=== PATIENT | male | born 1955 | race African-American/Black ===

== ENCOUNTER 2017-03-20 06:21 | Emergency (ER) | payer SELFPAY ==
[~2017-03-20] VITALS: Ht 193 cm; Wt 128.0 kg
[~2017-03-20 06:21] MED LIST: HYDR12.57 PO; LISI-366 PO
[2017-03-20 06:22] VITALS: BP 160/85; PULSE 87; RESP 16; TEMP 98.4; O2SAT 95
[2017-03-20 07:39] VITALS: BP 173/92; PULSE 68; RESP 24; O2SAT 99
[2017-03-20] MEDS ORDERED: LISI40TA PO ×2 (07:39→09:39)
[2017-03-20] MEDS ORDERED: SODIUM CHLORIDE 0.9% FLUSH 10 ML FLUSH IV FLUSH PRN (07:45)
[2017-03-20 07:48] VITALS: O2SAT 99
[2017-03-20 08:00] VITALS: BP 169/98; PULSE 66; RESP 22; O2SAT 99
[2017-03-20 08:14] LABS: AUTOMATED NEUTROPHIL # 1.5 TH/MM3 (1.8-7.7); EOSINOPHIL # 0.1 TH/MM3 (0-0.4); EOSINOPHIL % 1.6 % (0.0-4.0); HEMO FLAGS DIFF FINAL; LYMPH % 43.3 % (9.0-44.0); LYMPHOCYTE # 1.6 TH/MM3 (1.0-4.8); MEAN CELL VOLUME 98.7 FL (80.0-100.0); MEAN CORPUSCULAR HEMOGLOBIN 33.2 PG (27.0-34.0); MEAN CORPUSCULAR HGB CONC 33.6 % (32.0-36.0); MONO % 12.7 % (0.0-8.0); NEUT % 41.4 % (16.0-70.0); PLATELET COUNT 151 TH/MM3 (150-450); RED BLOOD COUNT 3.85 MIL/MM3 (4.50-5.90); WHITE BLOOD COUNT 3.7 TH/MM3 (4.0-11.0)
--- NOTE | 2017-03-20 08:30 | PD ---
HPI Chief Complaint: Complaint Time Seen by Provider: 07:30 Travel History International Travel<30 days: No Contact w/Intl Traveler<30days: No Traveled to known affect area: No History of Present Illness HPI The patient 61 years old. He's had testicular swelling for 1 week. He notes it 's worse after working for 12 hours at the [employer]. He reports normal bowel and bladder habits. His appetite has been normal. He reports that he has been noncompliant with hydrochlorothiazide and lisinopril for a few months due to lack of insurance. Previously he was following with the patient assistance program. He denies chest pain or shortness of breath. No abdominal pain. No fever. PFSH Past Medical History Cardiovascular Problems: Yes (HTN) Diabetes: No (never been checked) Hepatitis: Yes (liver disease) Tetanus Vaccination: < 5 Years Influenza Vaccination: No Past Surgical History Surgical History: No Previous Surgery Social History Alcohol Use: Yes (OCC) Tobacco Use: No Substance Use: No Allergies-Medications (Allergen,Severity, Reaction): Coded Allergies: Penicillin (Verified Allergy, Severe, Dizziness, 03/20/17) Reported Meds & Prescriptions Reported Meds & Active Scripts Active Lisinopril 40 Mg Tab 40 Mg PO DAILY 30 Days Hydrochlorothiazide 12.5 Mg Cap 12.5 Mg PO DAILY 30 Days Review of Systems Except as stated in HPI: all other systems reviewed are Neg General / Constitutional: No: Fever Genitourinary: No: Urgency, Decreased Urinary Output, Flank Pain Physical Exam Narrative GENERAL: 61-year-old male well-nourished well-developed no acute distress SKIN: Focused skin assessment warm/dry. There is no crepitus or cellulitic change about the perineum or scrotum. HEAD: Atraumatic. Normocephalic. EYES: Pupils equal and round. No scleral icterus. No injection or drainage. ENT: No nasal bleeding or discharge. Mucous membranes pink and moist. NECK: Trachea midline. No JVD. CARDIOVASCULAR: Regular rate and rhythm. No murmur appreciated. RESPIRATORY: No accessory muscle use. Clear to auscultation. Breath sounds equal bilaterally. GASTROINTESTINAL: Abdomen is somewhat prominent though soft and nontender. MUSCULOSKELETAL: No obvious deformities. No clubbing. No cyanosis. No edema. 2+ pitting edema from the toes to the mid thighs bilaterally. NEUROLOGICAL: Awake and alert. No obvious cranial nerve deficits. Motor grossly within normal limits. Normal speech. PSYCHIATRIC: Appropriate mood and affect; insight and judgment normal. Data Data Last Documented VS Vital Signs Date Time Temp Pulse Resp B/P Pulse Ox O2 Delivery O2 Flow Rate FiO2 03/20/17 09:00 56 24 163/83 99 Room Air 03/20/17 06:22 98.4 Vital signs reviewed Orders Complete Blood Count With Diff (03/20/17 07:44) Comprehensive Metabolic Panel (03/20/17 07:44) Iv Access Insert/Monitor (03/20/17 07:44) Ecg Monitoring (03/20/17 07:44) Oximetry (03/20/17 07:44) Sodium Chloride 0.9% Flush (Ns Flush) (03/20/17 07:45) Us Testicles W Doppler (03/20/17 07:44) Labs Laboratory Tests Test 03/20/17 07:50 White Blood Count 3.7 TH/MM3 Red Blood Count 3.85 MIL/MM3 Hemoglobin 12.8 GM/DL Hematocrit 38.0 % Mean Corpuscular Volume 98.7 FL Mean Corpuscular Hemoglobin 33.2 PG Mean Corpuscular Hemoglobin 33.6 % Concent Red Cell Distribution Width 14.0 % Platelet Count 151 TH/MM3 Mean Platelet Volume 8.2 FL Neutrophils (%) (Auto) 41.4 % Lymphocytes (%) (Auto) 43.3 % Monocytes (%) (Auto) 12.7 % Eosinophils (%) (Auto) 1.6 % Basophils (%) (Auto) 1.0 % Neutrophils # (Auto) 1.5 TH/MM3 Lymphocytes # (Auto) 1.6 TH/MM3 Monocytes # (Auto) 0.5 TH/MM3 Eosinophils # (Auto) 0.1 TH/MM3 Basophils # (Auto) 0.0 TH/MM3 CBC Comment DIFF FINAL Differential Comment Sodium Level 141 MEQ/L Potassium Level 3.5 MEQ/L Chloride Level 105 MEQ/L Carbon Dioxide Level 27.2 MEQ/L Anion Gap 9 MEQ/L Blood Urea Nitrogen 3 MG/DL Creatinine 0.69 MG/DL Estimat Glomerular Filtration 142 ML/MIN Rate Random Glucose 100 MG/DL Calcium Level 8.4 MG/DL Total Bilirubin 1.3 MG/DL Aspartate Amino Transf 81 U/L (AST/SGOT) Alanine Aminotransferase 38 U/L (ALT/SGPT) Alkaline Phosphatase 151 U/L Total Protein 8.3 GM/DL Albumin 2.2 GM/DL MDM Medical Decision Making Medical Screen Exam Complete: Yes Emergency Medical Condition: Yes Medical Record Reviewed: Yes Differential Diagnosis Hydrocele, varicocele, edema, liver disease, Amanda's gangrene, scrotal abscess Narrative Course CBC & BMP Diagram 03/20/17 07:50 T bili 1.3 AST 81 Alk phos 151 T protein 8.3 Albumin 2.2 Testicular doppler: Bilateral hydrocele and varicocele noted. A sizable right inguinal hernia containing fluid and small bowel is noted. Pronounced swelling of the scrotal soft tissues. The patient does not have bowel obstruction or strangulation. with the hernia is reducible to bedside although the patient has a large amount of scrotal edema. We'll provide him with a refill for his Lasix and hydrochlorothiazide. He was counseled to stop drinking alcohol. He was also advised that early cirrhosis is a concern and the risks of continued alcohol consumption were discussed in detail. The patient verbalized understanding. Case management to discuss the patient outpatient follow-up responsibilities. Diagnosis Primary Impression: Edema Qualified Code: R60.9 - Edema, unspecified type Additional Impression: Hernia, inguinal, right Referrals: Felipe Coyle MD call for appointment Amauri Fox MD call for appointment Alda Lorenzo MD call for appointment Patient Assistance Program Additional Instructions: You have a choice when it comes to health care, and we are glad that you chose [facility]. Hopefully, we have met your expectations on today's visit. You are welcome to return to [facility] at any time, as we are committed to meeting the health care needs of our community. Med/Other Pt SpecificInfo: Prescription(s) given Scripts Lisinopril 40 Mg Tab40 Mg PO DAILY 30 Days Ref 0 Prov:Betito Montesinos MD 03/20/17 Hydrochlorothiazide 12.5 Mg Cap12.5 Mg PO DAILY 30 Days Ref 3 Prov:Betito Montesinos MD 03/20/17 Disposition: 01 DISCHARGE HOME Condition: Stable Betito Montesinos MD Mar 20, 2017 08:30
[2017-03-20 08:32] LABS: ALT (GPT) 38 U/L (12-78); ANION GAP 9 MEQ/L (5-15); AST (GOT) 81 U/L (15-37); BICARBONATE 27.2 MEQ/L (21.0-32.0); BLOOD UREA NITROGEN 3 MG/DL (7-18); CHLORIDE 105 MEQ/L (98-107); GLOMERULAR FILTRATION RATE 142 ML/MIN (>89); POTASSIUM 3.5 MEQ/L (3.5-5.1); SODIUM (NA) 141 MEQ/L (136-145)
[2017-03-20 08:35] LABS: ALKALINE PHOSPHATASE 151 U/L (45-117); TOTAL BILIRUBIN ADULT 1.3 MG/DL (0.2-1.0)
[2017-03-20 09:00] VITALS: BP 163/83; PULSE 56; RESP 24; O2SAT 99
--- NOTE | 2017-03-20 09:16 | RADRPT ---
EXAM DATE/TIME: 03/20/2017 07:55 [facility] COMPARISON: CT ABDOMEN & PELVIS W CONTRAST, July 03, 2015, 11:09. INDICATIONS : Pain. MEDICAL HISTORY : Hypertension. Hepatitis. SURGICAL HISTORY : Tonsillectomy. ENCOUNTER: Initial ACUITY: 1 week PAIN SCORE: 8/10 LOCATION: Bilateral testicles. MEASUREMENTS: RIGHT TESTICLE: 3.2 x 2.2 x 2.3cm LEFT TESTICLE: 3.4 x 1.9 x 1.9cm FINDINGS: The testicles are intact with normal Doppler blood flow bilaterally. No intratesticular mass is ident ified. A tiny epididymal cyst is present on the right side. Bilateral hydrocele and varicocele are no aries. A sizable right inguinal hernia containing fluid and bowel loops is noted. There is pronounced s welling of the scrotal soft tissues. CONCLUSION: Testicles are unremarkable. Sizable right bowel containing and fluid containing right inguinal hernia . Bilateral hydroceles. Phil Dao MD on March 20, 2017 at 9:10 Board Certified Radiologist. This report was verified electronically.
[2017-03-20] MEDS ORDERED: HYDR12.57 PO (09:39)
== END 2017-03-20 10:15 | disposition home or self-care (01) ==
LOC: NEPE 06:21
DX: F10.10 Alcohol abuse, uncomplicated (principal); I10 Essential (primary) hypertension; K40.90 Unilateral inguinal hernia, without obstruction or gangrene, not specified as recurrent; Z91.19 Patient's noncompliance with other medical treatment and regimen
CPT/HCPCS: 76870; 80053; 85025; 93975; 99284

== ENCOUNTER 2017-10-20 10:37 | Inpatient (IN) | payer SELFPAY ==
[~2017-10-20] VITALS: Ht 193 cm; Wt 135.8 kg
[2017-10-20] VITALS (7 sets, daily range): BP systolic 123–160; BP diastolic 63–82; PULSE 76–97; RESP 17–20; TEMP 97.7–99.1; O2SAT 96–99
[~2017-10-20 10:37] MED LIST changes: -LISI-366 PO; +LISI40TA PO
[2017-10-20] MEDS ORDERED: FUROSEMIDE 40 MG/4 ML VIAL IV PUSH ONE (11:30)
[2017-10-20] MEDS ORDERED: AZTREONAM INJ 2,000 MG in SODIUM CHLORIDE 0.9% INJ 100 ML IV STA (11:30)
[2017-10-20] MEDS ORDERED: VANCOMYCIN INJ 1,000 MG in SODIUM CHLOR 0.9% 250 ML INJ 250 ML IV STA (11:30)
--- NOTE | 2017-10-20 11:34 | PD ---
HPI Chief Complaint: Edema Time Seen by Provider: 11:25 Travel History International Travel<30 days: No Contact w/Intl Traveler<30days: No Traveled to known affect area: No History of Present Illness HPI 62-year-old -Citizen Of [place] male with history of recurrent lower extremity and scrotal edema in the past. Patient states that last night he noticed that his right leg was very swollen, and weeping of clear fluid. He states he has been off his Lasix for over a month as he has lost his patient's assistance. Patient denies significant pain, fever, chills, or other symptoms. He does state he has had a few beers off and on but does not drink daily. There is mention in the past and his note, that he may have some liver disease. He denies shortness of breath, chest pain, abdominal pain, changes in urine or bowels. He denies being a diabetic. He complains of no pain. He is allergic to penicillin. PFSH Past Medical History Cardiovascular Problems: Yes (HTN) Diabetes: No (never been checked) Hepatitis: Yes (liver disease) Social History Alcohol Use: Yes (OCC) Tobacco Use: No Substance Use: No Allergies-Medications (Allergen,Severity, Reaction): Coded Allergies: penicillin G (Unverified Allergy, Severe, Dizziness, 04/30/17) Reported Meds & Prescriptions Reported Meds & Active Scripts Active Lisinopril 40 Mg Tab 40 Mg PO DAILY 30 Days Hydrochlorothiazide 12.5 Mg Cap 12.5 Mg PO DAILY 30 Days Review of Systems ROS Limitations: Poor Historian Except as stated in HPI: all other systems reviewed are Neg General / Constitutional: No: Fever, Chills Eyes: No: Visual changes HENT: No: Headaches Cardiovascular: No: Chest Pain or Discomfort, Palpitations, Irregular Rhythm, Tachycardia Respiratory: No: Cough, Shortness of Breath Gastrointestinal: No: Abdominal Pain Genitourinary: No: Dysuria Musculoskeletal: Positive: Edema, No: Pain Skin: Positive Lesions, No Rash Neurologic: No: Weakness Psychiatric: No: Depression Endocrine: No: Polydipsia Hematologic/Lymphatic: No: Easy Bruising Physical Exam Exam Limitations: Poor Historian Narrative GENERAL: Patient appears in no obvious distress. SKIN: Warm and dry. Normal color. Normal turgor. Patient has obvious stretching of the skin of the right lower extremity secondary to 3+ nonpitting edema, with skin breakdown in the anterior barrios with clear serous weeping fluid. He has no obvious increased warmth, or erythema suggestive of cellulitis. HEAD: Atraumatic. Normocephalic. EYES: Pupils equal and round. No scleral icterus. No injection or drainage. ENT: No nasal bleeding or discharge. Mucous membranes pink and moist. Pharynx is clear. Airways patent NECK: Trachea midline. Supple and nontender CARDIOVASCULAR: Regular rate and rhythm. RESPIRATORY: No accessory muscle use. Clear to auscultation. Breath sounds equal bilaterally. GASTROINTESTINAL: Abdomen soft, non-tender, nondistended. Hepatic and splenic margins not palpable. MUSCULOSKELETAL: Extremities without clubbing, cyanosis, or edema. No obvious deformities. NEUROLOGICAL: Awake and alert. No obvious cranial nerve deficits. Motor grossly within normal limits. Five out of 5 muscle strength in the arms and legs. Normal speech. PSYCHIATRIC: Appropriate mood and affect; insight and judgment normal. Data Data Last Documented VS Vital Signs Date Time Temp Pulse Resp B/P (MAP) Pulse Ox O2 Delivery O2 Flow Rate FiO2 10/20/17 13:05 Room Air 10/20/17 11:30 98 10/20/17 10:39 98.2 97 17 156/82 (106) Orders Orders Sepsis Workup Initiated (10/20/17 ) Electrocardiogram (10/20/17 11:30) Complete Blood Count With Diff (10/20/17 11:30) Comprehensive Metabolic Panel (10/20/17 11:30) Prothrombin Time / Inr (Pt) (10/20/17 11:30) Act Partial Throm Time (Ptt) (10/20/17 11:30) Lactic Acid Sepsis Protocol (10/20/17 11:30) Magnesium (Mg) (10/20/17 11:30) Ckmb (Isoenzyme) Profile (10/20/17 11:30) Troponin I (10/20/17 11:30) Urinalysis - C+S If Indicated (10/20/17 11:30) Blood Culture (10/20/17 11:30) Chest, Single Ap (10/20/17 11:30) Blood Glucose (10/20/17 11:30) Ecg Monitoring (10/20/17 11:30) Iv Access Insert/Monitor (10/20/17 11:30) Oximetry (10/20/17 11:30) Oxygen Administration (10/20/17 11:30) Aztreonam Inj (Azactam Inj) (10/20/17 11:30) Vancomycin Inj (Vancomycin Inj) (10/20/17 11:30) Furosemide Inj (Lasix Inj) (10/20/17 11:30) B-Type Natriuretic Peptide (10/20/17 11:30) Us Leg Venous Doppler (10/20/17 11:30) CKMB (10/20/17 11:40) CKMB% (10/20/17 11:40) Potassium Chloride (Kcl) (10/20/17 13:00) Potassium Chlor 20 Meq Premix (Kcl 20 Me (10/20/17 14:00) Us Abdomen Liver (10/20/17 ) Bilirubin Components (10/20/17 13:15) Vancomycin Consult Pharmacy (Vancomycin (10/20/17 13:30) Aztreonam Inj (Azactam Inj) (10/20/17 20:00) Admit To Inpatient (10/20/17 ) Vital Signs (Adult) Q4H (10/20/17 13:17) Activity Oob With Assistance (10/20/17 13:17) Intake + Output EUNICE.QSHIFT (10/20/17 13:17) Diet Regular Basic (10/20/17 Lunch) Sodium Chloride 0.9% Flush (Ns Flush) (10/20/17 13:30) Sodium Chloride 0.9% Flush (Ns Flush) (10/20/17 21:00) Ondansetron Inj (Zofran Inj) (10/20/17 13:30) Comprehensive Metabolic Panel (10/21/17 06:00) Complete Blood Count With Diff (10/21/17 06:00) Pt Request For Service (10/20/17 13:17) Case Management Consult (10/20/17 13:17) Heparin Inj (Heparin Inj) (10/20/17 13:30) Naloxone Inj (Narcan Inj) (10/20/17 13:30) Magnesium Hydroxide Liq (Milk Of Magnesi (10/20/17 13:30) Sennosides (Senokot) (10/20/17 13:30) Bisacodyl Supp (Dulcolax Supp) (10/20/17 13:30) Lactulose Liq (Lactulose Liq) (10/20/17 13:30) Inpatient Certification (10/20/17 ) Potassium Chloride (Kcl) (10/20/17 13:30) Admit Order (Ed Use Only) (10/20/17 13:18) Labs Laboratory Tests Test 10/20/17 11:40 White Blood Count 23.1 TH/MM3 Red Blood Count 4.42 MIL/MM3 Hemoglobin 14.1 GM/DL Hematocrit 39.9 % Mean Corpuscular Volume 90.2 FL Mean Corpuscular Hemoglobin 31.8 PG Mean Corpuscular Hemoglobin Concent 35.3 % Red Cell Distribution Width 13.8 % Platelet Count 274 TH/MM3 Mean Platelet Volume 8.4 FL Neutrophils (%) (Auto) 85.3 % Lymphocytes (%) (Auto) 7.0 % Monocytes (%) (Auto) 7.4 % Eosinophils (%) (Auto) 0.2 % Basophils (%) (Auto) 0.1 % Neutrophils # (Auto) 19.7 TH/MM3 Lymphocytes # (Auto) 1.6 TH/MM3 Monocytes # (Auto) 1.7 TH/MM3 Eosinophils # (Auto) 0.0 TH/MM3 Basophils # (Auto) 0.0 TH/MM3 CBC Comment DIFF FINAL Differential Comment Prothrombin Time 12.9 SEC Prothromb Time International Ratio 1.3 RATIO Activated Partial Thromboplast Time 29.3 SEC Urine Color TEE Urine Turbidity CLEAR Urine pH 6.0 Urine Specific [place] 1.016 Urine Protein TRACE mg/dL Urine Glucose (UA) NEG mg/dL Urine Ketones NEG mg/dL Urine Occult Blood NEG Urine Nitrite NEG Urine Bilirubin NEG Urine Urobilinogen GREATER THAN 12.0 MG/DL Urine Leukocyte Esterase NEG Urine RBC 1 /hpf Urine WBC 1 /hpf Urine Squamous Epithelial Cells 1 /hpf Microscopic Urinalysis Comment CULT NOT INDICATED Blood Urea Nitrogen 10 MG/DL Creatinine 0.77 MG/DL Random Glucose 105 MG/DL Total Protein 9.1 GM/DL Albumin 2.3 GM/DL Calcium Level 8.4 MG/DL Magnesium Level 3.0 MG/DL Alkaline Phosphatase 219 U/L Aspartate Amino Transf (AST/SGOT) 82 U/L Alanine Aminotransferase (ALT/SGPT) 56 U/L Total Bilirubin 3.4 MG/DL Sodium Level 134 MEQ/L Potassium Level 3.0 MEQ/L Chloride Level 95 MEQ/L Carbon Dioxide Level 31.2 MEQ/L Anion Gap 8 MEQ/L Estimat Glomerular Filtration Rate 124 ML/MIN Lactic Acid Level 1.4 mmol/L Total Creatine Kinase 172 U/L Creatine Kinase MB 4.8 NG/ML Troponin I LESS THAN 0.02 NG/ML B-Type Natriuretic Peptide 56 PG/ML MDM Medical Decision Making Medical Screen Exam Complete: Yes Emergency Medical Condition: Yes Medical Record Reviewed: Yes Differential Diagnosis Pedal edema. CHF. Liver disease. Ascites. Cellulitis. DVT. Narrative Course Patient is medically stable at time of exam. Labs ordered including CBC, CMP, lactic acid, proBNP, cardiac panel, urinalysis , and blood cultures 2. IV access is obtained the patient is given 40 mg Lasix IV as well as 4.5 g Zosyn IV as well as 1000 mg vancomycin IV. Chest x-ray and EKG is ordered. Ultrasound of the right lower extremity is ordered. Ultrasound is negative for DVT. CBC showed WBC of 23.1. Coagulation studies shows a PT of 12.9, and INR 1.3 Chemistry significant for sodium 134, potassium 3.0, chloride is 95. Calcium is 8.4, magnesium 3.0, total bilirubin is 3.4, AST is 82, Alk phos is 219, CK-MB is 4.8, however troponin is less than 0.02. ProBNP is 56 , total protein is 9.1 and albumin is 2.3 Urinalysis is unremarkable other than urobilinogen greater than 12. Patient is felt to be septic, and is given 20 mEq KCl p.o. in addition to 20 mEq KCl IV, and hospitalist is called for admission. Diagnosis Primary Impression: Sepsis affecting skin Admitting Information Admitting Physician Requests: Admit Condition: Stable Amauri Worley Oct 20, 2017 11:34
[2017-10-20 12:00] LABS: AUTOMATED NEUTROPHIL # 19.7 TH/MM3 (1.8-7.7); BASOPHIL % 0.1 % (0.0-2.0); EOSINOPHIL % 0.2 % (0.0-4.0); HEMATOCRIT 39.9 % (39.0-51.0); HEMOGLOBIN 14.1 GM/DL (13.0-17.0); LYMPHOCYTE # 1.6 TH/MM3 (1.0-4.8); MEAN CELL VOLUME 90.2 FL (80.0-100.0); MEAN CORPUSCULAR HEMOGLOBIN 31.8 PG (27.0-34.0); MEAN CORPUSCULAR HGB CONC 35.3 % (32.0-36.0); MEAN PLATELET VOLUME 8.4 FL (7.0-11.0); MONO % 7.4 % (0.0-8.0); MONOCYTE # 1.7 TH/MM3 (0-0.9); NEUT % 85.3 % (16.0-70.0); PLATELET COUNT 274 TH/MM3 (150-450); RED BLOOD COUNT 4.42 MIL/MM3 (4.50-5.90); RED CELL DISTRIBUTION WIDTH 13.8 % (11.6-17.2); WHITE BLOOD COUNT 23.1 TH/MM3 (4.0-11.0)
[2017-10-20 12:09] LABS: INTERNATIONAL NORMALIZED RATIO 1.3 RATIO; PROTHROMBIN TIME - PATIENT 12.9 SEC (9.8-11.6)
[2017-10-20 12:11] LABS: BLOOD, URINE NEG (NEG); GLUCOSE,URINE NEG (NEG); KETONE, URINE NEG (NEG); NITRITE,URINE NEG (NEG); SQUAMOUS EPITHELIAL CELL URINE 1 /hpf (0-5); URINE LEUKOCYTE ESTERASE NEG (NEG)
[2017-10-20 12:20] LABS: ALBUMIN 2.3 GM/DL (3.4-5.0); ALT (GPT) 56 U/L (12-78); AST (GOT) 82 U/L (15-37); BICARBONATE 31.2 MEQ/L (21.0-32.0); BLOOD UREA NITROGEN 10 MG/DL (7-18); CALCIUM 8.4 MG/DL (8.5-10.1); CHLORIDE 95 MEQ/L (98-107); CREATININE 0.77 MG/DL (0.60-1.30); GLOMERULAR FILTRATION RATE 124 ML/MIN (>89); GLUCOSE,RANDOM 105 MG/DL (74-106); SODIUM (NA) 134 MEQ/L (136-145)
--- NOTE | 2017-10-20 12:22 | RADRPT ---
EXAM DATE/TIME: 10/20/2017 11:47 [facility] COMPARISON: No previous studies available for comparison. INDICATIONS : Right leg edema. MEDICAL HISTORY : Hypertension. Hepatitis. SURGICAL HISTORY : Tonsillectomy. ENCOUNTER: Initial ACUITY: 2 weeks PAIN SCORE: 8/10 LOCATION: Right leg. TECHNIQUE: Venous ultrasound of the leg was performed from the inguinal ligament to the proximal calf. Real-kaylin e, color Doppler and spectral tracing, compression and augmentation techniques were used. FINDINGS: There is normal compressibility of the deep venous system from the inguinal region to the proximal ca lf. No echogenic clot is seen in the lumen of the common femoral, femoral, popliteal, and posterior tibial veins. There is a normal response of the venous system to proximal and distal augmentation an d respiration. Multiple enlarged inguinal lymph nodes are noted. Fatty hilum appears reasonably preserved within th e lymph nodes. CONCLUSION: Negative for deep venous thrombosis. Inguinal lymph nodes. Andriy Ivory MD FACR on October 20, 2017 at 12:19 Board Certified Radiologist. This report was verified electronically.
[2017-10-20 12:24] LABS: ALKALINE PHOSPHATASE 219 U/L (45-117); TOTAL BILIRUBIN ADULT 3.4 MG/DL (0.2-1.0); TOTAL PROTEIN 9.1 GM/DL (6.4-8.2); TROPONIN I LESS THAN 0.02 NG/ML (0.02-0.05)
[2017-10-20 12:26] LABS: URINE COLOR AMBER (YELLW/STRAW)
[2017-10-20 12:27] LABS: BILIRUBIN, URINE NEG (NEG)
[2017-10-20] MEDS ORDERED: POTASSIUM CHLORIDE 20 MEQ CONTROLLED RELEASE TAB PO ONE (13:00)
--- NOTE | 2017-10-20 13:12 | RADRPT ---
EXAM DATE/TIME: 10/20/2017 11:58 [facility] COMPARISON: No previous studies available for comparison. INDICATIONS : Cough. MEDICAL HISTORY : Hypertension. Diabetes. Liver disease. SURGICAL HISTORY : None. ENCOUNTER: Initial ACUITY: 3 days PAIN SCORE: 0/10 LOCATION: Bilateral chest FINDINGS: The heart is enlarged. The pulmonary vascular pattern is normal. The lungs are clear. CONCLUSION: 1. Cardiomegaly. 2. No focal infiltrate or pulmonary vascular congestion. Jose F Albert MD on October 20, 2017 at 13:10 Board Certified Radiologist. This report was verified electronically.
[2017-10-20] MEDS ORDERED: NALOXONE HCL 0.4 MG/ML AMP IV PUSH PRN (13:30)
[2017-10-20] MEDS ORDERED: Vancomycin Consult Pharmacy 1 EA OTHER SCH (13:30)
[2017-10-20] MEDS ORDERED: SODIUM CHLORIDE 0.9% FLUSH 10 ML FLUSH IV FLUSH PRN (13:30)
[2017-10-20] MEDS ORDERED: SENNOSIDES 8.6 MG TAB PO PRN (13:30)
[2017-10-20] MEDS ORDERED: ONDANSETRON HCL 4 MG/2 ML VIAL IVP PRN (13:30)
[2017-10-20] MEDS ORDERED: MAGNESIUM HYDROXIDE SUSP 30 ML CUP PO PRN (13:30)
[2017-10-20] MEDS ORDERED: LACTULOSE SYRUP 20 GM/30 ML CUP PO PRN (13:30)
[2017-10-20] MEDS ORDERED: POTASSIUM CHLORIDE 10 MEQ CONTROLLED RELEASE TAB PO ONE (13:30)
[2017-10-20] MEDS ORDERED: BISACODYL 10 MG SUPP RECTAL PRN (13:30)
[2017-10-20] MEDS ORDERED: POTASSIUM CHLOR 20 MEQ PREMIX 100 ML IV ONE (14:00)
--- NOTE | 2017-10-20 14:13 | PD ---
Data Data Last Documented VS Vital Signs Date Time Temp Pulse Resp B/P (MAP) Pulse Ox O2 Delivery O2 Flow Rate FiO2 10/20/17 13:05 Room Air 10/20/17 11:30 98 10/20/17 10:39 98.2 97 17 156/82 (106) Orders Orders Sepsis Workup Initiated (10/20/17 ) Electrocardiogram (10/20/17 11:30) Complete Blood Count With Diff (10/20/17 11:30) Comprehensive Metabolic Panel (10/20/17 11:30) Prothrombin Time / Inr (Pt) (10/20/17 11:30) Act Partial Throm Time (Ptt) (10/20/17 11:30) Lactic Acid Sepsis Protocol (10/20/17 11:30) Magnesium (Mg) (10/20/17 11:30) Ckmb (Isoenzyme) Profile (10/20/17 11:30) Troponin I (10/20/17 11:30) Urinalysis - C+S If Indicated (10/20/17 11:30) Blood Culture (10/20/17 11:30) Chest, Single Ap (10/20/17 11:30) Blood Glucose (10/20/17 11:30) Ecg Monitoring (10/20/17 11:30) Iv Access Insert/Monitor (10/20/17 11:30) Oximetry (10/20/17 11:30) Oxygen Administration (10/20/17 11:30) Aztreonam Inj (Azactam Inj) (10/20/17 11:30) Vancomycin Inj (Vancomycin Inj) (10/20/17 11:30) Furosemide Inj (Lasix Inj) (10/20/17 11:30) B-Type Natriuretic Peptide (10/20/17 11:30) Us Leg Venous Doppler (10/20/17 11:30) CKMB (10/20/17 11:40) CKMB% (10/20/17 11:40) Potassium Chloride (Kcl) (10/20/17 13:00) Potassium Chlor 20 Meq Premix (Kcl 20 Me (10/20/17 14:00) Us Abdomen Liver (10/20/17 ) Vancomycin Consult Pharmacy (Vancomycin (10/20/17 13:30) Aztreonam Inj (Azactam Inj) (10/20/17 20:00) Admit To Inpatient (10/20/17 ) Vital Signs (Adult) Q4H (10/20/17 13:17) Activity Oob With Assistance (10/20/17 13:17) Intake + Output EUNICE.QSHIFT (10/20/17 13:17) Diet Regular Basic (10/20/17 Lunch) Sodium Chloride 0.9% Flush (Ns Flush) (10/20/17 13:30) Sodium Chloride 0.9% Flush (Ns Flush) (10/20/17 21:00) Ondansetron Inj (Zofran Inj) (10/20/17 13:30) Comprehensive Metabolic Panel (10/21/17 06:00) Complete Blood Count With Diff (10/21/17 06:00) Pt Request For Service (10/20/17 13:17) Case Management Consult (10/20/17 13:17) Heparin Inj (Heparin Inj) (10/20/17 14:00) Naloxone Inj (Narcan Inj) (10/20/17 13:30) Magnesium Hydroxide Liq (Milk Of Magnesi (10/20/17 13:30) Sennosides (Senokot) (10/20/17 13:30) Bisacodyl Supp (Dulcolax Supp) (10/20/17 13:30) Lactulose Liq (Lactulose Liq) (10/20/17 13:30) Inpatient Certification (10/20/17 ) Potassium Chloride (Kcl) (10/20/17 13:30) Admit Order (Ed Use Only) (10/20/17 13:18) Bilirubin Components (10/20/17 11:40) Labs Laboratory Tests Test 10/20/17 11:40 White Blood Count 23.1 TH/MM3 Red Blood Count 4.42 MIL/MM3 Hemoglobin 14.1 GM/DL Hematocrit 39.9 % Mean Corpuscular Volume 90.2 FL Mean Corpuscular Hemoglobin 31.8 PG Mean Corpuscular Hemoglobin Concent 35.3 % Red Cell Distribution Width 13.8 % Platelet Count 274 TH/MM3 Mean Platelet Volume 8.4 FL Neutrophils (%) (Auto) 85.3 % Lymphocytes (%) (Auto) 7.0 % Monocytes (%) (Auto) 7.4 % Eosinophils (%) (Auto) 0.2 % Basophils (%) (Auto) 0.1 % Neutrophils # (Auto) 19.7 TH/MM3 Lymphocytes # (Auto) 1.6 TH/MM3 Monocytes # (Auto) 1.7 TH/MM3 Eosinophils # (Auto) 0.0 TH/MM3 Basophils # (Auto) 0.0 TH/MM3 CBC Comment DIFF FINAL Differential Comment Prothrombin Time 12.9 SEC Prothromb Time International Ratio 1.3 RATIO Activated Partial Thromboplast Time 29.3 SEC Urine Color TEE Urine Turbidity CLEAR Urine pH 6.0 Urine Specific [place] 1.016 Urine Protein TRACE mg/dL Urine Glucose (UA) NEG mg/dL Urine Ketones NEG mg/dL Urine Occult Blood NEG Urine Nitrite NEG Urine Bilirubin NEG Urine Urobilinogen GREATER THAN 12.0 MG/DL Urine Leukocyte Esterase NEG Urine RBC 1 /hpf Urine WBC 1 /hpf Urine Squamous Epithelial Cells 1 /hpf Microscopic Urinalysis Comment CULT NOT INDICATED Blood Urea Nitrogen 10 MG/DL Creatinine 0.77 MG/DL Random Glucose 105 MG/DL Total Protein 9.1 GM/DL Albumin 2.3 GM/DL Calcium Level 8.4 MG/DL Magnesium Level 3.0 MG/DL Alkaline Phosphatase 219 U/L Aspartate Amino Transf (AST/SGOT) 82 U/L Alanine Aminotransferase (ALT/SGPT) 56 U/L Total Bilirubin 3.4 MG/DL Sodium Level 134 MEQ/L Potassium Level 3.0 MEQ/L Chloride Level 95 MEQ/L Carbon Dioxide Level 31.2 MEQ/L Anion Gap 8 MEQ/L Estimat Glomerular Filtration Rate 124 ML/MIN Lactic Acid Level 1.4 mmol/L Total Creatine Kinase 172 U/L Creatine Kinase MB 4.8 NG/ML Troponin I LESS THAN 0.02 NG/ML B-Type Natriuretic Peptide 56 PG/ML MDM Supervised Visit with ERICK: Yes Narrative Course The history, exam, and medical decision-making in the associated midlevel provider note were completed with my assistance. I reviewed and agree with the findings presented. I attest that I had a [id number] encounter with the patient on the same day, and personally performed and documented my assessment and findings in the medical record. *My assessment and Findings: This is a 62-year-old male who presents to the emergency department with swelling of the right lower extremity which is impressive on exam with erythema, some blistering and skin breakdown. He says he used to be on Lasix but he no longer has patient assistance so he is not on any medications. He says the Lasix To swelling down. Labs demonstrate a marked leukocytosis which I suspect is secondary to the patient's cellulitis. Ultrasound was negative for DVT. He will be admitted for IV antibiotics, diuresis and wound care. Diagnosis Primary Impression: Sepsis affecting skin Condition: Stable Rhonda Molina MD Oct 20, 2017 14:13
[2017-10-20 14:32] LABS: DIRECT BILIRUBIN ADULT 2.4 MG/DL (0.0-0.2)
--- NOTE | 2017-10-20 14:32 | RADRPT ---
EXAM DATE/TIME: 10/20/2017 13:47 [facility] COMPARISON: No previous studies available for comparison. INDICATIONS : Increased lab values. MEDICAL HISTORY : Hypertension. Hepatitis. SURGICAL HISTORY : Tonsillectomy. ENCOUNTER: Initial ACUITY: 1 day PAIN SCORE: 0/10 LOCATION: Bilateral upper quadrant MEASUREMENTS: LIVER: 19.3 cm length COMMON DUCT: 5 mm RIGHT KIDNEY: 14.8 x 6.1 x 5.4 cm SPLEEN: 14.5 cm length FINDINGS: Ultrasound of the upper abdomen demonstrates increased echogenicity of the liver compatible with fatt y infiltration or hepatocellular disease. The spleen is mildly enlarged without focal lesion. There a re multiple stones within the gallbladder without wall thickening or pericholecystic fluid the larges t measuring 2 mm. The right kidney is unremarkable. There is a trace of free fluid in the hepatorenal fossa. CONCLUSION: 1. Cholelithiasis 2. Echogenic liver compatible with fatty infiltration or hepatocellular disease. 3. Splenomegaly Al Jhaveri MD on October 20, 2017 at 14:29 Board Certified Radiologist. This report was verified electronically.
[2017-10-20] MEDS: HEPARIN SODIUM - SQ 10,000 UNITS/ML VIAL SQ SCH (14:53)
[2017-10-20] MEDS ORDERED: LORazepam 1 MG TAB PO PRN (15:15)
[2017-10-20] MEDS ORDERED: LORazepam 2 MG/ML VIAL IV PUSH PRN ×4 (15:15)
[2017-10-20] MEDS ORDERED: FLUMAZENIL 0.5 MG/5 ML VIAL IV PUSH PRN (15:15)
[2017-10-20] MEDS ORDERED: LORazepam 2 MG TAB PO PRN (15:15)
--- NOTE | 2017-10-20 15:23 | HHI.HP ---
[facility] Service [facility] Primary Care Physician No Primary Care Physician Admission Diagnosis Cellulitis/Sepsis Diagnoses: Travel History International Travel<30 Days: No Contact w/Intl Traveler <30 Da: No Traveled to Known Affected Are: No History of Present Illness 62-year-old with hypertension, who presents with a several week history of worsening right lower extremity edema, erythema. He denies any fevers, chills, denies any pain. Says he otherwise feels fine. He says he came into the hospital because all his friends keep telling him that he needs to get this checked out. Patient reports right lower extremity edema which has been going on for many years, which she controls with water pills. Patient reports running out of his water pill one month ago. Review of Systems Except as stated in HPI: all other systems reviewed are Neg Past Family Social History Past Medical History Hypertension Past Surgical History Right knee tendon surgery many years ago. Reported Medications Reported Meds & Active Scripts Active Lisinopril 40 Mg Tab 40 Mg PO DAILY 30 Days Hydrochlorothiazide 12.5 Mg Cap 12.5 Mg PO DAILY 30 Days Allergies: Coded Allergies: penicillin G (Unverified Allergy, Severe, Dizziness, 04/30/17) Family History Mother and father from heart attacks in their 80s. Brother experienced [place] at age 56. Social History Patient reports being a nonsmoker. He reports occasional ALCOHOL use, however and asked to be specific he reports seven beers every other day. Denies withdrawals. He denies any illicit drugs. Physical Exam Vital Signs Vital Signs Date Time Temp Pulse Resp B/P (MAP) Pulse Ox O2 Delivery O2 Flow Rate FiO2 10/20/17 14:35 85 24 160/71 (100) 99 10/20/17 13:05 Room Air 10/20/17 11:30 98 Room Air 10/20/17 10:39 98.2 97 17 156/82 (106) 97 Physical Exam GENERAL: This is a well-nourished, well-developed patient, in no apparent distress. Alert and oriented 3. SKIN: No rashes, ecchymoses or lesions. Cool and dry. HEAD: Atraumatic. Normocephalic. No temporal or scalp tenderness. EYES: Pupils equal round and reactive. Extraocular motions intact. No scleral icterus. No injection or drainage. ENT: Nose without bleeding, purulent drainage or septal hematoma. Throat without erythema, tonsillar hypertrophy or exudate. Uvula midline. Airway patent. NECK: Trachea midline. No JVD or lymphadenopathy. Supple, nontender, no meningeal signs. CARDIOVASCULAR: Regular rate and rhythm without murmurs, gallops, or rubs. RESPIRATORY: Clear to auscultation. Breath sounds equal bilaterally. No wheezes , rales, or rhonchi. GASTROINTESTINAL: Abdomen soft, non-tender, nondistended. No hepato-splenomegaly , or palpable masses. No guarding. MUSCULOSKELETAL: Extremities without clubbing, cyanosis.No joint tenderness, effusion. No calf tenderness. Negative Homans sign bilaterally. 3+ right lower extremity edema with illicit edema. Patient does have what appears to be necrotic lesion on distal right toe. NEUROLOGICAL: Awake and alert. Cranial nerves II through XII intact. Motor and sensory grossly within normal limits. Five out of 5 muscle strength in all muscle groups. Normal speech. Laboratory Laboratory Tests Test 10/20/17 11:40 White Blood Count 23.1 Red Blood Count 4.42 Hemoglobin 14.1 Hematocrit 39.9 Mean Corpuscular Volume 90.2 Mean Corpuscular Hemoglobin 31.8 Mean Corpuscular Hemoglobin Concent 35.3 Red Cell Distribution Width 13.8 Platelet Count 274 Mean Platelet Volume 8.4 Neutrophils (%) (Auto) 85.3 Lymphocytes (%) (Auto) 7.0 Monocytes (%) (Auto) 7.4 Eosinophils (%) (Auto) 0.2 Basophils (%) (Auto) 0.1 Neutrophils # (Auto) 19.7 Lymphocytes # (Auto) 1.6 Monocytes # (Auto) 1.7 Eosinophils # (Auto) 0.0 Basophils # (Auto) 0.0 CBC Comment DIFF FINAL Differential Comment Prothrombin Time 12.9 Prothromb Time International Ratio 1.3 Activated Partial Thromboplast Time 29.3 Urine Color TEE Urine Turbidity CLEAR Urine pH 6.0 Urine Specific [place] 1.016 Urine Protein TRACE Urine Glucose (UA) NEG Urine Ketones NEG Urine Occult Blood NEG Urine Nitrite NEG Urine Bilirubin NEG Urine Urobilinogen GREATER THAN 12.0 Urine Leukocyte Esterase NEG Urine RBC 1 Urine WBC 1 Urine Squamous Epithelial Cells 1 Microscopic Urinalysis Comment CULT NOT INDICATED Blood Urea Nitrogen 10 Creatinine 0.77 Random Glucose 105 Total Protein 9.1 Albumin 2.3 Calcium Level 8.4 Magnesium Level 3.0 Alkaline Phosphatase 219 Aspartate Amino Transf (AST/SGOT) 82 Alanine Aminotransferase (ALT/SGPT) 56 Total Bilirubin 3.4 Direct Bilirubin 2.4 Sodium Level 134 Potassium Level 3.0 Chloride Level 95 Carbon Dioxide Level 31.2 Anion Gap 8 Estimat Glomerular Filtration Rate 124 Lactic Acid Level 1.4 Indirect Bilirubin 1.0 Total Creatine Kinase 172 Creatine Kinase MB 4.8 Troponin I LESS THAN 0.02 B-Type Natriuretic Peptide 56 Date/Time Source Procedure Growth Status 10/20/17 11:45 Blood Peripheral Aerobic Blood Culture Pending Received 10/20/17 11:45 Blood Peripheral Anaerobic Blood Culture Pending Received Result Diagram: 10/20/17 1140 10/20/17 1140 Imaging Last Impressions Lower Extremity Ultrasound 10/20/17 1130 Signed Impressions: Service Date/Time: Friday, October 20, 2017 11:47 - CONCLUSION: Negative for deep venous thrombosis. Inguinal lymph nodes. Andriy Ivory MD FACR Chest X-Ray 10/20/17 1130 Signed Impressions: Service Date/Time: Friday, October 20, 2017 11:58 - CONCLUSION: 1. Cardiomegaly. 2. No focal infiltrate or pulmonary vascular congestion. Jose F Albert MD Liver Ultrasound 10/20/17 0000 Signed Impressions: Service Date/Time: Friday, October 20, 2017 13:47 - CONCLUSION: 1. Cholelithiasis 2. Echogenic liver compatible with fatty infiltration or hepatocellular disease. 3. Splenomegaly Al Jhaveri MD Caprini VTE Risk Assessment Caprini VTE Risk Assessment: Mod/High Risk (score >= 2) Caprini Risk Assessment Model Point Value = 1 Point Value = 2 Point Value = 3 Point Value = 5 Age 41-60 Minor surgery BMI > 25 kg/m2 Swollen legs Varicose veins or History of unexplained or recurrent spontaneous Oral contraceptives or hormone replacement Sepsis (< 1 month) Serious lung disease, including pneumonia (< 1 month) Abnormal pulmonary function Acute myocardial infarction Congestive heart failure (< 1 month) History of inflammatory bowel disease Medical patient at bed rest Age 61-74 Arthroscopic surgery Major open surgery (> 45 min) Laparoscopic surgery (> 45 min) Malignancy Confined to bed (> 72 hours) Immobilizing plaster cast Central venous access Age >= 75 History of VTE Family history of VTE Factor V Leiden Prothrombin [id number] Lupus anticoagulant Anticardiolipin antibodies Elevated serum homocysteine Heparin-induced thrombocytopenia Other congenital or acquired thrombophilia Stroke (< 1 month) Elective arthroplasty Hip, pelvis, or leg fracture Acute spinal cord injury (< 1 month) Prophylaxis Regimen Total Risk Factor Score Risk Level Prophylaxis Regimen 0-1 Low Early ambulation 2 Moderate Order ONE of the following: *Sequential Compression Device (SCD) *Heparin 5000 units SQ BID 3-4 Higher Order ONE of the following medications: *Heparin 5000 units SQ TID *Enoxaparin/Lovenox 40 mg SQ daily (WT < 150 kg, CrCl > 30 mL/min) *Enoxaparin/Lovenox 30 mg SQ daily (WT < 150 kg, CrCl > 10-29 mL/min) *Enoxaparin/Lovenox 30 mg SQ BID (WT < 150 kg, CrCl > 30 mL/min) AND/OR *Sequential Compression Device (SCD) 5 or more Highest Order ONE of the following medications: *Heparin 5000 units SQ TID (Preferred with Epidurals) *Enoxaparin/Lovenox 40 mg SQ daily (WT < 150 kg, CrCl > 30 mL/min) *Enoxaparin/Lovenox 30 mg SQ daily (WT < 150 kg, CrCl > 10-29 mL/min) *Enoxaparin/Lovenox 30 mg SQ BID (WT < 150 kg, CrCl > 30 mL/min) AND *Sequential Compression Device (SCD) Assessment and Plan Assessment and Plan //Sepsis. //Right lower extremity cellulitis -Tachycardia, tachypnea, marked leukocytosis of 23.1. Right lower extremity cellulitis. -Lactate 1.4. -Start broad-spectrum antibiotics. Penicillin allergy noted. Follow-up blood cultures. //Transaminitis, hyperbilirubinemia -inr 1.3 -Patient without abdominal pain. -Likely secondary to chronic alcoholism. -Liver ultrasound with fatty infiltration. Likely alcoholic fatty liver disease. -CIWA. cont to monitor for signs of withdrawal //Chronic alcoholism. = Patient reports drinking several beers every other day. Denies withdrawal. //Hyponatremia. Sodium 134. Likely secondary to chronic alcoholism, liver disease. Continue to monitor. //Hypokalemia. Potassium 3.0. Replace. Continue to monitor. Discussed Condition With Patient, nurse, ED physician. Physician Certification 2 Midnight Certification Type: Admission for Inpatient Services Order for Inpatient Services The services are ordered in accordance with Medicare regulations or non- Medicare payer requirements, as applicable. In the case of services not specified as inpatient-only, they are appropriately provided as inpatient services in accordance with the 2-midnight benchmark. Estimated LOS (days): 3 days is the estimated time the patient will need to remain in the hospital, assuming treatment plan goals are met and no additional complications. Post-Hospital Plan: Not yet determined Martin Smyth MD Oct 20, 2017 15:23
--- NOTE | 2017-10-20 16:00 | RADRPT ---
EXAM DATE/TIME: 10/20/2017 15:43 [facility] COMPARISON: FOOT RIGHT COMPLETE ([id number]), November 22, 2015, 9:59. INDICATIONS : Right foot swelling. MEDICAL HISTORY : Hypertension. Hepatitis, end stage liver disease. SURGICAL HISTORY : None. ENCOUNTER: Initial ACUITY: 1 day PAIN SCORE: 0/10 LOCATION: Right foot FINDINGS: There are degenerative changes at the first metatarsal phalangeal joint. Bones are osteopenic. I do not see bone destruction to suggest soft myelitis. CONCLUSION: Osteopenia with degenerative changes. No osteomyelitis. Andriy Ivory MD FACR on October 20, 2017 at 15:56 Board Certified Radiologist. This report was verified electronically.
[2017-10-20] MEDS: VANCOMYCIN INJ 2,000 MG in SODIUM CHLORID 0.9% 500 ML INJ 500 ML IV SCH (17:44)
[2017-10-20] MEDS: AZTREONAM INJ 2,000 MG in SODIUM CHLORIDE 0.9% INJ 100 ML IV SCH (20:33)
[2017-10-20] MEDS: SODIUM CHLORIDE 0.9% FLUSH 10 ML FLUSH IV FLUSH SCH (20:34)
--- NOTE | 2017-10-20 21:18 | PD.CONS ---
History of Present Illness Service Foot and ankle surgery/podiatry Consult Requested By Reason for Consult Right lower extremity swelling and erythema Primary Care Physician No Primary Care Physician Diagnoses: History of Present Illness 62-year-old male with a past medical history presented to ED with worsening edema and erythema noted to the right lower extremity. 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 He has not been dressing the right lower extremity with anything. Patient states he has been soaking the foot and leg in [place] salt as well as the ocean. Patient denies any nausea vomiting fevers or chills. States he does not feel malaise. 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 Review of Systems Constitutional: DENIES: Fatigue, Fever Eyes: DENIES: Blurred vision Respiratory: DENIES: Cough, Wheezing Cardiovascular: DENIES: Chest pain Musculoskeletal: DENIES: Muscle aches Integumentary: COMPLAINS OF: Abnormal pigmentation Psychiatric: DENIES: Anxiety, Confusion Past Family Social History Allergies: Coded Allergies: penicillin G (Unverified Allergy, Severe, Dizziness, 04/30/17) Past Medical History Hypertension Active Ordered Medications Current Medications Medications (Trade) Dose Ordered Sig/Rachel Route Start Time Stop Time Status Last Admin Pharmacy Profile Note 0 ml @ 0 mls/hr UNSCH OTHER 10/20/17 13:30 Aztreonam 2000 mg/ Sodium Chloride 100 ml @ 200 mls/hr Q8H IV 10/20/17 20:00 10/20/17 20:33 (NS Flush) 2 ml UNSCH PRN IV FLUSH 10/20/17 13:30 (NS Flush) 2 ml BID IV FLUSH 10/20/17 21:00 (Zofran Inj) 4 mg Q6H PRN IVP 10/20/17 13:30 (Heparin Inj) 5,000 units Q12H SQ 10/20/17 14:00 10/20/17 14:53 (Narcan Inj) 0.4 mg UNSCH PRN IV PUSH 10/20/17 13:30 (Milk Of Magnesia Liq) 30 ml Q12H PRN PO 10/20/17 13:30 (Senokot) 17.2 mg Q12H PRN PO 10/20/17 13:30 (Dulcolax Supp) 10 mg DAILY PRN RECTAL 10/20/17 13:30 (Lactulose Liq) 30 ml DAILY PRN PO 10/20/17 13:30 Vancomycin HCl 2000 mg/Sodium Chloride 520 ml @ 250 mls/hr Q12H IV 10/20/17 18:00 10/20/17 17:44 Miscellaneous Information SPECIFIC LAB TO BE DRAWN:VANCOMYCIN TROUGH DATE TO... ONCE ONCE .XX 10/22/17 05:45 10/22/17 05:46 (Romazicon Inj) 0.2 mg Q1M PRN IV PUSH 10/20/17 15:15 (Ativan) 1 mg Q4H PRN PO 10/20/17 15:15 (Ativan Inj) 1 mg Q4H PRN IV PUSH 10/20/17 15:15 (Ativan) 2 mg Q2H PRN PO 10/20/17 15:15 (Ativan Inj) 2 mg Q2H PRN IV PUSH 10/20/17 15:15 (Ativan Inj) 2 mg Q1H PRN IV PUSH 10/20/17 15:15 (Ativan Inj) 2 mg Q15M PRN IV PUSH 10/20/17 15:15 Social History Patient works in the kitchen [employer] Physical Exam Vital Signs Vital Signs Date Time Temp Pulse Resp B/P (MAP) Pulse Ox O2 Delivery O2 Flow Rate FiO2 10/20/17 16:00 98.1 76 20 131/74 (93) 98 10/20/17 16:00 76 10/20/17 14:35 85 24 160/71 (100) 99 10/20/17 14:28 97.7 79 20 151/66 (94) 99 10/20/17 13:05 Room Air 10/20/17 11:30 98 Room Air 10/20/17 10:39 98.2 97 17 156/82 (106) 97 Physical Exam GENERAL: This is a well-nourished, well-developed patient, in no apparent distress. SKIN: Right lower extremity swelling and erythema HEAD: Atraumatic. Normocephalic. EYES: Pupils equal round and reactive. Extraocular motions intact. No scleral icterus. No injection or drainage. ENT: Airway patent. RESPIRATORY: Nonlabored breathing. . MUSCULOSKELETAL: Extremities without clubbing, cyanosis, or edema. No joint tenderness, effusion, or edema noted. No calf tenderness. Negative Homans sign bilaterally. NEUROLOGICAL: Awake and alert. Cranial nerves II through XII intact. Motor and sensory grossly within normal limits. Five out of 5 muscle strength in all muscle groups. Normal speech. Lower extremity physical exam: Vascular: Dorsalis pedis nonpalpable secondary to edema, posterior tibial nonpalpable secondary to edema. Capillary refill time within normal limits to digits 5 bilateral foot. Edema present right foot lower extremity with pitting noted. Neuro: Gross sensation intact to bilateral lower extremity. Pinpoint sensation decreased. No hyperalgesia noted to bilateral lower extremity Dermatology: Right lower extremity increased erythema noted to foot ankle and leg extending up to thigh. Second digit distal tip ulcer with serosanguineous drainage, probe to bone, undermining and tunneling circumferentially, no crepitus or fluctuance noted. Right anterior and posterior leg weeping ulcers noted with brawny induration and venous stasis dermatitis changes noted. Cellulitis noted extending up to proximal thigh. Induration noted to the lateral aspect of thigh. Blister noted to medial and posterior heel. Musculoskeletal: Tender to palpation to right lower extremity. Hammertoes noted to right foot 2 through 5. Decrease in medial longitudinal arch. Laboratory Laboratory Tests Test 10/20/17 11:40 White Blood Count 23.1 Red Blood Count 4.42 Hemoglobin 14.1 Hematocrit 39.9 Mean Corpuscular Volume 90.2 Mean Corpuscular Hemoglobin 31.8 Mean Corpuscular Hemoglobin Concent 35.3 Red Cell Distribution Width 13.8 Platelet Count 274 Mean Platelet Volume 8.4 Neutrophils (%) (Auto) 85.3 Lymphocytes (%) (Auto) 7.0 Monocytes (%) (Auto) 7.4 Eosinophils (%) (Auto) 0.2 Basophils (%) (Auto) 0.1 Neutrophils # (Auto) 19.7 Lymphocytes # (Auto) 1.6 Monocytes # (Auto) 1.7 Eosinophils # (Auto) 0.0 Basophils # (Auto) 0.0 CBC Comment DIFF FINAL Differential Comment Erythrocyte Sedimentation Rate 30 Prothrombin Time 12.9 Prothromb Time International Ratio 1.3 Activated Partial Thromboplast Time 29.3 Urine Color TEE Urine Turbidity CLEAR Urine pH 6.0 Urine Specific [place] 1.016 Urine Protein TRACE Urine Glucose (UA) NEG Urine Ketones NEG Urine Occult Blood NEG Urine Nitrite NEG Urine Bilirubin NEG Urine Urobilinogen GREATER THAN 12.0 Urine Leukocyte Esterase NEG Urine RBC 1 Urine WBC 1 Urine Squamous Epithelial Cells 1 Microscopic Urinalysis Comment CULT NOT INDICATED Blood Urea Nitrogen 10 Creatinine 0.77 Random Glucose 105 Total Protein 9.1 Albumin 2.3 Calcium Level 8.4 Magnesium Level 3.0 Alkaline Phosphatase 219 Aspartate Amino Transf (AST/SGOT) 82 Alanine Aminotransferase (ALT/SGPT) 56 Total Bilirubin 3.4 Direct Bilirubin 2.4 Sodium Level 134 Potassium Level 3.0 Chloride Level 95 Carbon Dioxide Level 31.2 Anion Gap 8 Estimat Glomerular Filtration Rate 124 Lactic Acid Level 1.4 Indirect Bilirubin 1.0 Total Creatine Kinase 172 Creatine Kinase MB 4.8 Troponin I LESS THAN 0.02 B-Type Natriuretic Peptide 56 Urine Opiates Screen NEG Urine Barbiturates Screen NEG Urine Amphetamines Screen NEG Urine Benzodiazepines Screen NEG Urine Cocaine Screen NEG Urine Cannabinoids Screen NEG Date/Time Source Procedure Growth Status 10/20/17 11:45 Blood Peripheral Aerobic Blood Culture Pending Received 10/20/17 11:45 Blood Peripheral Anaerobic Blood Culture Pending Received Result Diagram: 10/20/17 1140 10/20/17 1140 Imaging Last Impressions Lower Extremity Ultrasound 10/20/17 1130 Signed Impressions: Service Date/Time: Friday, October 20, 2017 11:47 - CONCLUSION: Negative for deep venous thrombosis. Inguinal lymph nodes. Andriy Ivory MD FACR Chest X-Ray 10/20/17 1130 Signed Impressions: Service Date/Time: Friday, October 20, 2017 11:58 - CONCLUSION: 1. Cardiomegaly. 2. No focal infiltrate or pulmonary vascular congestion. Jose F Albert MD Liver Ultrasound 10/20/17 0000 Signed Impressions: Service Date/Time: Friday, October 20, 2017 13:47 - CONCLUSION: 1. Cholelithiasis 2. Echogenic liver compatible with fatty infiltration or hepatocellular disease. 3. Splenomegaly Al Jhaveri MD Foot X-Ray 10/20/17 0000 Signed Impressions: Service Date/Time: Friday, October 20, 2017 15:43 - CONCLUSION: Osteopenia with degenerative changes. No osteomyelitis. Andriy Ivory MD FACR Assessment and Plan Assessment and Plan 62-year-old male with right lower extremity cellulitis, right second digit ulcer with probing bone Patient examined and evaluated X-rays reviewed MRI to right foot rule out osteomyelitis to right second digit Arterial Dopplers with [place] to right lower extremity Wound care consult to be placed by nursing to evaluate for possible wound to buttocks/sacrum as cellulitis extends up to proximal thigh; induration noted to lateral thigh recommend evaluation in a.m. by hospitalist Dressing to right lower extremity placed consisting of Aquacel, Optilock, Salvador , Roby bandaging for compression Continue daily dressing changes as above as cellulitis will need to be evaluated daily Will review MRI tomorrow and evaluate progression of cellulitis Monica Dwyer DPM Oct 20, 2017 21:18
--- NOTE | 2017-10-20 21:55 | HHI.PR ---
Subjective Remarks NOT SEEN Objective Vitals Vital Signs Date Time Temp Pulse Resp B/P (MAP) Pulse Ox O2 Delivery O2 Flow Rate FiO2 10/20/17 16:00 98.1 76 20 131/74 (93) 98 10/20/17 16:00 76 10/20/17 14:35 85 24 160/71 (100) 99 10/20/17 14:28 97.7 79 20 151/66 (94) 99 10/20/17 13:05 Room Air 10/20/17 11:30 98 Room Air 10/20/17 10:39 98.2 97 17 156/82 (106) 97 I/O 10/19/17 10/19/17 10/19/17 10/20/17 10/20/17 10/20/17 07:00 15:00 23:00 07:00 15:00 23:00 Intake Total 340 ml Balance 340 ml Intake Oral 240 ml IV Total 100 ml Result Diagram: 10/20/17 1140 10/20/17 1140 Imaging Last Impressions Lower Extremity Ultrasound 10/20/17 1130 Signed Impressions: Service Date/Time: Friday, October 20, 2017 11:47 - CONCLUSION: Negative for deep venous thrombosis. Inguinal lymph nodes. Andriy Ivory MD FACR Chest X-Ray 10/20/17 1130 Signed Impressions: Service Date/Time: Friday, October 20, 2017 11:58 - CONCLUSION: 1. Cardiomegaly. 2. No focal infiltrate or pulmonary vascular congestion. Jose F Albert MD Liver Ultrasound 10/20/17 0000 Signed Impressions: Service Date/Time: Friday, October 20, 2017 13:47 - CONCLUSION: 1. Cholelithiasis 2. Echogenic liver compatible with fatty infiltration or hepatocellular disease. 3. Splenomegaly Al Jhaveri MD Foot X-Ray 10/20/17 0000 Signed Impressions: Service Date/Time: Friday, October 20, 2017 15:43 - CONCLUSION: Osteopenia with degenerative changes. No osteomyelitis. Andriy Ivory MD FACR Objective Remarks GENERAL: This is a well-nourished, well-developed patient, in no apparent distress. Alert and oriented 3. SKIN: No rashes, ecchymoses or lesions. Cool and dry. HEAD: Atraumatic. Normocephalic. No temporal or scalp tenderness. EYES: Pupils equal round and reactive. Extraocular motions intact. No scleral icterus. No injection or drainage. ENT: Nose without bleeding, purulent drainage or septal hematoma. Throat without erythema, tonsillar hypertrophy or exudate. Uvula midline. Airway patent. NECK: Trachea midline. No JVD or lymphadenopathy. Supple, nontender, no meningeal signs. CARDIOVASCULAR: Regular rate and rhythm without murmurs, gallops, or rubs. RESPIRATORY: Clear to auscultation. Breath sounds equal bilaterally. No wheezes , rales, or rhonchi. GASTROINTESTINAL: Abdomen soft, non-tender, nondistended. No guarding. MUSCULOSKELETAL: Extremities without clubbing, cyanosis.No joint tenderness, effusion. No calf tenderness. Negative Homans sign bilaterally. 3+ right lower extremity edema with illicit edema. Patient does have what appears to be necrotic lesion on distal right toe. NEUROLOGICAL: Awake and alert. Cranial nerves II through XII intact. Motor and sensory grossly within normal limits. Five out of 5 muscle strength in all muscle groups. Normal speech. Procedures none A/P Problem List: (1) Sepsis affecting skin ICD Code: A41.9 - Sepsis, unspecified organism Status: Acute Assessment and Plan Sepsis.with right lower extremity cellulitis and ulcer right 2nd toe -Start broad-spectrum antibiotics. Penicillin allergy noted. Follow-up blood cultures. MRI r/o OM and [place] per Podiatry Transaminitis, hyperbilirubinemia -inr 1.3 -Patient without abdominal pain. -Likely secondary to chronic alcoholism. -Liver ultrasound with fatty infiltration. Likely alcoholic fatty liver disease. -CIWA. cont to monitor for signs of withdrawal Chronic alcoholism. - Patient reports drinking several beers every other day. Denies withdrawal.. Counselled Hyponatremia. Sodium 134. Likely secondary to chronic alcoholism, liver disease. Continue to monitor. Hypokalemia. Potassium 3.0. Replace. Continue to monitor. DVT proph with Lovejaix Roshan Serrano MD Oct 20, 2017 21:55
[2017-10-20] MEDS ORDERED: traMADol HCL 50 MG TAB PO ONE (22:30)
[2017-10-21] VITALS (9 sets, daily range): BP systolic 128–144; BP diastolic 67–77; PULSE 78–106; RESP 18–20; TEMP 97.3–98.4; O2SAT 91–96
[2017-10-21] MEDS: HEPARIN SODIUM - SQ 10,000 UNITS/ML VIAL SQ SCH ×2 (02:00→14:54)
[2017-10-21] MEDS: AZTREONAM INJ 2,000 MG in SODIUM CHLORIDE 0.9% INJ 100 ML IV SCH ×3 (04:25→21:18)
[2017-10-21] MEDS: VANCOMYCIN INJ 2,000 MG in SODIUM CHLORID 0.9% 500 ML INJ 500 ML IV SCH ×2 (05:32→18:23)
[2017-10-21] MEDS: SODIUM CHLORIDE 0.9% FLUSH 10 ML FLUSH IV FLUSH SCH ×2 (07:43→21:00)
[2017-10-21 08:57] LABS: AUTOMATED NEUTROPHIL # 13.4 TH/MM3 (1.8-7.7); BASOPHIL # 0.1 TH/MM3 (0-0.2); BASOPHIL % 0.3 % (0.0-2.0); EOSINOPHIL % 0.2 % (0.0-4.0); HEMATOCRIT 37.5 % (39.0-51.0); HEMOGLOBIN 12.9 GM/DL (13.0-17.0); LYMPH % 6.5 % (9.0-44.0); MEAN CELL VOLUME 91.9 FL (80.0-100.0); MEAN CORPUSCULAR HEMOGLOBIN 31.6 PG (27.0-34.0); MEAN CORPUSCULAR HGB CONC 34.3 % (32.0-36.0); MEAN PLATELET VOLUME 8.2 FL (7.0-11.0); MONO % 6.8 % (0.0-8.0); MONOCYTE # 1.1 TH/MM3 (0-0.9); NEUT % 86.2 % (16.0-70.0); PLATELET COUNT 260 TH/MM3 (150-450); RED BLOOD COUNT 4.08 MIL/MM3 (4.50-5.90); RED CELL DISTRIBUTION WIDTH 14.3 % (11.6-17.2); WHITE BLOOD COUNT 15.6 TH/MM3 (4.0-11.0)
[2017-10-21] MEDS: MULTIVITAMINS/MINERALS THERAPEUTIC TAB PO SCH (08:58)
[2017-10-21] MEDS: FOLIC ACID 1 MG TAB PO SCH (08:58)
[2017-10-21] MEDS: THIAMINE HCL 100 MG TAB PO SCH (08:58)
[2017-10-21 09:17] LABS: ALBUMIN 1.8 GM/DL (3.4-5.0); AST (GOT) 57 U/L (15-37); BLOOD UREA NITROGEN 7 MG/DL (7-18); CALCIUM 8.1 MG/DL (8.5-10.1); CHLORIDE 97 MEQ/L (98-107); CREATININE 0.69 MG/DL (0.60-1.30); GLOMERULAR FILTRATION RATE 141 ML/MIN (>89); GLUCOSE,RANDOM 104 MG/DL (74-106); SODIUM (NA) 134 MEQ/L (136-145)
[2017-10-21 09:21] LABS: ALKALINE PHOSPHATASE 180 U/L (45-117); ALT (GPT) 42 U/L (12-78); TOTAL BILIRUBIN ADULT 2.6 MG/DL (0.2-1.0); TOTAL PROTEIN 7.8 GM/DL (6.4-8.2)
[2017-10-21] MEDS ORDERED: traMADol HCL 50 MG TAB PO PRN (09:30)
[2017-10-21] MEDS ORDERED: MORPHINE SULFATE 2 MG/ML INJ IV PUSH PRN (09:30)
[2017-10-21] MEDS ORDERED: GADODIAMIDE PF 287 MG/ML 5 ML VIAL (for RAD MRI) IVCONTRAST ONE (10:54)
--- NOTE | 2017-10-21 11:07 | RADRPT ---
EXAM DATE/TIME: 10/21/2017 09:21 CORRECTION Corrected on: October 21, 2017; [facility] COMPARISON: FOOT RIGHT COMPLETE ([id number]), October 20, 2017, 15:43. INDICATIONS : Osteomyelitis. Ulcer on 2nd digit. CONTRAST: 25 cc Omniscan (gadodiamide) IV MEDICAL HISTORY : Hypertension. SURGICAL HISTORY : Tonsillectomy. ENCOUNTER: Subsequent ACUITY: 2 weeks PAIN SCORE: 0/10 LOCATION: Right foot. TECHNIQUE: Multiplanar, multisequence MRI examination was performed without contrast and after the intravenous a dministration of gadolinium. FINDINGS: There is soft tissue swelling involving the dorsum of the right forefoot suggestive of diffuse cellul itis. There is also swelling of the tip of the second digit. Some edema is noted involving the second distal phalanx although examination of this area of the foot is somewhat limited due to the position of the phalanges. If there is strong clinical concern for osteomyelitis involving the second distal phalanx three-phase bone scan or white blood cell scan may be useful for further evaluation. No fract ure or dislocation is noted. No enhancing soft tissue collection is noted to suggest abscess. Note is also made of focal edema involving the peroneal tubercle of the calcaneus as well as increase d signal within the peroneus longus tendon suggestive of tendinopathy/tenosynovitis. CONCLUSION: 1. Soft tissue swelling involving the dorsum of the right forefoot suggestive of diffuse cellulitis. There is also swelling of the tip of the second digit. Some edema is noted involving the second dista l phalanx although examination of this area of the foot is somewhat limited due to the position of th e phalanges. If there is strong clinical concern for osteomyelitis involving the second distal phalan x three-phase bone scan or white blood cell scan may be useful for further evaluation. 2. Focal edema involving the peroneal tubercle of the calcaneus as well as increased signal within th e peroneus longus tendon suggestive of tendinopathy/tenosynovitis. 1. Jose F Albert MD on October 21, 2017 at 10:53 Board Certified Radiologist. This report was verified electronically. Jose F Albert MD on October 21, 2017 at 13:14 Board Certified Radiologist. This report was verified electronically.
[2017-10-21] MEDS: traMADol HCL 50 MG TAB PO PRN ×2 (11:44→20:59)
--- NOTE | 2017-10-21 15:24 | HHI.PR ---
Subjective Remarks Follow-up right lower extremity cellulitis. Complaining of pain relieved with tramadol. Admits to alcohol use patient has been counseled. Discussed with RN Objective Vitals Vital Signs Date Time Temp Pulse Resp B/P (MAP) Pulse Ox O2 Delivery O2 Flow Rate FiO2 10/21/17 08:00 97.8 91 20 144/76 (98) 92 10/21/17 04:50 98.4 82 18 141/77 (98) 96 10/21/17 04:00 80 10/21/17 04:00 Room Air 10/21/17 00:00 Room Air 10/21/17 00:00 81 10/20/17 23:49 98.2 81 18 157/78 (104) 96 10/20/17 21:05 99.1 83 18 123/63 (83) 97 10/20/17 20:00 79 10/20/17 20:00 Room Air 10/20/17 16:00 98.1 76 20 131/74 (93) 98 10/20/17 16:00 76 I/O 10/20/17 10/20/17 10/20/17 10/21/17 10/21/17 10/21/17 07:00 15:00 23:00 07:00 15:00 23:00 Intake Total 440 ml 340 ml Output Total 2025 ml Balance 440 ml -1685 ml Intake Oral 240 ml 240 ml IV Total 200 ml 100 ml Output Urine Total 2025 ml # Bowel Movements 0 Result Diagram: 10/21/17 0818 10/21/17 0818 Imaging Last Impressions Foot MRI 10/21/17 0000 Signed Impressions: Service Date/Time: Saturday, October 21, 2017 09:21 - CONCLUSION: 1. Soft tissue swelling involving the dorsum of the right forefoot suggestive of diffuse cellulitis. There is also swelling of the tip of the second digit. Some edema is noted involving the second distal phalanx although examination of this area of the foot is somewhat limited due to the position of the phalanges. If there is strong clinical concern for osteomyelitis involving the second distal phalanx three-phase bone scan or white blood cell scan may be useful for further evaluation. 2. Focal edema involving the peroneal tubercle of the calcaneus as well as increased signal within the peroneus longus tendon suggestive of tendinopathy/tenosynovitis. 1. Jose F Albert MD Lower Extremity Ultrasound 10/20/17 1130 Signed Impressions: Service Date/Time: Friday, October 20, 2017 11:47 - CONCLUSION: Negative for deep venous thrombosis. Inguinal lymph nodes. Andriy Ivory MD FACR Chest X-Ray 10/20/17 1130 Signed Impressions: Service Date/Time: Friday, October 20, 2017 11:58 - CONCLUSION: 1. Cardiomegaly. 2. No focal infiltrate or pulmonary vascular congestion. Jose F Albert MD Liver Ultrasound 10/20/17 0000 Signed Impressions: Service Date/Time: Friday, October 20, 2017 13:47 - CONCLUSION: 1. Cholelithiasis 2. Echogenic liver compatible with fatty infiltration or hepatocellular disease. 3. Splenomegaly Al Jhaveri MD Foot X-Ray 10/20/17 0000 Signed Impressions: Service Date/Time: Friday, October 20, 2017 15:43 - CONCLUSION: Osteopenia with degenerative changes. No osteomyelitis. Andriy Ivory MD FACR Objective Remarks GENERAL: This is a well-nourished, well-developed patient, in no apparent distress. Alert and oriented 3. SKIN: No rashes, ecchymoses or lesions. Cool and dry. CARDIOVASCULAR: Regular rate and rhythm without murmurs, gallops, or rubs. RESPIRATORY: Clear to auscultation. Breath sounds equal bilaterally. No wheezes , rales, or rhonchi. GASTROINTESTINAL: Abdomen soft, non-tender, nondistended. No guarding. MUSCULOSKELETAL: Extremities without clubbing, cyanosis.No joint tenderness, effusion. No calf tenderness. Negative Homans sign bilaterally. RLE with dry dressing NEUROLOGICAL: Awake and alert. Cranial nerves II through XII intact. Motor and sensory grossly within normal limits. Five out of 5 muscle strength in all muscle groups. Normal speech. Procedures none A/P Problem List: (1) Sepsis affecting skin ICD Code: A41.9 - Sepsis, unspecified organism Status: Acute Assessment and Plan Sepsis.with right lower extremity cellulitis and ulcer right 2nd toe -Continue IV vancomycin and aztreonam. Penicillin allergy noted. Follow-up blood cultures. MRI noted will order a 3 phase bone scan to evaluate for osteomyelitis and follow-up AFRICA . Wound care per Podiatry Transaminitis, hyperbilirubinemia -inr 1.3 -Patient without abdominal pain. -Likely secondary to chronic alcoholism. -Liver ultrasound with fatty infiltration. Likely alcoholic fatty liver disease. -CIWA. cont to monitor for signs of withdrawal. Chronic alcoholism. - Patient reports drinking several beers every other day. Denies withdrawal. Counselled Hyponatremia. Sodium 134. Likely secondary to chronic alcoholism, liver disease. Continue to monitor. Hypokalemia. Improving replace as needed. Continue to monitor. DVT proph with Lovenox Roshan Serrano MD Oct 21, 2017 15:24
--- NOTE | 2017-10-21 15:28 | PD.WCN.NOT ---
Wound Consult Description: Wound care consult ordered by Dr.Popelka VERDUZCO for Right Hip Communicated with: Miroslava H[facility] , Recommendation: 1) Encourage patient to reposition every 2 hours and keep lower extremities elevated 2) Cleanse Right hip/thigh with warm antibacterial soap and water rinse and keep dry 3) Follow up with out patient wound center or reconsult if area worsens Additional Information: Patient was seen today on [facility] by ticket writer for Right hip.Patient alert and oriented x3 in bed with several family members present.Permission given to speak in front of guest.Dressing to R lower extremity dry intact.Erythema noted to proximal knee Sewer Pipe Layer Helper marked patient to confirm effected area.Right thigh/hip has soft boggy induration with some warmth felt.No active drainage noted though areas of moisture/denuded skin noted.Patient states thigh is feeling a lot better and not causing him any pain/discomfort at this time.Encourage patient to cleanse area with warm soap and water and pat dry.Encouraged patient to elevate lower extremities.Patient is currently under the care of Dr.Popelka VERDUZCO for wound care order for below knee. Livier Billy [facility] Oct 21, 2017 15:28
[2017-10-21] MEDS ORDERED: POTASSIUM CHLORIDE 10 MEQ CONTROLLED RELEASE TAB PO ONE (15:30)
--- NOTE | 2017-10-21 15:45 | RADRPT ---
EXAM DATE/TIME: 10/21/2017 00:00 [facility] COMPARISON: No previous studies available for comparison. INDICATIONS : Cellulitis, Sepsis TECHNIQUE: Five-station segmental examination of the lower extremities was performed. Pulsed-cuff waveform tracings and pressures were recorded. Ankle-brachial indices and toe-brachial indices were calculated. PRESSURES (mmHg): Brachial (arm): Right IV SITE Left 95 Lower Thigh: Right 192 Left CNO Calf: Right 118 Left 172 Ankle: Right 105 Left 155 Toe: Right 0 Left 72 AFRIAC: Right 1.11 Left 1.63 TBI: Right 0.00 Left 0.76 PULSED CUFF WAVEFORMS: Demonstrate normal amplitude bilaterally. There is significantly decreased amplitude in the right toe . CONCLUSION: 1. Significant gradient across the distal right thigh which may reflect distal SFA/popliteal artery d isease. 2. There are also dampened waveforms in the right toe with unobtainable right toe pressures. This is consistent with small vessel disease on the right. Iglesia Moctezuma MD on October 21, 2017 at 15:39 Board Certified Radiologist. This report was verified electronically.
--- NOTE | 2017-10-21 16:08 | EKG ---
Date Performed: 10/20/2017 Time Performed: 13:29:45 PTAGE: 62 years EKG: Sinus rhythm MARKED LEFT AXIS DEVIATION MODERATE VOLTAGE CRITERIA FOR LVH, CONSIDER NORMAL VARIANT POSSIBLE LATER AL MYOCARDIAL INFARCTION ABNORMAL ECG Since the prior tracing, there has been no significant change PREVIOUS TRACING : 07/13/2001 10.21 DOCTOR: Jamal Bailey Interpretating Date/Time 10/21/2017 16:06:42
--- NOTE | 2017-10-21 20:35 | HHI.PR ---
Subjective Remarks Patient seen bedside this evening. States after dressing was applied to right lower extremity he experienced intense burning. States he was unable to sleep last night. Reports decreasing pain. Denies any nausea vomiting fevers or chills. Objective Vital Signs Date Time Temp Pulse Resp B/P (MAP) Pulse Ox O2 Delivery O2 Flow Rate FiO2 10/21/17 16:00 98.2 92 20 128/72 (90) 10/21/17 16:00 98.2 92 20 128/72 (90) 93 10/21/17 16:00 93 10/21/17 16:00 84 10/21/17 12:00 79 10/21/17 12:00 98.4 82 20 138/67 (90) 91 10/21/17 08:00 97.8 91 20 144/76 (98) 92 10/21/17 07:55 78 10/21/17 04:50 98.4 82 18 141/77 (98) 96 10/21/17 04:00 80 10/21/17 04:00 Room Air 10/21/17 00:00 Room Air 10/21/17 00:00 81 10/20/17 23:49 98.2 81 18 157/78 (104) 96 10/20/17 21:05 99.1 83 18 123/63 (83) 97 I/O 10/20/17 10/20/17 10/20/17 10/21/17 10/21/17 10/21/17 07:00 15:00 23:00 07:00 15:00 23:00 Intake Total 440 ml 340 ml 480 ml Output Total 2025 ml 525 ml Balance 440 ml -1685 ml -45 ml Intake Oral 240 ml 240 ml 480 ml IV Total 200 ml 100 ml Output Urine Total 2025 ml 525 ml # Bowel Movements 0 0 Result Diagram: 10/21/17 0818 10/21/17 0818 Imaging Last Impressions Foot MRI 10/21/17 0000 Signed Impressions: Service Date/Time: Saturday, October 21, 2017 09:21 - CONCLUSION: 1. Soft tissue swelling involving the dorsum of the right forefoot suggestive of diffuse cellulitis. There is also swelling of the tip of the second digit. Some edema is noted involving the second distal phalanx although examination of this area of the foot is somewhat limited due to the position of the phalanges. If there is strong clinical concern for osteomyelitis involving the second distal phalanx three-phase bone scan or white blood cell scan may be useful for further evaluation. 2. Focal edema involving the peroneal tubercle of the calcaneus as well as increased signal within the peroneus longus tendon suggestive of tendinopathy/tenosynovitis. 1. Jose F Albert MD Lower Extremity Ultrasound 10/20/17 1130 Signed Impressions: Service Date/Time: Friday, October 20, 2017 11:47 - CONCLUSION: Negative for deep venous thrombosis. Inguinal lymph nodes. Andriy Ivory MD FACR Chest X-Ray 10/20/17 1130 Signed Impressions: Service Date/Time: Friday, October 20, 2017 11:58 - CONCLUSION: 1. Cardiomegaly. 2. No focal infiltrate or pulmonary vascular congestion. Jose F Albert MD Liver Ultrasound 10/20/17 0000 Signed Impressions: Service Date/Time: Friday, October 20, 2017 13:47 - CONCLUSION: 1. Cholelithiasis 2. Echogenic liver compatible with fatty infiltration or hepatocellular disease. 3. Splenomegaly Al Jhaveri MD Foot X-Ray 10/20/17 0000 Signed Impressions: Service Date/Time: Friday, October 20, 2017 15:43 - CONCLUSION: Osteopenia with degenerative changes. No osteomyelitis. Andriy Ivory MD FACR Objective Remarks Lower extremity physical exam: Vascular: Dorsalis pedis nonpalpable secondary to edema, posterior tibial nonpalpable secondary to edema. Capillary refill time within normal limits to digits 5 bilateral foot. Edema present right foot lower extremity with pitting noted improvement noted in edema. Neuro: Gross sensation intact to bilateral lower extremity. Pinpoint sensation decreased. No hyperalgesia noted to bilateral lower extremity Dermatology: Right lower extremity increased erythema noted to foot ankle and leg extending up to thigh. Second digit distal tip ulcer with serosanguineous drainage, probe to bone, undermining and tunneling circumferentially, no crepitus or fluctuance noted. Right anterior and posterior leg weeping ulcers noted with brawny induration and venous stasis dermatitis changes noted. Cellulitis noted extending up to proximal thigh. Induration noted to the lateral aspect of thigh. Blister noted to medial and posterior heel. Musculoskeletal: Tender to palpation to right lower extremity. Hammertoes noted to right foot 2 through 5. Decrease in medial longitudinal arch. Medications and IVs Current Medications Medications (Trade) Dose Ordered Sig/Rachel Route Start Time Stop Time Status Last Admin Pharmacy Profile Note 0 ml @ 0 mls/hr UNSCH OTHER 10/20/17 13:30 Aztreonam 2000 mg/ Sodium Chloride 100 ml @ 200 mls/hr Q8H IV 10/20/17 20:00 10/21/17 11:46 (NS Flush) 2 ml UNSCH PRN IV FLUSH 10/20/17 13:30 (NS Flush) 2 ml BID IV FLUSH 10/20/17 21:00 10/21/17 07:43 (Zofran Inj) 4 mg Q6H PRN IVP 10/20/17 13:30 (Heparin Inj) 5,000 units Q12H SQ 10/20/17 14:00 10/21/17 14:54 (Narcan Inj) 0.4 mg UNSCH PRN IV PUSH 10/20/17 13:30 (Milk Of Magnesia Liq) 30 ml Q12H PRN PO 10/20/17 13:30 (Senokot) 17.2 mg Q12H PRN PO 10/20/17 13:30 (Dulcolax Supp) 10 mg DAILY PRN RECTAL 10/20/17 13:30 (Lactulose Liq) 30 ml DAILY PRN PO 10/20/17 13:30 Vancomycin HCl 2000 mg/Sodium Chloride 520 ml @ 250 mls/hr Q12H IV 10/20/17 18:00 10/21/17 18:23 Miscellaneous Information SPECIFIC LAB TO BE DRAWN:VANCOMYCIN TROUGH DATE TO... ONCE ONCE .XX 10/22/17 05:45 10/22/17 05:46 (Romazicon Inj) 0.2 mg Q1M PRN IV PUSH 10/20/17 15:15 (Ativan) 1 mg Q4H PRN PO 10/20/17 15:15 (Ativan Inj) 1 mg Q4H PRN IV PUSH 10/20/17 15:15 (Ativan) 2 mg Q2H PRN PO 10/20/17 15:15 (Ativan Inj) 2 mg Q2H PRN IV PUSH 10/20/17 15:15 (Ativan Inj) 2 mg Q1H PRN IV PUSH 10/20/17 15:15 (Ativan Inj) 2 mg Q15M PRN IV PUSH 10/20/17 15:15 (Folate) 1 mg DAILY PO 10/21/17 09:00 10/26/17 08:59 10/21/17 08:58 (Vitamin B1) 100 mg DAILY PO 10/21/17 09:00 10/21/17 08:58 (Theragran M Tab) 1 tab DAILY PO 10/21/17 09:00 10/26/17 08:59 10/21/17 08:58 (Morphine Inj) 1 mg Q3H PRN IV PUSH 10/21/17 09:30 (Ultram) 50 mg Q4H PRN PO 10/21/17 09:30 (Ultram) 100 mg Q4H PRN PO 10/21/17 09:30 10/21/17 11:44 Assessment and Plan Assessment and Plan 62-year-old male with right lower extremity cellulitis, right second digit ulcer with probing bone Patient examined and evaluated MRI reviewed will await further imaging to rule out osteomyelitis Arterial Dopplers with AFRICA to right lower extremity reviewed right LE AFRICA 0.76 Recommend vascular consult Dressing to right lower extremity placed consisting of Optilock, Salvador, Roby bandaging for compression Will place wound care orders for patient Improvement noted to right lower extremity edema and erythema Will continue to follow patient Monica Dwyer DPM Oct 21, 2017 20:35
[2017-10-22] VITALS: BP 140/86; PULSE 66; PULSE 68; RESP 18; TEMP 98.2; O2SAT 96
[2017-10-22] MEDS: HEPARIN SODIUM - SQ 10,000 UNITS/ML VIAL SQ SCH ×2 (03:06→13:58)
[2017-10-22 04:00] VITALS: BP 140/90; PULSE 70; PULSE 72; RESP 18; TEMP 98.1; O2SAT 97
[2017-10-22] MEDS: AZTREONAM INJ 2,000 MG in SODIUM CHLORIDE 0.9% INJ 100 ML IV SCH ×3 (05:06→20:41)
[2017-10-22] MEDS ORDERED: PHARMACY ORDERED LAB ONE (05:45)
[2017-10-22] MEDS: VANCOMYCIN INJ 2,000 MG in SODIUM CHLORID 0.9% 500 ML INJ 500 ML IV SCH (06:00)
[2017-10-22] MEDS: SODIUM CHLORIDE 0.9% FLUSH 10 ML FLUSH IV FLUSH SCH ×2 (06:54→20:41)
[2017-10-22 07:22] LABS: BICARBONATE 30.9 MEQ/L (21.0-32.0); CALCIUM 7.7 MG/DL (8.5-10.1); CREATININE 0.66 MG/DL (0.60-1.30); MAGNESIUM 2.7 MG/DL (1.5-2.5)
[2017-10-22 08:00] VITALS: BP 137/74; PULSE 74; RESP 18; TEMP 97.6; O2SAT 97
[2017-10-22] MEDS: MULTIVITAMINS/MINERALS THERAPEUTIC TAB PO SCH (08:25)
[2017-10-22] MEDS: THIAMINE HCL 100 MG TAB PO SCH (08:25)
[2017-10-22] MEDS: FOLIC ACID 1 MG TAB PO SCH (08:25)
[2017-10-22] MEDS ORDERED: POTASSIUM CHLORIDE 10 MEQ CONTROLLED RELEASE TAB PO ONE (09:30)
[2017-10-22 12:00] VITALS: BP 139/71; PULSE 82; RESP 18; TEMP 98.2; O2SAT 99
[2017-10-22] MEDS: traMADol HCL 50 MG TAB PO PRN (12:12)
--- NOTE | 2017-10-22 15:45 | HHI.PR ---
Subjective Remarks Follow-up right lower extremity cellulitis. Patient reports that induration is worse on the right lateral thigh. Discussed with nursing Objective Vitals Vital Signs Date Time Temp Pulse Resp B/P (MAP) Pulse Ox O2 Delivery O2 Flow Rate FiO2 10/22/17 12:00 98.2 82 18 139/71 (93) 99 10/22/17 10:08 Room Air 10/22/17 08:00 97.6 74 18 137/74 (95) 97 10/22/17 04:00 98.1 72 18 140/90 (107) 97 10/22/17 04:00 70 10/22/17 04:00 Room Air 10/22/17 00:00 98.2 68 18 140/86 (104) 96 10/22/17 00:00 66 10/22/17 00:00 Room Air 10/21/17 20:22 97.3 78 19 131/73 (92) 96 10/21/17 20:00 106 10/21/17 20:00 Room Air 10/21/17 16:00 98.2 92 20 128/72 (90) 10/21/17 16:00 98.2 92 20 128/72 (90) 93 10/21/17 16:00 93 10/21/17 16:00 84 I/O 10/21/17 10/21/17 10/21/17 10/22/17 10/22/17 10/22/17 06:59 14:59 22:59 06:59 14:59 22:59 Intake Total 340 ml 580 ml 100 ml 100 ml Output Total 2025 ml 525 ml Balance -1685 ml 55 ml 100 ml 100 ml Intake Oral 240 ml 480 ml IV Total 100 ml 100 ml 100 ml 100 ml Output Urine Total 2025 ml 525 ml # Bowel Movements 0 1 Result Diagram: 10/21/17 0818 10/22/17 0557 Imaging Last Impressions Bone Scan Nuclear Medicine 10/22/17 0000 Signed Impressions: Service Date/Time: Sunday, October 22, 2017 09:07 - CONCLUSION: Abnormal scan appearance as above, however low suspicion of osteomyelitis based upon findings as discussed. Phil Dao MD Foot MRI 10/21/17 0000 Signed Impressions: Service Date/Time: Saturday, October 21, 2017 09:21 - CONCLUSION: 1. Soft tissue swelling involving the dorsum of the right forefoot suggestive of diffuse cellulitis. There is also swelling of the tip of the second digit. Some edema is noted involving the second distal phalanx although examination of this area of the foot is somewhat limited due to the position of the phalanges. If there is strong clinical concern for osteomyelitis involving the second distal phalanx three-phase bone scan or white blood cell scan may be useful for further evaluation. 2. Focal edema involving the peroneal tubercle of the calcaneus as well as increased signal within the peroneus longus tendon suggestive of tendinopathy/tenosynovitis. 1. Jose F Albert MD Lower Extremity Ultrasound 10/20/17 1130 Signed Impressions: Service Date/Time: Friday, October 20, 2017 11:47 - CONCLUSION: Negative for deep venous thrombosis. Inguinal lymph nodes. Andriy Ivory MD FACR Chest X-Ray 10/20/17 1130 Signed Impressions: Service Date/Time: Friday, October 20, 2017 11:58 - CONCLUSION: 1. Cardiomegaly. 2. No focal infiltrate or pulmonary vascular congestion. Jose F Albert MD Liver Ultrasound 10/20/17 0000 Signed Impressions: Service Date/Time: Friday, October 20, 2017 13:47 - CONCLUSION: 1. Cholelithiasis 2. Echogenic liver compatible with fatty infiltration or hepatocellular disease. 3. Splenomegaly Al Jhaveri MD Foot X-Ray 10/20/17 0000 Signed Impressions: Service Date/Time: Friday, October 20, 2017 15:43 - CONCLUSION: Osteopenia with degenerative changes. No osteomyelitis. Andriy Ivory MD FACR Objective Remarks GENERAL: This is a well-nourished, well-developed patient, in no apparent distress. Alert and oriented 3. SKIN: No rashes, ecchymoses or lesions. Cool and dry. CARDIOVASCULAR: Regular rate and rhythm without murmurs, gallops, or rubs. RESPIRATORY: Clear to auscultation. Breath sounds equal bilaterally. No wheezes , rales, or rhonchi. GASTROINTESTINAL: Abdomen soft, non-tender, nondistended. No guarding. MUSCULOSKELETAL: Extremities without clubbing, cyanosis.No joint tenderness, effusion. No calf tenderness. Negative Homans sign bilaterally. Cellulitis extending to right lateral thigh today with increased erythema, warmth and induration. Right leg with dry dressing NEUROLOGICAL: Awake and alert. Cranial nerves II through XII intact. Motor and sensory grossly within normal limits. Five out of 5 muscle strength in all muscle groups. Normal speech. Procedures none A/P Problem List: (1) Sepsis affecting skin ICD Code: A41.9 - Sepsis, unspecified organism Status: Acute Assessment and Plan Sepsis.with right lower extremity cellulitis and ulcer right 2nd toe -Continue IV vancomycin and aztreonam. Penicillin allergy noted. Follow-up blood cultures negative to date. MRI noted. Bone scan with low suspicion for osteomyelitis. Wound care per Podiatry. Consult infectious disease Abnormal AFRICA. Vascular surgery consulted ordered CTA and carotid ultrasound Transaminitis, hyperbilirubinemia -inr 1.3 -Patient without abdominal pain. -Likely secondary to chronic alcoholism. -Liver ultrasound with fatty infiltration. Likely alcoholic fatty liver disease. -CIWA. cont to monitor for signs of withdrawal. Chronic alcoholism. - Patient reports drinking several beers every other day. Denies withdrawal. Counselled Hyponatremia. Sodium 134. Likely secondary to chronic alcoholism, liver disease. Continue to monitor. Hypokalemia. Improving replace as needed. Continue to monitor. DVT proph with heparin Roshan Serrano MD Oct 22, 2017 15:45
[2017-10-22 16:11] VITALS: BP 129/59; PULSE 77; RESP 18; TEMP 98.4; O2SAT 99
--- NOTE | 2017-10-22 17:11 | PD.WCN.NOT ---
Wound Consult Description: Wound care consult ordered by Dr.Popelka VERDUZCO for Unna boot triple layer compression Communicated with: RN Shannon Talbot essex and Doctor Yuliya for orders Recommendation: Please leave Rico boot (Unna boot dressing with triple layer compression) in place to RLE and campus administrator will change as directed by Doctor Dwyer Podiatry. Additional Information: Patient seen on for Unna boot dressing with triple layer compression per consult from Doctor Yuliya Podiatry to R lower extremity.Removed dressing in place to RLE placed by Doctor Dwyer to reveal open wounds to R anterior barrios, R dorsal foot, and R posterior calf. Wounds appear partial thickness and slightly moist with 100% red non granulation tissue and jagged wound margins. Wound to R anterior barrios measures ~30cm x ~21 cm x ~<0.1cm. Wound to R posterior calf measures ~8cm x ~5cm x~<0.1cm . Wound to R dorsal foot measures ~ 8cm x ~5cm x ~<0.1. Wounds have scant sero-sanguinous drainage without odor.Cleansed wounds wound cleanser and patted dry. Applied Optifoam AG gentle over open wounds. Applied Unna boot from behind toes to 2 finger widths below the bend of the knee , followed by rolled gauze. Secured with 4 inch Coban. Orin Lyon CRN Oct 22, 2017 17:11
--- NOTE | 2017-10-22 17:27 | RADRPT ---
EXAM DATE/TIME: 10/22/2017 09:07 [facility] COMPARISON: FOOT RIGHT COMPLETE ([id number]), October 20, 2017, 15:43. MRI FOOT RIGHT W & W/O CONTRAST, October, 9:21. PRIOR BONE SCANS: No correlative bone scan available for comparison. INDICATIONS : Cellulitis right second distal phalanx on right foot. DOSE: 31.2 mCi Tc99m MDP IV IMAGING: SPECT/CT imaging with fusion was performed. RADIATION DOSE: 2.66 CTDIvol (mGy) MEDICAL HISTORY : Hypertension. SURGICAL HISTORY : None. ENCOUNTER: Initial ACUITY: 1 day PAIN SCALE: 0/10 LOCATION: Right Foot. TECHNIQUE: Bone scan was performed in sagittal, axial and coronal planes. Attenuation correction was performed with computed tomography and both the attenuation correction and non-attenuation corrected data sets were reviewed. FINDINGS: There is prominently increased relative radiotracer delivery to the right ankle and foot by compariso n to the left and prominently asymmetric increased blood pool activity also noted. On delayed scannin g, there are several foci of significantly increased bony uptake of MDP tracer including in the poste rior base of the calcaneus, in the lateral calcaneus adjacent to the location of an os peroneum and i n the region of the fourth metatarsal base at the tarsometatarsal joint level. There is very minimall y increased delayed tracer uptake correlating with the distal aspect of the first and second toes of the right foot. Correlating these findings with the recent MRI, none of this is particularly suspicious for osteomyel itis, however a tagged white blood cell scan would be suggested for correlation if there is persisten t clinical concern. CONCLUSION: Abnormal scan appearance as above, however low suspicion of osteomyelitis based upon findings as disc ussed. Phil Dao MD on October 22, 2017 at 17:02 Board Certified Radiologist. This report was verified electronically.
[2017-10-22] MEDS: VANCOMYCIN INJ 2,500 MG in SODIUM CHLORID 0.9% 500 ML INJ 500 ML IV SCH (17:47)
--- NOTE | 2017-10-22 19:52 | PD.CAR.PN ---
CVT Progress Note Subjective/Hospital Course: Referral received Full consult TF Bucky J Objective: Vital Signs Date Time Temp Pulse Resp B/P (MAP) Pulse Ox O2 Delivery O2 Flow Rate FiO2 10/22/17 16:11 98.4 77 18 129/59 (82) 99 10/22/17 12:00 98.2 82 18 139/71 (93) 99 10/22/17 10:08 Room Air 10/22/17 08:00 97.6 74 18 137/74 (95) 97 10/22/17 04:00 98.1 72 18 140/90 (107) 97 10/22/17 04:00 70 10/22/17 04:00 Room Air 10/22/17 00:00 98.2 68 18 140/86 (104) 96 10/22/17 00:00 66 10/22/17 00:00 Room Air 10/21/17 20:22 97.3 78 19 131/73 (92) 96 10/21/17 20:00 106 10/21/17 20:00 Room Air Result Diagram: 10/21/17 0818 10/22/17 [id number] Alda Lorenzo MD Oct 22, 2017 19:52
--- NOTE | 2017-10-22 19:55 | RADRPT ---
EXAM DATE/TIME: 10/22/2017 19:07 [facility] COMPARISON: No previous studies available for comparison. INDICATIONS : Bruit. MEDICAL HISTORY : Hypercholesterolemia. Hypertension. Diabetes. Liver disease. SURGICAL HISTORY : Tonsillectomy. ENCOUNTER: Initial ACUITY: 1 day PAIN SCORE: 0/10 LOCATION: Bilateral neck PEAK SYSTOLIC VELOCITIES (cm/sec): ICA/CCA RATIO: Right: 0.9 Left: 1.0 ICA: Right: 73 Left: 84 CCA: Right: 85 Left: 87 ECA: Right: 108 Left: 92 VERTEBRAL: Right: 45 antegrade Left: 54 antegrade Elevated flow velocities and ICA/CCA ratios have been found to correlate with increased degrees of vessel stenosis, calculated as percentage of diameter relative to a normal segment of distal ICA/CCA FINDINGS: RIGHT CAROTID: No significant stenosis is visualized. The waveforms are within normal limits. LEFT CAROTID: There is a minimal plaquing at the left carotid bifurcation. No significant stenosis is visualized. The waveforms are within normal limits. VERTEBRAL ARTERIES: Antegrade flow is seen in both vertebral arteries. MISCELLANEOUS: None. CONCLUSION: 1. Minimal atherosclerotic plaquing at the left carotid bifurcation. 2. Otherwise, no focal high-grade or hemodynamically significant stenosis is demonstrated. Andre Harmon MD on October 22, 2017 at 19:52 Board Certified Radiologist. This report was verified electronically.
[2017-10-22 20:00] VITALS: BP 138/76; PULSE 77; RESP 20; TEMP 98.6; O2SAT 99
[2017-10-22] MEDS ORDERED: IOHEXOL 350 MG/ML 10 ML VIAL (for RAD DIAG) IVCONTRAST ONE (20:12)
[2017-10-23] VITALS (7 sets, daily range): BP systolic 113–140; BP diastolic 57–83; PULSE 73–93; RESP 16–20; TEMP 97.7–98.4; O2SAT 96–99
[2017-10-23] MEDS: HEPARIN SODIUM - SQ 10,000 UNITS/ML VIAL SQ SCH ×2 (02:01→13:46)
[2017-10-23] MEDS: AZTREONAM INJ 2,000 MG in SODIUM CHLORIDE 0.9% INJ 100 ML IV SCH ×2 (04:00→13:45)
[2017-10-23] MEDS: VANCOMYCIN INJ 2,500 MG in SODIUM CHLORID 0.9% 500 ML INJ 500 ML IV SCH ×2 (05:30→19:32)
--- NOTE | 2017-10-23 05:56 | MB ---
cc: SIDNEY JORDAN MD DATE OF CONSULTATION 10/22/[address] Serrano REASON Cellulitis of the right lower extremity. HISTORY OF PRESENT ILLNESS This is a 62-year-old black male who presented to the emergency department on 10/20/2017 with edema of his right lower extremity. The patient reportedly developed swelling of the right lower extremity with weeping of clear fluid. He was on Lasix up until about a month ago when he said he ran out of his insurance through the patient assistance and could not afford the medications and therefore stopped using medicines for about that period of time. The patient was evaluated in the emergency department and his white blood cell count was elevated at 23.1. He underwent x-ray of the right foot which showed osteopenia with degenerative changes but no osteomyelitis. He also was noted to have a necrotic area at the tuft of the second toe on the right foot and has ulcerated areas at the anterior barrios, posterior tibia and dorsum of the right foot. This is currently wrapped in a dressing applied by the wound care service. The patient states that after he was admitted he noticed some redness at his right thigh. He now has a large area of erythema and induration involving most of the right hip region laterally and down to the mid-right thigh. This area is erythematous and warm. There is a blister with clear fluid at the lower aspect of that area of erythema. The patient denies chills. He denies nausea or vomiting. He denies any trauma to the right thigh or right hip. He denies insect bites to the skin of the right hip or right thigh. An MRI of the right foot revealed soft tissue swelling involving the dorsum of the right forefoot suggestive of diffuse cellulitis. An ultrasound of the lower extremity was negative for deep venous thrombosis. PAST MEDICAL HISTORY 1. Hypertension. 2. Right knee tendon surgery. ALLERGIES PENICILLIN. MEDICATIONS 1. Vancomycin. 2. Aztreonam. 3. Folate. 4. Thiamine. 5. Theragran. 6. Subcutaneous heparin. SOCIAL HISTORY No tobacco. Occasional alcohol. Denies illicit drugs. FAMILY HISTORY Noncontributory. REVIEW OF SYSTEMS CONSTITUTIONAL: Denies fever or chills. HEAD, EARS, NOSE AND THROAT: He denies visual blurring. No diplopia. No difficulty swallowing or soreness of the throat. No swelling of the neck. CARDIOVASCULAR: Denies palpitation or chest pain. RESPIRATORY: Denies cough, shortness of breath. GASTROINTESTINAL: No nausea, vomiting, abdominal pain or diarrhea. GENITOURINARY: No urgency, frequency or dysuria. HEMATOPOIETIC: No easy bruising or bleeding. MUSCULOSKELETAL: Significant for swelling of the right lower extremity. INTEGUMENTARY: Denies skin rash or itching. ENDOCRINE: Denies polyuria, polydipsia. NEUROLOGIC: Denies problems with coordination or gait. Denies mood changes. PHYSICAL EXAMINATION GENERAL: This is a well-developed male who is in no acute distress. He is awake and alert and oriented. VITAL SIGNS: Temperature 98.4, BP 129/59, respirations 18, heart rate 77. HEAD, EARS, NOSE AND THROAT: The head is atraumatic. Extraocular movements grossly intact. Pupils reactive to light without icterus. Oropharynx - The patient has partial dentures. NECK: Supple. No adenopathy. LUNGS: Clear breath sounds. HEART: Regular S1 and S2, without murmurs, rubs or gallops. ABDOMEN: Bowel sounds present. Soft, no tenderness appreciated. RECTAL: Not performed. EXTREMITIES: The right hip has induration and erythema and cracked areas of the skin at the right lateral hip. The right leg is wrapped in a dressing. The right second toe has necrotic, dried skin at the tuft. No visible drainage. SKIN: No diffuse rash. NEUROLOGIC: Nonfocal site. PSYCH: The patient is calm, pleasant and cooperative. LABORATORY DATA WBC 15.6, platelets 260, hemoglobin 12.9, 86% neutrophils. Sodium 133, BUN 6, creatinine 0.66, estimated GFR 149. Bone scan results pending. IMPRESSION 1. Cellulitis of the right hip. 2. Open ulcerated wounds of the right tibia and right foot. 3. Possible osteomyelitis of the right second toe. RECOMMENDATIONS 1. Continue vancomycin. 2. Continue aztreonam. 3. Monitor blood cultures. 4. Monitor response of the cellulitis-involved areas. 5. Follow the bone scan of the left second toe. Podiatry following and can determine whether surgical intervention is necessary. Thank you for this consultation. The patient's progress will be monitored and further recommendations will be given upon followup if necessary. Sidney Jordan MD FD/JACQUES /5:15 PM /5:23 AM
[2017-10-23 07:22] LABS: ALBUMIN 1.6 GM/DL (3.4-5.0); ALT (GPT) 38 U/L (12-78); AST (GOT) 51 U/L (15-37); BICARBONATE 27.4 MEQ/L (21.0-32.0); BLOOD UREA NITROGEN 6 MG/DL (7-18); CALCIUM 7.7 MG/DL (8.5-10.1); CHLORIDE 102 MEQ/L (98-107); CREATININE 0.59 MG/DL (0.60-1.30); GLOMERULAR FILTRATION RATE 169 ML/MIN (>89); GLUCOSE,RANDOM 100 MG/DL (74-106); MAGNESIUM 2.5 MG/DL (1.5-2.5); SODIUM (NA) 136 MEQ/L (136-145)
[2017-10-23 07:24] LABS: ALKALINE PHOSPHATASE 135 U/L (45-117); TOTAL BILIRUBIN ADULT 1.4 MG/DL (0.2-1.0); TOTAL PROTEIN 7.4 GM/DL (6.4-8.2)
[2017-10-23 08:00] LABS: AUTOMATED NEUTROPHIL # 5.5 TH/MM3 (1.8-7.7); BASOPHIL % 0.5 % (0.0-2.0); EOSINOPHIL # 0.1 TH/MM3 (0-0.4); HEMATOCRIT 33.8 % (39.0-51.0); HEMOGLOBIN 11.7 GM/DL (13.0-17.0); LYMPHOCYTE # 1.3 TH/MM3 (1.0-4.8); MEAN CELL VOLUME 91.5 FL (80.0-100.0); MEAN CORPUSCULAR HEMOGLOBIN 31.6 PG (27.0-34.0); MEAN CORPUSCULAR HGB CONC 34.6 % (32.0-36.0); MEAN PLATELET VOLUME 8.1 FL (7.0-11.0); MONO % 10.7 % (0.0-8.0); MONOCYTE # 0.8 TH/MM3 (0-0.9); NEUT % 70.8 % (16.0-70.0); PLATELET COUNT 248 TH/MM3 (150-450); RED CELL DISTRIBUTION WIDTH 14.5 % (11.6-17.2); WHITE BLOOD COUNT 7.8 TH/MM3 (4.0-11.0)
[2017-10-23] MEDS: THIAMINE HCL 100 MG TAB PO SCH (10:21)
[2017-10-23] MEDS: FOLIC ACID 1 MG TAB PO SCH (10:21)
[2017-10-23] MEDS: MULTIVITAMINS/MINERALS THERAPEUTIC TAB PO SCH (10:21)
[2017-10-23] MEDS: SODIUM CHLORIDE 0.9% FLUSH 10 ML FLUSH IV FLUSH SCH ×2 (10:22→19:32)
--- NOTE | 2017-10-23 14:00 | HHI.PR ---
Subjective Remarks Follow-up right lower extremity cellulitis. Patient has no new complaints denies right lower extremity pain. Discussed with nursing. Objective Vitals Vital Signs Date Time Temp Pulse Resp B/P (MAP) Pulse Ox O2 Delivery O2 Flow Rate FiO2 10/23/17 12:00 98.2 84 20 133/71 (91) 96 10/23/17 08:00 97.7 73 20 113/57 (75) 97 10/23/17 04:00 98.1 74 16 140/83 (102) 96 10/22/17 21:00 Room Air 10/22/17 20:00 98.6 77 20 138/76 (96) 99 10/22/17 16:11 98.4 77 18 129/59 (82) 99 I/O 10/22/17 10/22/17 10/22/17 10/23/17 10/23/17 10/23/17 07:00 15:00 23:00 07:00 15:00 23:00 Intake Total 100 ml 580 ml 600 ml 1800 ml 500 ml Output Total 1525 ml 1000 ml 1000 ml Balance 100 ml -945 ml 600 ml 800 ml -500 ml Intake Oral 480 ml 1800 ml IV Total 100 ml 100 ml 600 ml 500 ml Output Urine Total 1525 ml 1000 ml 1000 ml # Bowel Movements 1 0 Result Diagram: 10/23/1762810/23/17628 Imaging Last Impressions Carotid Artery Ultrasound 10/22/17 0000 Signed Impressions: Service Date/Time: Sunday, October 22, 2017 19:07 - CONCLUSION: 1. Minimal atherosclerotic plaquing at the left carotid bifurcation. 2. Otherwise, no focal high-grade or hemodynamically significant stenosis is demonstrated. Andre Harmon MD Bone Scan Nuclear Medicine 10/22/17 0000 Signed Impressions: Service Date/Time: Sunday, October 22, 2017 09:07 - CONCLUSION: Abnormal scan appearance as above, however low suspicion of osteomyelitis based upon findings as discussed. Phil Dao MD Foot MRI 10/21/17 0000 Signed Impressions: Service Date/Time: Saturday, October 21, 2017 09:21 - CONCLUSION: 1. Soft tissue swelling involving the dorsum of the right forefoot suggestive of diffuse cellulitis. There is also swelling of the tip of the second digit. Some edema is noted involving the second distal phalanx although examination of this area of the foot is somewhat limited due to the position of the phalanges. If there is strong clinical concern for osteomyelitis involving the second distal phalanx three-phase bone scan or white blood cell scan may be useful for further evaluation. 2. Focal edema involving the peroneal tubercle of the calcaneus as well as increased signal within the peroneus longus tendon suggestive of tendinopathy/tenosynovitis. 1. Jose F Albert MD Lower Extremity Ultrasound 10/20/17 1130 Signed Impressions: Service Date/Time: Friday, October 20, 2017 11:47 - CONCLUSION: Negative for deep venous thrombosis. Inguinal lymph nodes. Andriy Ivory MD FACR Chest X-Ray 10/20/17 1130 Signed Impressions: Service Date/Time: Friday, October 20, 2017 11:58 - CONCLUSION: 1. Cardiomegaly. 2. No focal infiltrate or pulmonary vascular congestion. Jose F Albert MD Liver Ultrasound 10/20/17 0000 Signed Impressions: Service Date/Time: Friday, October 20, 2017 13:47 - CONCLUSION: 1. Cholelithiasis 2. Echogenic liver compatible with fatty infiltration or hepatocellular disease. 3. Splenomegaly Al Jhaveri MD Foot X-Ray 10/20/17 0000 Signed Impressions: Service Date/Time: Friday, October 20, 2017 15:43 - CONCLUSION: Osteopenia with degenerative changes. No osteomyelitis. Andriy Ivory MD FACR Objective Remarks GENERAL: This is a well-nourished, well-developed patient, in no apparent distress. Alert and oriented 3. SKIN: No rashes, ecchymoses or lesions. Cool and dry. CARDIOVASCULAR: Regular rate and rhythm without murmurs, gallops, or rubs. RESPIRATORY: Clear to auscultation. Breath sounds equal bilaterally. No wheezes , rales, or rhonchi. GASTROINTESTINAL: Abdomen soft, non-tender, nondistended. No guarding. MUSCULOSKELETAL: Extremities without clubbing, cyanosis.No joint tenderness, effusion. No calf tenderness. Negative Homans sign bilaterally. Cellulitis extending to right lateral thigh, looks stable. Right leg with unna boot NEUROLOGICAL: Awake and alert. Cranial nerves II through XII intact. Motor and sensory grossly within normal limits. Five out of 5 muscle strength in all muscle groups. Normal speech. Procedures none A/P Problem List: (1) Sepsis affecting skin ICD Code: A41.9 - Sepsis, unspecified organism Status: Acute Assessment and Plan Sepsis.with right lower extremity cellulitis and ulcer right 2nd toe -Continue IV vancomycin and aztreonam. Penicillin allergy noted. Follow-up blood cultures negative to date. MRI noted. Bone scan with low suspicion for osteomyelitis. Wound care per Podiatry. Consulted infectious disease Abnormal [place]. Vascular surgery consulted ordered CTA follow-up results Transaminitis, hyperbilirubinemia -inr 1.3 -Patient without abdominal pain. -Likely secondary to chronic alcoholism. -Liver ultrasound with fatty infiltration. Likely alcoholic fatty liver disease. -CIWA. cont to monitor for signs of withdrawal. Chronic alcoholism. - Patient reports drinking several beers every other day. Denies withdrawal. Counselled Hyponatremia. Sodium 134. Likely secondary to chronic alcoholism, liver disease. Continue to monitor. Hypokalemia. Improving replace as needed. Continue to monitor. DVT proph with heparin Roshan Serrano MD Oct 23, 2017 14:00
--- NOTE | 2017-10-23 16:50 | HHI.IDPN ---
Note Infectious Disease Note Patient says he feels okay. Afebrile. Bone scan shows no osteomyelitis. R. hip/thigh still with erythema. 62-year-old black male who presented to the emergency department on 10/20/2017 with edema of his right lower extremity. The patient reportedly developed swelling of the right lower extremity with weeping of clear fluid. He was on Lasix up until about a month ago when he said he ran out of his insurance through the patient assistance and could not afford the medications and therefore stopped using medicines for about that period of time. PAST MEDICAL HISTORY 1. Hypertension. 2. Right knee tendon surgery. ALLERGIES PENICILLIN. MEDICATIONS 1. Vancomycin. 2. Aztreonam. PHYSICAL EXAMINATION GENERAL: No acute distress. He is awake and alert and oriented. HEAD, EARS, NOSE AND THROAT: The head is atraumatic. Extraocular movements grossly intact. Pupils reactive to light without icterus. Oropharynx - The patient has partial dentures. NECK: Supple. No adenopathy. LUNGS: Clear breath sounds. HEART: Regular S1 and S2, without murmurs, rubs or gallops. ABDOMEN: Bowel sounds present. Soft. EXTREMITIES: The right hip has induration. Erythema has decreased slightly. The right leg is wrapped in a dressing. Ulcerations noted. The right second toe has necrotic, dried skin at the tuft. No visible drainage. SKIN: No diffuse rash. NEUROLOGIC: Nonfocal site. PSYCH: The patient is calm, pleasant and cooperative. IMPRESSION 1. Cellulitis of the right hip. 2. Open ulcerated wounds of the right tibia and right foot. 3. Right second toe wound without osteomyelitis. RECOMMENDATIONS 1. Continue vancomycin. 2. Change Aztreonam to PO levaquin. 3. Monitor blood cultures. 4. Monitor r. hip cellulitis. Sylvester Jordan MD Oct 23, 2017 16:50
[2017-10-23] MEDS: LEVOFLOXACIN 750 MG TAB PO SCH (19:17)
--- NOTE | 2017-10-23 22:54 | HHI.PR ---
Subjective Remarks Patient seen bedside this evening. Denies any nausea vomiting fevers or chills. States he is feeling better and there is reduced pain to the RLE. Objective Vital Signs Date Time Temp Pulse Resp B/P (MAP) Pulse Ox O2 Delivery O2 Flow Rate FiO2 10/23/17 20:00 Room Air 10/23/17 19:53 97.7 93 18 133/65 (87) 98 10/23/17 17:58 77 10/23/17 16:00 98.4 83 20 130/62 (84) 99 10/23/17 12:00 98.2 84 20 133/71 (91) 96 10/23/17 12:00 84 10/23/17 08:00 97.7 73 20 113/57 (75) 97 10/23/17 08:00 73 10/23/17 07:15 96 Room Air 10/23/17 04:00 98.1 74 16 140/83 (102) 96 I/O 10/22/17 10/22/17 10/22/17 10/23/17 10/23/17 10/23/17 06:59 14:59 22:59 06:59 14:59 22:59 Intake Total 100 ml 580 ml 600 ml 1800 ml 1220 ml 730 ml Output Total 1525 ml 2600 ml 1000 ml Balance 100 ml -945 ml 600 ml -800 ml 220 ml 730 ml Intake Oral 480 ml 1800 ml 720 ml IV Total 100 ml 100 ml 600 ml 500 ml 730 ml Output Urine Total 1525 ml 2600 ml 1000 ml # Bowel Movements 1 0 Result Diagram: 10/23/17 0629 10/23/17 0629 Imaging Last Impressions Carotid Artery Ultrasound 10/22/17 0000 Signed Impressions: Service Date/Time: Sunday, October 22, 2017 19:07 - CONCLUSION: 1. Minimal atherosclerotic plaquing at the left carotid bifurcation. 2. Otherwise, no focal high-grade or hemodynamically significant stenosis is demonstrated. Andre Harmon MD Bone Scan Nuclear Medicine 10/22/17 0000 Signed Impressions: Service Date/Time: Sunday, October 22, 2017 09:07 - CONCLUSION: Abnormal scan appearance as above, however low suspicion of osteomyelitis based upon findings as discussed. Phil Dao MD Foot MRI 10/21/17 0000 Signed Impressions: Service Date/Time: Saturday, October 21, 2017 09:21 - CONCLUSION: 1. Soft tissue swelling involving the dorsum of the right forefoot suggestive of diffuse cellulitis. There is also swelling of the tip of the second digit. Some edema is noted involving the second distal phalanx although examination of this area of the foot is somewhat limited due to the position of the phalanges. If there is strong clinical concern for osteomyelitis involving the second distal phalanx three-phase bone scan or white blood cell scan may be useful for further evaluation. 2. Focal edema involving the peroneal tubercle of the calcaneus as well as increased signal within the peroneus longus tendon suggestive of tendinopathy/tenosynovitis. 1. Jose F Albert MD Lower Extremity Ultrasound 10/20/17 1130 Signed Impressions: Service Date/Time: Friday, October 20, 2017 11:47 - CONCLUSION: Negative for deep venous thrombosis. Inguinal lymph nodes. Andriy Ivory MD FACR Chest X-Ray 10/20/17 1130 Signed Impressions: Service Date/Time: Friday, October 20, 2017 11:58 - CONCLUSION: 1. Cardiomegaly. 2. No focal infiltrate or pulmonary vascular congestion. Jose F Albert MD Liver Ultrasound 10/20/17 0000 Signed Impressions: Service Date/Time: Friday, October 20, 2017 13:47 - CONCLUSION: 1. Cholelithiasis 2. Echogenic liver compatible with fatty infiltration or hepatocellular disease. 3. Splenomegaly Al Jhaveri MD Foot X-Ray 10/20/17 0000 Signed Impressions: Service Date/Time: Friday, October 20, 2017 15:43 - CONCLUSION: Osteopenia with degenerative changes. No osteomyelitis. Andriy Ivory MD FACR Other Results Laboratory Tests Test 10/22/17 05:57 10/22/17 06:00 10/23/17 06:29 Blood Urea Nitrogen 6 MG/DL 6 MG/DL Creatinine 0.66 MG/DL 0.59 MG/DL Random Glucose 137 MG/DL 100 MG/DL Calcium Level 7.7 MG/DL 7.7 MG/DL Magnesium Level 2.7 MG/DL 2.5 MG/DL Sodium Level 133 MEQ/L 136 MEQ/L Potassium Level 3.1 MEQ/L 3.7 MEQ/L Chloride Level 97 MEQ/L 102 MEQ/L Carbon Dioxide Level 30.9 MEQ/L 27.4 MEQ/L Anion Gap 5 MEQ/L 7 MEQ/L Estimat Glomerular Filtration Rate 149 ML/MIN 169 ML/MIN Vancomycin Level Trough 11.3 MCG/ML White Blood Count 7.8 TH/MM3 Red Blood Count 3.70 MIL/MM3 Hemoglobin 11.7 GM/DL Hematocrit 33.8 % Mean Corpuscular Volume 91.5 FL Mean Corpuscular Hemoglobin 31.6 PG Mean Corpuscular Hemoglobin Concent 34.6 % Red Cell Distribution Width 14.5 % Platelet Count 248 TH/MM3 Mean Platelet Volume 8.1 FL Neutrophils (%) (Auto) 70.8 % Lymphocytes (%) (Auto) 17.0 % Monocytes (%) (Auto) 10.7 % Eosinophils (%) (Auto) 1.0 % Basophils (%) (Auto) 0.5 % Neutrophils # (Auto) 5.5 TH/MM3 Lymphocytes # (Auto) 1.3 TH/MM3 Monocytes # (Auto) 0.8 TH/MM3 Eosinophils # (Auto) 0.1 TH/MM3 Basophils # (Auto) 0.0 TH/MM3 CBC Comment DIFF FINAL Differential Comment Total Protein 7.4 GM/DL Albumin 1.6 GM/DL Alkaline Phosphatase 135 U/L Aspartate Amino Transf (AST/SGOT) 51 U/L Alanine Aminotransferase (ALT/SGPT) 38 U/L Total Bilirubin 1.4 MG/DL Objective Remarks Lower extremity physical exam: Vascular: Dorsalis pedis nonpalpable secondary to edema, posterior tibial nonpalpable secondary to edema. Capillary refill time within normal limits to digits 5 bilateral foot. Edema present right foot lower extremity with pitting noted continued improvement noted in edema. Neuro: Gross sensation intact to bilateral lower extremity. Pinpoint sensation decreased. No hyperalgesia noted to bilateral lower extremity Dermatology: Unna boot dressing to RLE clean, dry and intact. Second digit distal tip ulcer with serosanguineous drainage, (-) probe to bone, Epithelization present. No crepitus or fluctuance noted. Musculoskeletal: Tender to palpation to right lower extremity. Hammertoes noted to right foot 2 through 5. Decrease in medial longitudinal arch. Medications and IVs Current Medications Medications (Trade) Dose Ordered Sig/Rachel Route Start Time Stop Time Status Last Admin Pharmacy Profile Note 0 ml @ 0 mls/hr UNSCH OTHER 10/20/17 13:30 (NS Flush) 2 ml UNSCH PRN IV FLUSH 10/20/17 13:30 (NS Flush) 2 ml BID IV FLUSH 10/20/17 21:00 10/23/17 19:32 (Zofran Inj) 4 mg Q6H PRN IVP 10/20/17 13:30 (Heparin Inj) 5,000 units Q12H SQ 10/20/17 14:00 10/23/17 13:46 (Narcan Inj) 0.4 mg UNSCH PRN IV PUSH 10/20/17 13:30 (Milk Of Magnesia Liq) 30 ml Q12H PRN PO 10/20/17 13:30 (Senokot) 17.2 mg Q12H PRN PO 10/20/17 13:30 (Dulcolax Supp) 10 mg DAILY PRN RECTAL 10/20/17 13:30 (Lactulose Liq) 30 ml DAILY PRN PO 10/20/17 13:30 (Romazicon Inj) 0.2 mg Q1M PRN IV PUSH 10/20/17 15:15 (Ativan) 1 mg Q4H PRN PO 10/20/17 15:15 (Ativan Inj) 1 mg Q4H PRN IV PUSH 10/20/17 15:15 (Ativan) 2 mg Q2H PRN PO 10/20/17 15:15 (Ativan Inj) 2 mg Q2H PRN IV PUSH 10/20/17 15:15 (Ativan Inj) 2 mg Q1H PRN IV PUSH 10/20/17 15:15 (Ativan Inj) 2 mg Q15M PRN IV PUSH 10/20/17 15:15 (Folate) 1 mg DAILY PO 10/21/17 09:00 10/26/17 08:59 10/23/17 10:21 (Vitamin B1) 100 mg DAILY PO 10/21/17 09:00 10/23/17 10:21 (Theragran M Tab) 1 tab DAILY PO 10/21/17 09:00 10/26/17 08:59 10/23/17 10:21 (Morphine Inj) 1 mg Q3H PRN IV PUSH 10/21/17 09:30 (Ultram) 50 mg Q4H PRN PO 10/21/17 09:30 (Ultram) 100 mg Q4H PRN PO 10/21/17 09:30 10/22/17 12:12 Vancomycin HCl 2500 mg/Sodium Chloride 525 ml @ 250 mls/hr Q12H IV 10/22/17 18:00 10/23/17 19:32 Miscellaneous Information SPECIFIC LAB TO BE DRAWN:VANCO TROUGH DATE... ONCE ONCE .XX 10/24/17 05:45 10/24/17 05:46 (Levaquin) 750 mg DAILY PO 10/23/17 18:00 10/23/17 19:17 Assessment and Plan Assessment and Plan 62-year-old male with right lower extremity cellulitis, right second digit ulcer with probing bone Patient examined and evaluated Low suspicion for OM to right second digit Epithelization present to distal tip of right second digit - healing noted - improvement noted No surgical intervention planned for right second digit Continue with [employer] dressings to Monica Ghotra DPM Oct 23, 2017 22:54
[2017-10-24] VITALS (9 sets, daily range): BP systolic 116–156; BP diastolic 60–81; PULSE 72–85; RESP 18–20; TEMP 97.3–99; O2SAT 96–99
[2017-10-24] MEDS: HEPARIN SODIUM - SQ 10,000 UNITS/ML VIAL SQ SCH ×2 (00:51→12:56)
[2017-10-24] MEDS ORDERED: PHARMACY ORDERED LAB ONE (05:45)
[2017-10-24] MEDS: VANCOMYCIN INJ 2,500 MG in SODIUM CHLORID 0.9% 500 ML INJ 500 ML IV SCH ×2 (05:46→16:46)
[2017-10-24] MEDS: THIAMINE HCL 100 MG TAB PO SCH (07:55)
[2017-10-24] MEDS: FOLIC ACID 1 MG TAB PO SCH (07:55)
[2017-10-24] MEDS: MULTIVITAMINS/MINERALS THERAPEUTIC TAB PO SCH (07:55)
[2017-10-24] MEDS: SODIUM CHLORIDE 0.9% FLUSH 10 ML FLUSH IV FLUSH SCH ×2 (07:55→21:56)
[2017-10-24] MEDS: LEVOFLOXACIN 750 MG TAB PO SCH (07:55)
--- NOTE | 2017-10-24 08:36 | MB ---
cc: ALDA LORENZO MD DATE OF CONSULTATION 10/22/[address] Lorenzo REASON FOR CONSULTATION Peripheral vascular disease. Ulcer of the right second toe and gangrene. HISTORY OF PRESENT DISEASE This 62-year-old male, appearing older than his actual age, presents to the emergency department with edema of both legs, right more than left. The patient says that this happened over periods of months and he was on Lasix that he borrowed from somebody I guess and then stopped. The patient is now admitted. He is noted to have right second toe ulcerated area with gangrene as was well and ulcerated areas of the barrios and posterior tibia and dorsum of the right foot. Dressing is now in place. The patient has chronic venous stasis changes and question arises about any surgical implications. PAST MEDICAL HISTORY 1. Hypertension. 2. Right knee surgery of some sorts for reconstruction without replacement. SOCIAL HISTORY The patient does not smoke, drinks occasionally. He is noncompliant obviously with medical care. PHYSICAL EXAMINATION GENERAL: A 62-year-old pleasant gentleman. HEENT: Normocephalic. No trauma to the head. Pupils equally reactive. Extraocular muscles intact. NECK: Bilateral carotid pulses. No bruits. CHEST: Bilateral breath sounds decreased over both lung cancino. HEART: Regular rhythm. ABDOMEN: Soft, obese. Active bowel sounds. EXTREMITIES: The patient has fairly obese upper extremities which are swollen and soft and the majority of the other swelling is below the level of the knee. Pulses are hard to palpate due to the patient's obesity, but left femoral pulses is weak palpable. Dopplerable popliteal pulse bilateral and then on the left-side is dorsalis pedis and posterior tibial which are weak. On the right side I cannot detect any pulses because of the dressing. He has clearly chronic venous stasis stigmata of both legs with thick, fibrotic skin, some degree of elephantiasis, redness and then ulcers as above-noted. ASSESSMENT AND PLAN At this point arteriogram will be obtained. We will see which way this goes. Based on clinical exam patient does not have significant degree of inflow disease and if anything will have disease below the level of the knee which is very much inaccessible to any endovascular or open intervention in face of ulcerations chronic venous stasis elephantiasis and lipo-fibrosis noted on physical exam. Alda LOPEZ/SSB /5:13 PM 8:10 AM [facility]
--- NOTE | 2017-10-24 10:44 | HHI.PR ---
Subjective Remarks Follow-up right lower extremity infection. Patient has no new complaints continues to have pain. Discuss with vascular surgery, CTA will be repeated as study was inconclusive Objective Vitals Vital Signs Date Time Temp Pulse Resp B/P (MAP) Pulse Ox O2 Delivery O2 Flow Rate FiO2 10/24/17 08:00 98.1 72 18 150/77 (101) 96 10/24/17 04:00 97.3 75 20 132/76 (94) 96 10/24/17 04:00 78 10/24/17 00:00 80 10/24/17 00:00 98.8 77 18 116/60 (78) 99 10/23/17 20:00 80 10/23/17 20:00 Room Air 10/23/17 19:53 97.7 93 18 133/65 (87) 98 10/23/17 17:58 77 10/23/17 16:00 98.4 83 20 130/62 (84) 99 10/23/17 12:00 98.2 84 20 133/71 (91) 96 10/23/17 12:00 84 I/O 10/23/17 10/23/17 10/23/17 10/24/17 10/24/17 10/24/17 07:00 15:00 23:00 07:00 15:00 23:00 Intake Total 1800 ml 1220 ml 730 ml Output Total 2600 ml 1000 ml 2200 ml Balance -800 ml 220 ml 730 ml -2200 ml Intake Oral 1800 ml 720 ml IV Total 500 ml 730 ml Output Urine Total 2600 ml 1000 ml 2200 ml # Bowel Movements 0 Result Diagram: 10/23/17 0629 10/23/17 06 Objective Remarks GENERAL: This is a well-nourished, well-developed patient, in no apparent distress. Alert and oriented 3. SKIN: No rashes, ecchymoses or lesions. Cool and dry. CARDIOVASCULAR: Regular rate and rhythm without murmurs, gallops, or rubs. RESPIRATORY: Clear to auscultation. Breath sounds equal bilaterally. No wheezes , rales, or rhonchi. GASTROINTESTINAL: Abdomen soft, non-tender, nondistended. No guarding. MUSCULOSKELETAL: Extremities without clubbing, cyanosis.No joint tenderness, effusion. No calf tenderness. Negative Homans sign bilaterally. Cellulitis extending to right lateral thigh, looks stable. Right leg with unna boot NEUROLOGICAL: Awake and alert. Cranial nerves II through XII intact. Motor and sensory grossly within normal limits. Five out of 5 muscle strength in all muscle groups. Normal speech. Procedures none A/P Problem List: (1) Sepsis affecting skin ICD Code: A41.9 - Sepsis, unspecified organism Status: Acute Assessment and Plan Sepsis with right lower extremity cellulitis and ulcer right 2nd toe. Stable -Continue IV vancomycin and p.o. Levaquin status post aztreonam. Penicillin allergy noted. Follow-up blood cultures negative to date. MRI noted. Bone scan with low suspicion for osteomyelitis. Wound care per Podiatry. Consulted infectious disease Abnormal [place]. Vascular surgery consulted ordered repeat CTA Transaminitis, hyperbilirubinemia -inr 1.3 -Patient without abdominal pain. -Likely secondary to chronic alcoholism. -Liver ultrasound with fatty infiltration. Likely alcoholic fatty liver disease. -CIWA. cont to monitor for signs of withdrawal. Chronic alcoholism. - Patient reports drinking several beers every other day. Denies withdrawal. Counselled Hyponatremia. Sodium 134. Likely secondary to chronic alcoholism, liver disease. Continue to monitor. Hypokalemia. Improving replace as needed. Continue to monitor. DVT proph with heparin Roshan Serrano MD Oct 24, 2017 10:44
--- NOTE | 2017-10-24 12:58 | PD.CAR.PN ---
CVT Progress Note Subjective/Hospital Course: Referral received Full consult EVAN Billings 10/24/2017 Patient with gangrene of the second toe chronic venous stasis and venous insufficiency as well as anasarca CTA was performed but the quality of this is poor due to non-penetration of the contrast distally so no conclusion can be made as to the degree of peripheral vascular disease in this gentleman Have discussed this with radiology and study will be repeated considering that patient probably has significant degree of vascular changes especially distally below the level of the knee Objective: Vital Signs Date Time Temp Pulse Resp B/P (MAP) Pulse Ox O2 Delivery O2 Flow Rate FiO2 10/24/17 12:06 Room Air 10/24/17 12:05 72 10/24/17 12:00 98.2 79 18 140/71 (94) 98 10/24/17 08:00 98.1 72 18 150/77 (101) 96 10/24/17 04:00 97.3 75 20 132/76 (94) 96 10/24/17 04:00 78 10/24/17 00:00 80 10/24/17 00:00 98.8 77 18 116/60 (78) 99 10/23/17 20:00 80 10/23/17 20:00 Room Air 10/23/17 19:53 97.7 93 18 133/65 (87) 98 10/23/17 17:58 77 10/23/17 16:00 98.4 83 20 130/62 (84) 99 Labs: Laboratory Tests Test 10/24/17 05:50 Vancomycin Level Trough 15.5 MCG/ML (5.0-10.0) Result Diagram: 10/23/1729 10/23/1729 Alda Lorenzo MD Oct 24, 2017 12:58
[2017-10-24] MEDS ORDERED: IOHEXOL 350 MG/ML 10 ML VIAL (for RAD DIAG) IVCONTRAST ONE (14:40)
--- NOTE | 2017-10-24 16:12 | HHI.IDPN ---
Note Infectious Disease Note Patient without complaints. Afebrile. R. hip/thigh still with erythema. 62-year-old black male who presented to the emergency department on 10/20/2017 with edema of his right lower extremity. The patient reportedly developed swelling of the right lower extremity with weeping of clear fluid. He was on Lasix up until about a month ago when he said he ran out of his insurance through the patient assistance and could not afford the medications and therefore stopped using medicines for about that period of time. PAST MEDICAL HISTORY 1. Hypertension. 2. Right knee tendon surgery. ALLERGIES PENICILLIN. MEDICATIONS 1. Vancomycin. 2. Levaquin. PHYSICAL EXAMINATION GENERAL: No acute distress. He is awake and alert and oriented. HEAD, EARS, NOSE AND THROAT: The head is atraumatic. Extraocular movements grossly intact. Pupils reactive to light without icterus. Oropharynx - The patient has partial dentures. NECK: Supple. No adenopathy. LUNGS: Clear breath sounds. HEART: Regular S1 and S2, without murmurs, rubs or gallops. ABDOMEN: Bowel sounds present. Soft. EXTREMITIES: The right hip has induration. Erythema has decreased. The right leg is wrapped in a dressing. Ulcerations noted. The right second toe has necrotic, dried skin at the tuft. No visible drainage. SKIN: No diffuse rash. NEUROLOGIC: Nonfocal site. PSYCH: Calm, pleasant and cooperative. IMPRESSION 1. Cellulitis of the right hip. Slowly improving. 2. Open ulcerated wounds of the right tibia and right foot. 3. Right second toe wound without osteomyelitis. RECOMMENDATIONS 1. Continue vancomycin. 2. Continue PO levaquin. 3. Monitor blood cultures. 4. Monitor r. hip cellulitis. Keep on IV Vancomycin through weekend. Sylvester Jordan MD Oct 24, 2017 16:12
--- NOTE | 2017-10-24 16:31 | RADRPT ---
EXAM DATE/TIME: 10/22/2017 20:01 [place] COMPARISON: No previous studies available for comparison. INDICATIONS : Right foot gangrene foot. IV CONTRAST: 90 cc Omnipaque 350 (iohexol) IV RADIATION DOSE: 7.91 CTDIvol (mGy) MEDICAL HISTORY : Hypertension. Liver Disease. SURGICAL HISTORY : None. ENCOUNTER: Initial ACUITY: 1 week PAIN SCALE: 4/10 LOCATION: Right great toe region. TECHNIQUE: Volumetric scanning was performed using a multi-row detector CT scanner. The data was post processed with a variety of visualization algorithms including full volume maximum intensity projection, multi -planar sliding thin slab reformation, curved planar reformation, and surface rendering techniques. Using automated exposure control and adjustment of the mA and/or kV according to patient size, radiat ion dose was kept as low as reasonably achievable to obtain optimal diagnostic quality images. DICO M format image data is available electronically for review and comparison. FINDINGS: Contrast opacification is relatively poor which may relate to poor cardiac output or IV site quality issues. The aorta is widely patent. Aortic visceral vessels are patent. The iliacs are notable for mild eccen tric intimal calcification without significant stenotic narrowing. Common femorals appear relatively healthy. The profunda is appear to be patent. In the legs, the superficial femoral arteries are patent without significant stenotic narrowing. The popliteal arteries. Relatively healthy. Luminal evaluation of the tibials is limited secondary to den se intimal calcification and poor contrast opacification. Distal vessel or small vessel disease is no t excluded in this patient. Elsewhere on the exam, note is made of hiatal hernia fat and bowel containing right inguinal hernia e xtends into the scrotum and edematous change present throughout the soft tissues of the right leg, pa rticularly the anterior barrios region. CONCLUSION: Technically limited examination with no definite evidence of significant inflow disease or femoropopl iteal disease. Calf vessel and/or small vessel disease is not excludable in this patient. Phil Dao MD on October 24, 2017 at 16:24 Board Certified Radiologist. This report was verified electronically.
[2017-10-25] VITALS: BP 151/71; PULSE 74; PULSE 77; RESP 18; TEMP 98.1; O2SAT 96
[2017-10-25] MEDS: HEPARIN SODIUM - SQ 10,000 UNITS/ML VIAL SQ SCH ×2 (04:28→14:50)
[2017-10-25] MEDS: VANCOMYCIN INJ 2,500 MG in SODIUM CHLORID 0.9% 500 ML INJ 500 ML IV SCH ×2 (06:06→17:30)
[2017-10-25 08:00] VITALS: BP 140/70; PULSE 66; PULSE 70; RESP 20; TEMP 97.2; O2SAT 92
[2017-10-25] MEDS: LEVOFLOXACIN 750 MG TAB PO SCH (08:25)
[2017-10-25] MEDS: MULTIVITAMINS/MINERALS THERAPEUTIC TAB PO SCH (08:25)
[2017-10-25] MEDS: THIAMINE HCL 100 MG TAB PO SCH (08:25)
[2017-10-25] MEDS: FOLIC ACID 1 MG TAB PO SCH (08:25)
[2017-10-25] MEDS: ASPIRIN EC 81 MG TABEC PO SCH (08:25)
[2017-10-25] MEDS: SODIUM CHLORIDE 0.9% FLUSH 10 ML FLUSH IV FLUSH SCH ×2 (08:26→21:00)
--- NOTE | 2017-10-25 09:18 | PD.CAR.PN ---
CVT Progress Note Subjective/Hospital Course: Referral received Full consult EVAN Billings 10/24/2017 Patient with gangrene of the second toe chronic venous stasis and venous insufficiency as well as anasarca CTA was performed but the quality of this is poor due to non-penetration of the contrast distally so no conclusion can be made as to the degree of peripheral vascular disease in this gentleman Have discussed this with radiology and study will be repeated considering that patient probably has significant degree of vascular changes especially distally below the level of the knee 10/25/2017 Patient with chronic venous stasis insufficiency and degenerative changes of the soft tissues below the knee including gangrene of the second toe Based on clinical exam patient does not have inflow disease and all the changes are below the level of the knee CTA is performed but this poor quality study due to delay in flow of the contrast distally and therefore of limited utility Nonetheless, at this point I do not believe it is worth repeating the study because what I can see is that patient does not have an inflow disease problem and all the changes are below the level of the knee and are limited to the small vessels which are not addressable by any surgical or endovascular intervention at this time Therefore at this point patient will not be a surgical candidate and should be managed conservatively. Objective: Vital Signs Date Time Temp Pulse Resp B/P (MAP) Pulse Ox O2 Delivery O2 Flow Rate FiO2 10/25/17 07:26 Room Air 10/25/17 04:00 Room Air 10/25/17 00:00 98.1 77 18 151/71 (97) 96 10/25/17 00:00 74 10/25/17 00:00 Room Air 10/24/17 20:00 Room Air 10/24/17 20:00 99.0 75 18 146/81 (102) 99 10/24/17 20:00 72 10/24/17 17:35 85 10/24/17 16:00 98.5 75 18 156/72 (100) 99 10/24/17 15:08 81 10/24/17 12:06 Room Air 10/24/17 12:05 72 10/24/17 12:00 98.2 79 18 140/71 (94) 98 Result Diagram: 10/23/17 0629 10/23/1729 Alda Lorenzo MD Oct 25, 2017 09:18
[2017-10-25 11:22] LABS: CREATININE 0.65 MG/DL (0.60-1.30)
[2017-10-25 12:00] VITALS: BP 157/91; PULSE 70; PULSE 71; RESP 20; TEMP 97.9; O2SAT 97
--- NOTE | 2017-10-25 15:22 | HHI.PR ---
Subjective Remarks Follow-up right lower extremity infection. Patient complaining of right knee swelling but no pain. Discuss with vascular surgery, no intervention needed. Objective Vitals Vital Signs Date Time Temp Pulse Resp B/P (MAP) Pulse Ox O2 Delivery O2 Flow Rate FiO2 10/25/17 12:00 70 10/25/17 08:00 66 10/25/17 08:00 97.2 70 20 140/70 (93) 92 10/25/17 07:26 Room Air 10/25/17 04:00 Room Air 10/25/17 00:00 98.1 77 18 151/71 (97) 96 10/25/17 00:00 74 10/25/17 00:00 Room Air 10/24/17 20:00 Room Air 10/24/17 20:00 99.0 75 18 146/81 (102) 99 10/24/17 20:00 72 10/24/17 17:35 85 10/24/17 16:00 98.5 75 18 156/72 (100) 99 I/O 10/24/17 10/24/17 10/24/17 10/25/17 10/25/17 10/25/17 07:00 15:00 23:00 07:00 15:00 23:00 Intake Total 1340 ml 650 ml Output Total 2200 ml 2000 ml 2000 ml Balance -2200 ml -660 ml -1350 ml Intake Oral 840 ml 650 ml IV Total 500 ml Output Urine Total 2200 ml 2000 ml 2000 ml # Bowel Movements 2 0 Result Diagram: 10/23/17 0629 10/25/17 1030 Imaging Last Impressions Carotid Artery Ultrasound 10/22/17 0000 Signed Impressions: Service Date/Time: Sunday, October 22, 2017 19:07 - CONCLUSION: 1. Minimal atherosclerotic plaquing at the left carotid bifurcation. 2. Otherwise, no focal high-grade or hemodynamically significant stenosis is demonstrated. Andre Harmon MD Bone Scan Nuclear Medicine 10/22/17 0000 Signed Impressions: Service Date/Time: Sunday, October 22, 2017 09:07 - CONCLUSION: Abnormal scan appearance as above, however low suspicion of osteomyelitis based upon findings as discussed. Phil Dao MD Aorta w/Runoff CTA 10/22/17 0000 Signed Impressions: Service Date/Time: Sunday, October 22, 2017 20:01 - CONCLUSION: Technically limited examination with no definite evidence of significant inflow disease or femoropopliteal disease. Calf vessel and/or small vessel disease is not excludable in this patient. Phil Dao MD Foot MRI 10/21/17 0000 Signed Impressions: Service Date/Time: Saturday, October 21, 2017 09:21 - CONCLUSION: 1. Soft tissue swelling involving the dorsum of the right forefoot suggestive of diffuse cellulitis. There is also swelling of the tip of the second digit. Some edema is noted involving the second distal phalanx although examination of this area of the foot is somewhat limited due to the position of the phalanges. If there is strong clinical concern for osteomyelitis involving the second distal phalanx three-phase bone scan or white blood cell scan may be useful for further evaluation. 2. Focal edema involving the peroneal tubercle of the calcaneus as well as increased signal within the peroneus longus tendon suggestive of tendinopathy/tenosynovitis. 1. Jose F Albert MD Lower Extremity Ultrasound 10/20/170 Signed Impressions: Service Date/Time: Friday, October 20, 2017 11:47 - CONCLUSION: Negative for deep venous thrombosis. Inguinal lymph nodes. Andriy Ivory MD FACR Chest X-Ray 10/20/17 1130 Signed Impressions: Service Date/Time: Friday, October 20, 2017 11:58 - CONCLUSION: 1. Cardiomegaly. 2. No focal infiltrate or pulmonary vascular congestion. Jose F Albert MD Liver Ultrasound 10/20/17 0000 Signed Impressions: Service Date/Time: Friday, October 20, 2017 13:47 - CONCLUSION: 1. Cholelithiasis 2. Echogenic liver compatible with fatty infiltration or hepatocellular disease. 3. Splenomegaly Al Jhaveri MD Foot X-Ray 10/20/17 0000 Signed Impressions: Service Date/Time: Friday, October 20, 2017 15:43 - CONCLUSION: Osteopenia with degenerative changes. No osteomyelitis. Andriy Ivory MD FACR Objective Remarks GENERAL: This is a well-nourished, well-developed patient, in no apparent distress. Alert and oriented 3. SKIN: No rashes, ecchymoses or lesions. Cool and dry. CARDIOVASCULAR: Regular rate and rhythm without murmurs, gallops, or rubs. RESPIRATORY: Clear to auscultation. Breath sounds equal bilaterally. No wheezes , rales, or rhonchi. GASTROINTESTINAL: Abdomen soft, non-tender, nondistended. No guarding. MUSCULOSKELETAL: Extremities without clubbing, cyanosis.No joint tenderness, effusion. No calf tenderness. Negative Homans sign bilaterally. Improving cellulitis extending to right lateral thigh, looks stable. Right leg with unna boot NEUROLOGICAL: Awake and alert. Cranial nerves II through XII intact. Motor and sensory grossly within normal limits. Five out of 5 muscle strength in all muscle groups. Normal speech. Procedures none A/P Problem List: (1) Sepsis affecting skin ICD Code: A41.9 - Sepsis, unspecified organism Status: Acute Assessment and Plan Sepsis with right lower extremity cellulitis and ulcer right 2nd toe. Improving -Continue IV vancomycin and p.o. Levaquin status post aztreonam. Penicillin allergy noted. Follow-up blood cultures negative to date. MRI noted. Bone scan with low suspicion for osteomyelitis. Wound care per Podiatry. Consulted infectious disease Abnormal [place]. Vascular surgery consulted, no intervention needed. Start antiplatelet Transaminitis, hyperbilirubinemia secondary to chronic alcoholism. Patient has been counseled. Chronic alcoholism.-Patient reports drinking several beers every other day. Denies withdrawal. Counselled Hyponatremia. Sodium 134. Likely secondary to chronic alcoholism, liver disease. Continue to monitor. Hypokalemia. Improving replace as needed. Continue to monitor. DVT proph with heparin Discharge Planning Possible discharge in the morning Roshan Serrano MD Oct 25, 2017 15:22
[2017-10-25] MEDS ORDERED: LEVA750T9 PO (15:28)
[2017-10-25] MEDS ORDERED: TRAM50 PO (15:28)
[2017-10-25] MEDS ORDERED: THIA100 PO (15:28)
[2017-10-25] MEDS ORDERED: ECASA81 PO (15:28)
--- NOTE | 2017-10-25 15:28 | HHI.DCPOC ---
Discharge Care Plan Diagnosis: (1) Alcoholism (2) Sepsis affecting skin Your Health Problems Are: Difficulty with ADL Exercise Tolerance Goals to Promote Your Health * To prevent worsening of your condition and complications * To maintain your health at the optimal level Directions to Meet Your Goals Take your medications as prescribed Follow your dietary instruction Follow activity as directed Keep your appointments as scheduled Take your immunizations and boosters as scheduled If your symptoms worsen call your PCP, if no PCP go to Urgent Care Center or Emergency Room Smoking is Dangerous to Your Health. Avoid second hand smoke Call the 24-hour hour crisis hotline for domestic abuse at Roshan Serrano MD Oct 25, 2017 15:28
[2017-10-25 16:00] VITALS: PULSE 70
[2017-10-25 20:00] VITALS: BP 157/78; PULSE 69; PULSE 87; RESP 18; TEMP 98; O2SAT 97
[2017-10-26] VITALS (7 sets, daily range): BP systolic 135–167; BP diastolic 72–88; PULSE 60–82; RESP 18–20; TEMP 97.7–99.2; O2SAT 96–99
[2017-10-26] MEDS: HEPARIN SODIUM - SQ 10,000 UNITS/ML VIAL SQ SCH ×2 (02:00→13:53)
[2017-10-26] MEDS ORDERED: PHARMACY ORDERED LAB ONE (05:45)
[2017-10-26] MEDS: VANCOMYCIN INJ 2,500 MG in SODIUM CHLORID 0.9% 500 ML INJ 500 ML IV SCH ×2 (06:16→17:43)
--- NOTE | 2017-10-26 06:31 | HHI.PR ---
Subjective Remarks Patient seen bedside this evening. Denies any nausea vomiting fevers or chills. States he is feeling better and there is reduced pain to the RLE. He would like to go home. Objective Vital Signs Date Time Temp Pulse Resp B/P (MAP) Pulse Ox O2 Delivery O2 Flow Rate FiO2 10/26/17 04:00 Room Air 10/26/17 00:00 Room Air 10/25/17 19:45 Room Air 10/25/17 16:00 70 10/25/17 12:00 70 10/25/17 12:00 97.9 71 20 157/91 (113) 97 10/25/17 08:00 66 10/25/17 08:00 97.2 70 20 140/70 (93) 92 10/25/17 07:26 Room Air I/O 10/25/17 10/25/17 10/25/17 10/26/17 10/26/17 10/26/17 07:00 15:00 23:00 07:00 15:00 23:00 Intake Total 650 ml 1125 ml Output Total 2000 ml 825 ml Balance -1350 ml 300 ml Intake Oral 650 ml 600 ml IV Total 525 ml Output Urine Total 2000 ml 825 ml # Bowel Movements 0 1 Result Diagram: 10/23/17 0629 10/25/17 1030 Imaging Last Impressions Carotid Artery Ultrasound 10/22/17 0000 Signed Impressions: Service Date/Time: Sunday, October 22, 2017 19:07 - CONCLUSION: 1. Minimal atherosclerotic plaquing at the left carotid bifurcation. 2. Otherwise, no focal high-grade or hemodynamically significant stenosis is demonstrated. Andre Harmon MD Bone Scan Nuclear Medicine 10/22/17 0000 Signed Impressions: Service Date/Time: Sunday, October 22, 2017 09:07 - CONCLUSION: Abnormal scan appearance as above, however low suspicion of osteomyelitis based upon findings as discussed. Phil Dao MD Aorta w/Runoff CTA 10/22/17 0000 Signed Impressions: Service Date/Time: Sunday, October 22, 2017 20:01 - CONCLUSION: Technically limited examination with no definite evidence of significant inflow disease or femoropopliteal disease. Calf vessel and/or small vessel disease is not excludable in this patient. Phil Dao MD Foot MRI 10/21/17 0000 Signed Impressions: Service Date/Time: Saturday, October 21, 2017 09:21 - CONCLUSION: 1. Soft tissue swelling involving the dorsum of the right forefoot suggestive of diffuse cellulitis. There is also swelling of the tip of the second digit. Some edema is noted involving the second distal phalanx although examination of this area of the foot is somewhat limited due to the position of the phalanges. If there is strong clinical concern for osteomyelitis involving the second distal phalanx three-phase bone scan or white blood cell scan may be useful for further evaluation. 2. Focal edema involving the peroneal tubercle of the calcaneus as well as increased signal within the peroneus longus tendon suggestive of tendinopathy/tenosynovitis. 1. Jose F Albert MD Lower Extremity Ultrasound 10/20/170 Signed Impressions: Service Date/Time: Friday, October 20, 2017 11:47 - CONCLUSION: Negative for deep venous thrombosis. Inguinal lymph nodes. Andriy Ivory MD FACR Chest X-Ray 10/20/170 Signed Impressions: Service Date/Time: Friday, October 20, 2017 11:58 - CONCLUSION: 1. Cardiomegaly. 2. No focal infiltrate or pulmonary vascular congestion. Jose F Albert MD Liver Ultrasound 10/20/17 0000 Signed Impressions: Service Date/Time: Friday, October 20, 2017 13:47 - CONCLUSION: 1. Cholelithiasis 2. Echogenic liver compatible with fatty infiltration or hepatocellular disease. 3. Splenomegaly Al Jhaveri MD Foot X-Ray 10/20/17 0000 Signed Impressions: Service Date/Time: Friday, October 20, 2017 15:43 - CONCLUSION: Osteopenia with degenerative changes. No osteomyelitis. Andriy Ivory MD FACR Other Results Laboratory Tests Test 10/25/17 10:30 Creatinine 0.65 MG/DL Estimat Glomerular Filtration Rate 151 ML/MIN Objective Remarks Lower extremity physical exam: Vascular: Dorsalis pedis nonpalpable secondary to edema, posterior tibial nonpalpable secondary to edema RLE. Capillary refill time within normal limits to digits 5 bilateral foot. Edema present right foot lower extremity with pitting noted continued improvement noted in edema. Neuro: Gross sensation intact to bilateral lower extremity. Pinpoint sensation decreased. No hyperalgesia noted to bilateral lower extremity Dermatology: Venous leg ulcers improved and resolving. New anterior ankle eschar noted of concern. Second digit distal tip ulcer resolving, (-) probe to bone, Epithelization present. No crepitus or fluctuance noted. Musculoskeletal: Tender to palpation to right lower extremity. Hammertoes noted to right foot 2 through 5 RLE. Medications and IVs Current Medications Medications (Trade) Dose Ordered Sig/Rachel Route Start Time Stop Time Status Last Admin Pharmacy Profile Note 0 ml @ 0 mls/hr UNSCH OTHER 10/20/17 13:30 (NS Flush) 2 ml UNSCH PRN IV FLUSH 10/20/17 13:30 (NS Flush) 2 ml BID IV FLUSH 10/20/17 21:00 10/25/17 21:00 (Zofran Inj) 4 mg Q6H PRN IVP 10/20/17 13:30 (Heparin Inj) 5,000 units Q12H SQ 10/20/17 14:00 10/26/17 02:00 (Narcan Inj) 0.4 mg UNSCH PRN IV PUSH 10/20/17 13:30 (Milk Of Magnesia Liq) 30 ml Q12H PRN PO 10/20/17 13:30 (Senokot) 17.2 mg Q12H PRN PO 10/20/17 13:30 (Dulcolax Supp) 10 mg DAILY PRN RECTAL 10/20/17 13:30 (Lactulose Liq) 30 ml DAILY PRN PO 10/20/17 13:30 (Romazicon Inj) 0.2 mg Q1M PRN IV PUSH 10/20/17 15:15 (Ativan) 1 mg Q4H PRN PO 10/20/17 15:15 (Ativan Inj) 1 mg Q4H PRN IV PUSH 10/20/17 15:15 (Ativan) 2 mg Q2H PRN PO 10/20/17 15:15 (Ativan Inj) 2 mg Q2H PRN IV PUSH 10/20/17 15:15 (Ativan Inj) 2 mg Q1H PRN IV PUSH 10/20/17 15:15 (Ativan Inj) 2 mg Q15M PRN IV PUSH 10/20/17 15:15 (Folate) 1 mg DAILY PO 10/21/17 09:00 10/26/17 08:59 10/25/17 08:25 (Vitamin B1) 100 mg DAILY PO 10/21/17 09:00 10/25/17 08:25 (Theragran M Tab) 1 tab DAILY PO 10/21/17 09:00 10/26/17 08:59 10/25/17 08:25 (Morphine Inj) 1 mg Q3H PRN IV PUSH 10/21/17 09:30 (Ultram) 50 mg Q4H PRN PO 10/21/17 09:30 (Ultram) 100 mg Q4H PRN PO 10/21/17 09:30 10/22/17 12:12 Vancomycin HCl 2500 mg/Sodium Chloride 525 ml @ 250 mls/hr Q12H IV 10/22/17 18:00 10/25/17 17:30 (Levaquin) 750 mg DAILY PO 10/23/17 18:00 10/25/17 08:25 (Ecotrin Ec) 81 mg DAILY PO 10/25/17 09:00 10/25/17 08:25 Assessment and Plan Assessment and Plan 62-year-old male with right lower extremity cellulitis with venous leg wounds resolving, right second digit ulcer now resolving; New anterior ankle ulcer with surrounding erythema Patient examined and evaluated Concern for new anterior ankle ulcer with eschar now present Will revaluate today and recommend wound care dressings Will draw CBC Patient will need home health care follow up will place orders RLE dressed with optilock foam and LEIA as Unnaboot placement/pressure to anterior ankle may cause wound to worsen No planned vascular intervention Monica Dwyer DPM Oct 26, 2017 06:31
[2017-10-26] MEDS: LEVOFLOXACIN 750 MG TAB PO SCH (08:33)
[2017-10-26] MEDS: THIAMINE HCL 100 MG TAB PO SCH (08:33)
[2017-10-26] MEDS: ASPIRIN EC 81 MG TABEC PO SCH (08:33)
[2017-10-26] MEDS: SODIUM CHLORIDE 0.9% FLUSH 10 ML FLUSH IV FLUSH SCH ×2 (08:34→21:00)
--- NOTE | 2017-10-26 10:14 | HHI.FF ---
Face to Face Verification Diagnosis: (1) Sepsis affecting skin Home Health Nursing Order: Medical education Wound care and dressing changes (per podiatry) I have seen patient Denny Lanier on 10/26/17. My clinical findings support the need for the requested home health care services because: Deconditioned w/ increased weakness I certify that my clinical findings support that this patient is homebound because: Unsafe to leave home unassisted Roshan Serrano MD Oct 26, 2017 10:14
[2017-10-26] MEDS ORDERED: WALKER WHEELS/F1 MIS (11:20)
--- NOTE | 2017-10-26 14:28 | HHI.PR ---
Subjective Remarks Follow-up right lower extremity infection. Patient has no new complaints. Discussed with nursing, podiatry wants to give patient another day to follow-up new wound over right ankle Objective Vitals Vital Signs Date Time Temp Pulse Resp B/P (MAP) Pulse Ox O2 Delivery O2 Flow Rate FiO2 10/26/17 12:00 75 10/26/17 08:00 98.1 75 20 153/72 (99) 99 10/26/17 08:00 60 10/26/17 07:19 Room Air 10/26/17 04:00 Room Air 10/26/17 04:00 98.6 70 18 139/79 (99) 97 10/26/17 04:00 63 10/26/17 00:00 Room Air 10/26/17 00:00 98.4 75 18 135/74 (94) 96 10/26/17 00:00 70 10/25/17 20:00 69 10/25/17 20:00 98.0 87 18 157/78 (104) 97 10/25/17 19:45 Room Air 10/25/17 16:00 70 I/O 10/25/17 10/25/17 10/25/17 10/26/17 10/26/17 10/26/17 07:00 15:00 23:00 07:00 15:00 23:00 Intake Total 650 ml 1125 ml 950 ml Output Total 2000 ml 825 ml 1840 ml Balance -1350 ml 300 ml -890 ml Intake Oral 650 ml 600 ml 950 ml IV Total 525 ml Output Urine Total 2000 ml 825 ml 1840 ml # Bowel Movements 0 1 0 Result Diagram: 10/23/17 0629 10/25/17 1030 Objective Remarks GENERAL: This is a well-nourished, well-developed patient, in no apparent distress. Alert and oriented 3. SKIN: No rashes, ecchymoses or lesions. Cool and dry. CARDIOVASCULAR: Regular rate and rhythm without murmurs, gallops, or rubs. RESPIRATORY: Clear to auscultation. Breath sounds equal bilaterally. No wheezes , rales, or rhonchi. GASTROINTESTINAL: Abdomen soft, non-tender, nondistended. No guarding. MUSCULOSKELETAL: Extremities without clubbing, cyanosis.No joint tenderness, effusion. No calf tenderness. Negative Homans sign bilaterally. Improving cellulitis extending to right lateral thigh, looks stable. Right leg with unna boot NEUROLOGICAL: Awake and alert. Cranial nerves II through XII intact. Motor and sensory grossly within normal limits. Five out of 5 muscle strength in all muscle groups. Normal speech. Procedures none A/P Problem List: (1) Sepsis affecting skin ICD Code: A41.9 - Sepsis, unspecified organism Status: Acute Assessment and Plan Sepsis with right lower extremity cellulitis and ulcer right 2nd toe. Improving -Continue IV vancomycin and p.o. Levaquin status post aztreonam. Penicillin allergy noted. Follow-up blood cultures negative to date. MRI noted. Bone scan with low suspicion for osteomyelitis. Wound care per Podiatry who requested close follow-up of new wound over right ankle. Consulted infectious disease Abnormal [place]. Vascular surgery consulted, no intervention needed. Continue antiplatelet Transaminitis, hyperbilirubinemia secondary to chronic alcoholism. Patient has been counseled. Chronic alcoholism.-Patient reports drinking several beers every other day. Denies withdrawal. Counselled Hyponatremia. Sodium 134. Likely secondary to chronic alcoholism, liver disease. Continue to monitor. Hypokalemia. Improving replace as needed. Continue to monitor. DVT proph with heparin Discharge Planning Possible discharge in the morning Roshan Serrano MD Oct 26, 2017 14:28
[2017-10-26 16:00] LABS: AUTOMATED NEUTROPHIL # 4.7 TH/MM3 (1.8-7.7); BASOPHIL % 0.7 % (0.0-2.0); EOSINOPHIL # 0.1 TH/MM3 (0-0.4); EOSINOPHIL % 1.1 % (0.0-4.0); HEMATOCRIT 36.4 % (39.0-51.0); HEMOGLOBIN 12.3 GM/DL (13.0-17.0); LYMPHOCYTE # 1.3 TH/MM3 (1.0-4.8); MEAN CELL VOLUME 93.5 FL (80.0-100.0); MEAN CORPUSCULAR HEMOGLOBIN 31.5 PG (27.0-34.0); MEAN CORPUSCULAR HGB CONC 33.7 % (32.0-36.0); MONO % 9.4 % (0.0-8.0); MONOCYTE # 0.6 TH/MM3 (0-0.9); NEUT % 69.8 % (16.0-70.0); PLATELET COUNT 251 TH/MM3 (150-450); RED BLOOD COUNT 3.89 MIL/MM3 (4.50-5.90); RED CELL DISTRIBUTION WIDTH 14.4 % (11.6-17.2); WHITE BLOOD COUNT 6.8 TH/MM3 (4.0-11.0)
[2017-10-27] VITALS (7 sets, daily range): BP systolic 148–156; BP diastolic 70–83; PULSE 61–90; RESP 20; TEMP 98.4–98.8; O2SAT 97–99
[2017-10-27] MEDS: HEPARIN SODIUM - SQ 10,000 UNITS/ML VIAL SQ SCH ×2 (02:39→17:11)
[2017-10-27] MEDS: VANCOMYCIN INJ 2,500 MG in SODIUM CHLORID 0.9% 500 ML INJ 500 ML IV SCH (06:00)
--- NOTE | 2017-10-27 07:01 | HHI.PR ---
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 Denies any nausea vomiting fevers or chills. Reports no pain to right lower extremity Objective Vital Signs Date Time Temp Pulse Resp B/P (MAP) Pulse Ox O2 Delivery O2 Flow Rate FiO2 10/27/17 04:00 98.4 69 20 148/83 (104) 97 10/27/17 04:00 65 10/27/17 00:00 98.7 76 20 148/83 (104) 97 10/27/17 00:00 72 10/27/17 00:00 Room Air 10/26/17 20:00 82 10/26/17 20:00 98.7 80 20 148/88 (108) 98 10/26/17 20:00 Room Air 10/26/17 16:19 75 10/26/17 16:00 99.2 76 20 140/72 (94) 96 10/26/17 12:00 97.7 75 20 167/88 (114) 96 10/26/17 12:00 75 10/26/17 08:00 98.1 75 20 153/72 (99) 99 10/26/17 08:00 60 10/26/17 07:19 Room Air I/O 10/26/17 10/26/17 10/26/17 10/27/17 10/27/17 10/27/17 07:00 15:00 23:00 07:00 15:00 23:00 Intake Total 950 ml 520 ml 1005 ml Output Total 1840 ml 1175 ml Balance -890 ml 520 ml -170 ml Intake Oral 950 ml 480 ml IV Total 520 ml 525 ml Output Urine Total 1840 ml 1175 ml # Bowel Movements 0 1 Result Diagram: 10/26/17 1426 10/25/17 1030 Imaging Last Impressions Carotid Artery Ultrasound 10/22/17 0000 Signed Impressions: Service Date/Time: Sunday, October 22, 2017 19:07 - CONCLUSION: 1. Minimal atherosclerotic plaquing at the left carotid bifurcation. 2. Otherwise, no focal high-grade or hemodynamically significant stenosis is demonstrated. Andre Harmon MD Bone Scan Nuclear Medicine 10/22/17 0000 Signed Impressions: Service Date/Time: Sunday, October 22, 2017 09:07 - CONCLUSION: Abnormal scan appearance as above, however low suspicion of osteomyelitis based upon findings as discussed. Phil Dao MD Aorta w/Runoff CTA 10/22/17 0000 Signed Impressions: Service Date/Time: Sunday, October 22, 2017 20:01 - CONCLUSION: Technically limited examination with no definite evidence of significant inflow disease or femoropopliteal disease. Calf vessel and/or small vessel disease is not excludable in this patient. Phil Dao MD Foot MRI 10/21/17 0000 Signed Impressions: Service Date/Time: Saturday, October 21, 2017 09:21 - CONCLUSION: 1. Soft tissue swelling involving the dorsum of the right forefoot suggestive of diffuse cellulitis. There is also swelling of the tip of the second digit. Some edema is noted involving the second distal phalanx although examination of this area of the foot is somewhat limited due to the position of the phalanges. If there is strong clinical concern for osteomyelitis involving the second distal phalanx three-phase bone scan or white blood cell scan may be useful for further evaluation. 2. Focal edema involving the peroneal tubercle of the calcaneus as well as increased signal within the peroneus longus tendon suggestive of tendinopathy/tenosynovitis. 1. Jose F Albert MD Lower Extremity Ultrasound 10/20/17 1130 Signed Impressions: Service Date/Time: Friday, October 20, 2017 11:47 - CONCLUSION: Negative for deep venous thrombosis. Inguinal lymph nodes. Andriy Ivory MD FACR Chest X-Ray 10/20/17 1130 Signed Impressions: Service Date/Time: Friday, October 20, 2017 11:58 - CONCLUSION: 1. Cardiomegaly. 2. No focal infiltrate or pulmonary vascular congestion. Jose F Albert MD Liver Ultrasound 10/20/17 0000 Signed Impressions: Service Date/Time: Friday, October 20, 2017 13:47 - CONCLUSION: 1. Cholelithiasis 2. Echogenic liver compatible with fatty infiltration or hepatocellular disease. 3. Splenomegaly Al Jhaveri MD Foot X-Ray 10/20/17 0000 Signed Impressions: Service Date/Time: Friday, October 20, 2017 15:43 - CONCLUSION: Osteopenia with degenerative changes. No osteomyelitis. Andriy Ivory MD FACR Other Results Microbiology Date/Time Source Procedure Growth Status 10/20/17 11:45 Blood Peripheral Aerobic Blood Culture - Final NO GROWTH IN 5 DAYS Complete 10/20/17 11:45 Blood Peripheral Anaerobic Blood Culture - Final NO GROWTH IN 5 DAYS Complete Objective Remarks Lower extremity physical exam: Vascular: Dorsalis pedis nonpalpable secondary to edema, posterior tibial nonpalpable secondary to edema RLE. Capillary refill time within normal limits to digits 5 bilateral foot. Edema present right foot lower extremity; continued improvement noted in edema. Neuro: Gross sensation intact to bilateral lower extremity. Pinpoint sensation decreased. No hyperalgesia noted to bilateral lower extremity Dermatology: Venous leg ulcers improved and resolved. New anterior ankle eschar noted of concern, eschar located to into ankle with some rounding red beefy border. Second digit distal tip ulcer healed/resolved. Epithelization present. No crepitus or fluctuance noted. Musculoskeletal: Tender to palpation to right lower extremity. Hammertoes noted to right foot 2 through 5 RLE. Medications and IVs Current Medications Medications (Trade) Dose Ordered Sig/Rachel Route Start Time Stop Time Status Last Admin Pharmacy Profile Note 0 ml @ 0 mls/hr UNSCH OTHER 10/20/17 13:30 (NS Flush) 2 ml UNSCH PRN IV FLUSH 10/20/17 13:30 (NS Flush) 2 ml BID IV FLUSH 10/20/17 21:00 10/26/17 21:00 (Zofran Inj) 4 mg Q6H PRN IVP 10/20/17 13:30 (Heparin Inj) 5,000 units Q12H SQ 10/20/17 14:00 10/27/17 02:39 (Narcan Inj) 0.4 mg UNSCH PRN IV PUSH 10/20/17 13:30 (Milk Of Magnesia Liq) 30 ml Q12H PRN PO 10/20/17 13:30 (Senokot) 17.2 mg Q12H PRN PO 10/20/17 13:30 (Dulcolax Supp) 10 mg DAILY PRN RECTAL 10/20/17 13:30 (Lactulose Liq) 30 ml DAILY PRN PO 10/20/17 13:30 (Romazicon Inj) 0.2 mg Q1M PRN IV PUSH 10/20/17 15:15 (Ativan) 1 mg Q4H PRN PO 10/20/17 15:15 (Ativan Inj) 1 mg Q4H PRN IV PUSH 10/20/17 15:15 (Ativan) 2 mg Q2H PRN PO 10/20/17 15:15 (Ativan Inj) 2 mg Q2H PRN IV PUSH 10/20/17 15:15 (Ativan Inj) 2 mg Q1H PRN IV PUSH 10/20/17 15:15 (Ativan Inj) 2 mg Q15M PRN IV PUSH 10/20/17 15:15 (Vitamin B1) 100 mg DAILY PO 10/21/17 09:00 10/26/17 08:33 (Morphine Inj) 1 mg Q3H PRN IV PUSH 10/21/17 09:30 (Ultram) 50 mg Q4H PRN PO 10/21/17 09:30 (Ultram) 100 mg Q4H PRN PO 10/21/17 09:30 10/22/17 12:12 Vancomycin HCl 2500 mg/Sodium Chloride 525 ml @ 250 mls/hr Q12H IV 10/22/17 18:00 10/27/17 06:00 (Levaquin) 750 mg DAILY PO 10/23/17 18:00 10/26/17 08:33 (Ecotrin Ec) 81 mg DAILY PO 10/25/17 09:00 10/26/17 08:33 Miscellaneous Information SPECIFIC LAB TO BE ... ONCE ONCE .XX 10/28/17 05:45 10/28/17 05:46 Assessment and Plan Assessment and Plan 62-year-old male with right lower extremity cellulitis with venous leg wounds resolving, right second digit ulcer now resolving; New anterior ankle ulcer with surrounding erythema Patient examined and evaluated Concern for new anterior ankle ulcer with eschar now present - white count continued to trend down Wound care orders will be placed as well as wound care orders for DC Patient will need close follow-up and he is to follow up in 1 week in my office Recommend home health - will place orders for home health Right lower extremity dressed by nurse - nurse present at bedside for exam No planned vascular intervention Monica Dwyer DPM Oct 27, 2017 07:01
[2017-10-27] MEDS: LEVOFLOXACIN 750 MG TAB PO SCH (08:53)
[2017-10-27] MEDS: ASPIRIN EC 81 MG TABEC PO SCH (08:53)
[2017-10-27] MEDS: SODIUM CHLORIDE 0.9% FLUSH 10 ML FLUSH IV FLUSH SCH (08:53)
[2017-10-27] MEDS: THIAMINE HCL 100 MG TAB PO SCH (08:53)
[2017-10-27] MEDS ORDERED: COLLAGENASE OINT 30 GM TUBE TOPICAL SCH (09:00)
[2017-10-27 09:17] LABS: CREATININE 0.59 MG/DL (0.60-1.30)
--- NOTE | 2017-10-27 10:34 | PD.CAR.PN ---
CVT Progress Note Subjective/Hospital Course: Referral received Full consult EVAN Billings 10/24/2017 Patient with gangrene of the second toe chronic venous stasis and venous insufficiency as well as anasarca CTA was performed but the quality of this is poor due to non-penetration of the contrast distally so no conclusion can be made as to the degree of peripheral vascular disease in this gentleman Have discussed this with radiology and study will be repeated considering that patient probably has significant degree of vascular changes especially distally below the level of the knee 10/25/2017 Patient with chronic venous stasis insufficiency and degenerative changes of the soft tissues below the knee including gangrene of the second toe Based on clinical exam patient does not have inflow disease and all the changes are below the level of the knee CTA is performed but this poor quality study due to delay in flow of the contrast distally and therefore of limited utility Nonetheless, at this point I do not believe it is worth repeating the study because what I can see is that patient does not have an inflow disease problem and all the changes are below the level of the knee and are limited to the small vessels which are not addressable by any surgical or endovascular intervention at this time Therefore at this point patient will not be a surgical candidate and should be managed conservatively. Objective: Vital Signs Date Time Temp Pulse Resp B/P (MAP) Pulse Ox O2 Delivery O2 Flow Rate FiO2 10/27/17 04:00 98.4 69 20 148/83 (104) 97 10/27/17 04:00 65 10/27/17 00:00 98.7 76 20 148/83 (104) 97 10/27/17 00:00 72 10/27/17 00:00 Room Air 10/26/17 20:00 82 10/26/17 20:00 98.7 80 20 148/88 (108) 98 10/26/17 20:00 Room Air 10/26/17 16:19 75 10/26/17 16:00 99.2 76 20 140/72 (94) 96 10/26/17 12:00 97.7 75 20 167/88 (114) 96 10/26/17 12:00 75 Labs: Laboratory Tests Test 10/27/17 07:10 Creatinine 0.59 MG/DL (0.60-1.30) Estimat Glomerular Filtration Rate 169 ML/MIN (>89) Result Diagram: 10/26/17 1426 10/27/17 0710 Alda Lorenzo MD Oct 27, 2017 10:34
--- NOTE | 2017-10-27 12:36 | HHI.IDPN ---
Note Infectious Disease Note Patient without complaints. No distress. Afebrile. 62-year-old black male who presented to the emergency department on 10/20/2017 with edema of his right lower extremity. The patient reportedly developed swelling of the right lower extremity with weeping of clear fluid. He was on Lasix up until about a month ago when he said he ran out of his insurance through the patient assistance and could not afford the medications and therefore stopped using medicines for about that period of time. PAST MEDICAL HISTORY 1. Hypertension. 2. Right knee tendon surgery. ALLERGIES PENICILLIN. MEDICATIONS 1. Vancomycin. 2. Levaquin. PHYSICAL EXAMINATION GENERAL: No acute distress. HEAD, EARS, NOSE AND THROAT: The head is atraumatic. Extraocular movements grossly intact. Pupils reactive to light without icterus. Oropharynx - The patient has partial dentures. NECK: Supple. No adenopathy. LUNGS: Clear breath sounds. HEART: Regular S1 and S2, without murmurs, rubs or gallops. ABDOMEN: Bowel sounds present. Soft. EXTREMITIES: The right hip no longer has induration. Erythema has resolved. The right leg has dried flaky skin cracked skin with superficial necrosis at the right ankle instep. The right second toe has necrotic, dried skin at the tuft. No visible drainage. SKIN: No diffuse rash. NEUROLOGIC: Nonfocal site. PSYCH: Calm, pleasant and cooperative. IMPRESSION 1. Cellulitis of the right hip. Improved. 2. Dried ulcerated wounds of the right tibia and open ulcerated wound at the r. ankle. R. second toe ulcer. 3. Right second toe wound without osteomyelitis. 4. Leukocytosis improved. RECOMMENDATIONS 1. Stop vancomycin. 2. Stop levaquin. Can discharge with Doxycycline 100mg PO bid x 10 days. Sylvester Jordan MD Oct 27, 2017 12:36
[2017-10-27] MEDS ORDERED: DOXY100C PO (12:44)
[2017-10-27] MEDS ORDERED: DOXYCYCLINE HYCLATE 100 MG CAP PO SCH (13:00)
--- NOTE | 2017-10-27 13:53 | HHI.DS ---
Discharge Summary Admission Date Oct 20, 2017 at 13:21 Discharge Date: Oct 27, 2017 Admitting Diagnosis Cellulitis/Sepsis (1) Sepsis affecting skin ICD Code: A41.9 - Sepsis, unspecified organism Diagnosis: Principal Status: Acute Procedures none Brief History - From Admission 62-year-old with hypertension, who presents with a several week history of worsening right lower extremity edema, erythema. He denies any fevers, chills, denies any pain. Says he otherwise feels fine. He says he came into the hospital because all his friends keep telling him that he needs to get this checked out. Patient reports right lower extremity edema which has been going on for many years, which she controls with water pills. Patient reports running out of his water pill one month ago. CBC/BMP: 10/26/17 1426 10/27/17 0710 Significant Findings Laboratory Tests Test 10/25/17 10:30 10/26/17 06:00 10/26/17 14:26 10/27/17 07:10 Vancomycin Level Trough 13.9 MCG/ML (5.0-10.0) Red Blood Count 3.89 MIL/MM3 (4.50-5.90) Hemoglobin 12.3 GM/DL (13.0-17.0) Hematocrit 36.4 % (39.0-51.0) Monocytes (%) (Auto) 9.4 % (0.0-8.0) Creatinine 0.59 MG/DL (0.60-1.30) Imaging Last Impressions Carotid Artery Ultrasound 10/22/17 0000 Signed Impressions: Service Date/Time: Sunday, October 22, 2017 19:07 - CONCLUSION: 1. Minimal atherosclerotic plaquing at the left carotid bifurcation. 2. Otherwise, no focal high-grade or hemodynamically significant stenosis is demonstrated. Andre Harmon MD Bone Scan Nuclear Medicine 10/22/17 0000 Signed Impressions: Service Date/Time: Sunday, October 22, 2017 09:07 - CONCLUSION: Abnormal scan appearance as above, however low suspicion of osteomyelitis based upon findings as discussed. Phil Dao MD Aorta w/Runoff CTA 10/22/17 0000 Signed Impressions: Service Date/Time: Sunday, October 22, 2017 20:01 - CONCLUSION: Technically limited examination with no definite evidence of significant inflow disease or femoropopliteal disease. Calf vessel and/or small vessel disease is not excludable in this patient. Phil Dao MD Foot MRI 10/21/17 0000 Signed Impressions: Service Date/Time: Saturday, October 21, 2017 09:21 - CONCLUSION: 1. Soft tissue swelling involving the dorsum of the right forefoot suggestive of diffuse cellulitis. There is also swelling of the tip of the second digit. Some edema is noted involving the second distal phalanx although examination of this area of the foot is somewhat limited due to the position of the phalanges. If there is strong clinical concern for osteomyelitis involving the second distal phalanx three-phase bone scan or white blood cell scan may be useful for further evaluation. 2. Focal edema involving the peroneal tubercle of the calcaneus as well as increased signal within the peroneus longus tendon suggestive of tendinopathy/tenosynovitis. 1. Jose F Albert MD Lower Extremity Ultrasound 10/20/170 Signed Impressions: Service Date/Time: Friday, October 20, 2017 11:47 - CONCLUSION: Negative for deep venous thrombosis. Inguinal lymph nodes. Andriy Ivory MD FACR Chest X-Ray 10/20/171129 Signed Impressions: Service Date/Time: Friday, October 20, 2017 11:58 - CONCLUSION: 1. Cardiomegaly. 2. No focal infiltrate or pulmonary vascular congestion. Jose F Albert MD Liver Ultrasound 10/20/17 0000 Signed Impressions: Service Date/Time: Friday, October 20, 2017 13:47 - CONCLUSION: 1. Cholelithiasis 2. Echogenic liver compatible with fatty infiltration or hepatocellular disease. 3. Splenomegaly Al Jhaveri MD Foot X-Ray 10/20/17 0000 Signed Impressions: Service Date/Time: Friday, October 20, 2017 15:43 - CONCLUSION: Osteopenia with degenerative changes. No osteomyelitis. Andriy Ivory MD FACR PE at Discharge GENERAL: This is a well-nourished, well-developed patient, in no apparent distress. Alert and oriented 3. SKIN: No rashes, ecchymoses or lesions. Cool and dry. CARDIOVASCULAR: Regular rate and rhythm without murmurs, gallops, or rubs. RESPIRATORY: Clear to auscultation. Breath sounds equal bilaterally. No wheezes , rales, or rhonchi. GASTROINTESTINAL: Abdomen soft, non-tender, nondistended. No guarding. MUSCULOSKELETAL: Extremities without clubbing, cyanosis.No joint tenderness, effusion. No calf tenderness. Negative Homans sign bilaterally. Improving cellulitis extending to right lateral thigh, looks stable. Right leg with unna boot NEUROLOGICAL: Awake and alert. Cranial nerves II through XII intact. Motor and sensory grossly within normal limits. Five out of 5 muscle strength in all muscle groups. Normal speech. Hospital Course Sepsis with right lower extremity cellulitis and ulcer right 2nd toe. Sepsis resolved. Discussed with ID, switch to p.o. doxycycline for 10 days status post IV vancomycin, aztreonam and Levaquin. Penicillin allergy noted. Follow- up blood cultures negative to date. MRI noted. Bone scan with low suspicion for osteomyelitis. Wound care per Podiatry who requested close follow-up of new wound over right ankle. Wound daily dressing with Santyl and moist to dry dressing to right lower extremity with LEIA compression wraps to the knee Abnormal [place]. Vascular surgery consulted, no intervention needed. Continue antiplatelet Transaminitis, hyperbilirubinemia secondary to chronic alcoholism. Patient has been counseled. Chronic alcoholism.-Patient reports drinking several beers every other day. Denies withdrawal. Counselled Hyponatremia. Sodium 134. Likely secondary to chronic alcoholism, liver disease. Continue to monitor. Hypokalemia. Improving replace as needed. Continue to monitor. DVT proph with heparin No payor source for home care. Case management will attempt to arrange home care visiting nurse. Otherwise patient will follow up with podiatry and wound care clinic Pt Condition on Discharge: Good Discharge Disposition: Discharge Home Discharge Time: > 30 minutes Discharge Instructions DIET: Follow Instructions for: Heart Healthy Diet Activities you can perform: Regular-No Restrictions Activities to Avoid: Driving Follow up Referrals: Appointment for Follow Up @ [facility] with [facility] PCP Follow-up - 1 Week Podiatry - 1 Week Wound Care Clinic - 10/27/17 New Medications: Walker with Front Wheels (Walker with Front Wheels) 1 Mis Mis EA .XX DIRECTED, #[address] (Aspirin DR) 81 Mg Tabdr 81 MG PO DAILY for Prevent Blood Clot, #30 TAB Doxycycline Hyclate (Doxycycline Hyclate) 100 Mg Cap 100 MG PO BID for Infection, #20 CAP Thiamine HCl (Gnp Vitamin B-1) 100 Mg Tab 100 MG PO DAILY for Alcohol Detox, #30 TAB Tramadol (Ultram) 50 Mg Tab 100 MG PO Q6H PRN for PAIN SCALE 6 TO 10, #30 TAB Continued Medications: Hydrochlorothiazide (Hydrochlorothiazide) 12.5 Mg Cap 12.5 MG PO DAILY for 30 Days, CAP 3 Refills Lisinopril (Lisinopril) 40 Mg Tab 40 MG PO DAILY for Blood Pressure Management for 30 Days, TAB 0 Refills Roshan Serrano MD Oct 27, 2017 13:52
[2017-10-28] MEDS ORDERED: PHARMACY ORDERED LAB ONE (05:45)
== END 2017-10-27 18:45 | disposition home or self-care (01) | DRG 872 ==
LOC: NEPD 10:37 → NEDA 13:21 → N04B 14:30
PROVIDERS: ADMIT Family Medicine; ATTEND Family Medicine
DX: A41.9 Sepsis, unspecified organism (principal); I70.261 Atherosclerosis of native arteries of extremities with gangrene, right leg; E87.1 Hypo-osmolality and hyponatremia; K70.0 Alcoholic fatty liver; L97.519 Non-pressure chronic ulcer of other part of right foot with unspecified severity; L97.319 Non-pressure chronic ulcer of right ankle with unspecified severity; K75.9 Inflammatory liver disease, unspecified; L03.115 Cellulitis of right lower limb; I10 Essential (primary) hypertension; R06.82 Tachypnea, not elsewhere classified; R00.0 Tachycardia, unspecified; F10.20 Alcohol dependence, uncomplicated; R74.0 Nonspecific elevation of levels of transaminase and lactic acid dehydrogenase [LDH]; E87.6 Hypokalemia; I87.2 Venous insufficiency (chronic) (peripheral); I89.0 Lymphedema, not elsewhere classified; M85.871 Other specified disorders of bone density and structure, right ankle and foot; Z88.0 Allergy status to penicillin; Z91.19 Patient's noncompliance with other medical treatment and regimen
CPT/HCPCS: 71045; 73630; 73720; 75635; 76705; 78320; 78399; 80048; 80053; 80202; 80307; 81001; 82248; 82550; 82552; 82565; 83605; 83735; 83880; 84484; 85025; 85610; 85652; 85730; 87040; 93005; 93880; 93923; 93971; 96374; 96375; A9503; A9579; J1644; J1940; J3370; J3480; J7040; J7050; Q9967

== ENCOUNTER 2017-11-10 18:29 | Inpatient (IN) | payer SELFPAY ==
[~2017-11-10 18:29] MED LIST changes: +DOXY100C PO; +ECASA81 PO; +THIA100 PO; +TRAM50 PO; +WALKER WHEELS/F1 MIS
[2017-11-10 18:34] VITALS: BP 172/108; PULSE 93; RESP 16; TEMP 99.3; O2SAT 95
[2017-11-10 19:55] LABS: AUTOMATED NEUTROPHIL # 3.4 TH/MM3 (1.8-7.7); BASOPHIL # 0.1 TH/MM3 (0-0.2); BASOPHIL % 0.9 % (0.0-2.0); EOSINOPHIL # 0.2 TH/MM3 (0-0.4); EOSINOPHIL % 3.8 % (0.0-4.0); HEMATOCRIT 36.8 % (39.0-51.0); HEMOGLOBIN 12.5 GM/DL (13.0-17.0); LYMPHOCYTE # 1.9 TH/MM3 (1.0-4.8); MEAN CELL VOLUME 90.9 FL (80.0-100.0); MEAN CORPUSCULAR HGB CONC 34.1 % (32.0-36.0); MEAN PLATELET VOLUME 7.4 FL (7.0-11.0); MONOCYTE # 0.6 TH/MM3 (0-0.9); NEUT % 54.3 % (16.0-70.0); PLATELET COUNT 224 TH/MM3 (150-450); RED BLOOD COUNT 4.05 MIL/MM3 (4.50-5.90); RED CELL DISTRIBUTION WIDTH 13.7 % (11.6-17.2); WHITE BLOOD COUNT 6.2 TH/MM3 (4.0-11.0)
--- NOTE | 2017-11-10 19:55 | RADRPT ---
EXAM DATE/TIME: 11/10/2017 19:03 [facility] COMPARISON: No previous studies available for comparison. INDICATIONS : Right foot inflammation MEDICAL HISTORY : Hypertension. Liver Disease. Osteopenia right foot SURGICAL HISTORY : None. ENCOUNTER: Sequela ACUITY: 3 weeks PAIN SCORE: 6/10 LOCATION: Right Foot FINDINGS: Three view examination of the right foot demonstrates no soft tissue swelling, dislocation, or fractu re. The tarsal bones appear intact. The interphalangeal and metatarsophalangeal joints are intact. The calcaneus is intact. Bony mineralization is decreased. CONCLUSION: 1. Osteopenia. No acute fracture. Dada Cardona MD on November 10, 2017 at 19:53 Board Certified Radiologist. This report was verified electronically.
[2017-11-10 20:06] LABS: INTERNATIONAL NORMALIZED RATIO 1.3 RATIO
[2017-11-10 20:08] LABS: ALBUMIN 2.3 GM/DL (3.4-5.0); ALT (GPT) 21 U/L (12-78); AST (GOT) 28 U/L (15-37); BICARBONATE 28.4 MEQ/L (21.0-32.0); BLOOD UREA NITROGEN 9 MG/DL (7-18); CALCIUM 8.7 MG/DL (8.5-10.1); CHLORIDE 102 MEQ/L (98-107); GLUCOSE,RANDOM 89 MG/DL (74-106); SODIUM (NA) 137 MEQ/L (136-145)
[2017-11-10 20:09] LABS: CREATININE 0.81 MG/DL (0.60-1.30); GLOMERULAR FILTRATION RATE 117 ML/MIN (>89); TOTAL PROTEIN 8.9 GM/DL (6.4-8.2)
[2017-11-10 20:11] LABS: ALKALINE PHOSPHATASE 133 U/L (45-117); TOTAL BILIRUBIN ADULT 0.7 MG/DL (0.2-1.0)
[2017-11-10] MEDS ORDERED: HYDR12.56 PO (20:37)
[2017-11-10] MEDS ORDERED: LISI40TA PO (20:37)
[2017-11-10] MEDS ORDERED: AZTREONAM INJ 2,000 MG in SODIUM CHLORIDE 0.9% INJ 100 ML IV STA (20:46)
[2017-11-10] MEDS ORDERED: metroNIDAZOLE 500 MG INJ 100 ML IV STA (20:46)
--- NOTE | 2017-11-10 20:59 | PD ---
HPI Chief Complaint: Injury Time Seen by Provider: 20:31 Travel History International Travel<30 days: No Contact w/Intl Traveler<30days: No Traveled to known affect area: No History of Present Illness HPI 62-year-old male with PMH of HTN, chronic alcoholism with history of chronic wound to the right lower extremity presents to the ED for evaluation of same. Patient has been able to on the extremity. He endorses numbness, states that he does not have any pain in the extremity. He denies fever, chills, Z, vomiting chest pain, shortness of breath. Patient states that he saw his professor of communication arts, Dr. London today. She referred him to the ED for MRI, IV antibiotic therapy and admission. PFSH Past Medical History Cardiovascular Problems: Yes (HTN) High Cholesterol: Yes Diabetes: No (never been checked) Diminished Hearing: No Hepatitis: Yes (liver disease) Hypertension: Yes Tetanus Vaccination: Unknown Social History Alcohol Use: Yes (OCC) Tobacco Use: No Substance Use: No Allergies-Medications (Allergen,Severity, Reaction): Coded Allergies: penicillin G (Verified Allergy, Severe, Dizziness, 11/10/17) Reported Meds & Prescriptions Reported Meds & Active Scripts Active Walker with Front Wheels (Device) 1 Mis Mis Ea .XX DIRECTED Gnp Vitamin B-1 (Thiamine HCl) 100 Mg Tab 100 Mg PO DAILY Aspirin (Aspirin) 81 Mg Tabdr 81 Mg PO DAILY Reported Hydrochlorothiazide 12.5 Mg Tab 12.5 Mg PO DAILY Lisinopril 40 Mg Tab 40 Mg PO DAILY Review of Systems Except as stated in HPI: all other systems reviewed are Neg Physical Exam Narrative GENERAL: Well-nourished, well-developed pleasant male in no acute distress. SKIN: Focused skin assessment warm/dry. HEAD: Normocephalic. EYES: No scleral icterus. No injection or drainage. NECK: Supple, trachea midline. No JVD or lymphadenopathy. CARDIOVASCULAR: Regular rate and rhythm without murmurs, gallops, or rubs. RESPIRATORY: Breath sounds equal bilaterally. No accessory muscle use. GASTROINTESTINAL: Abdomen soft, non-tender, nondistended. MUSCULOSKELETAL: No cyanosis, or edema FOCUSED RIGHT LOWER EXTREMITY EXAM: Edema of the lower extremity to the mid barrios. Chronic, foul-smelling wounds with serosanguineous drainage of the second digit, heel and medial ankle. No warmth, no erythema noted. Patient has reduced sensation in the lower extremity. BACK: Nontender without obvious deformity. No CVA tenderness. Data Data Last Documented VS Vital Signs Date Time Temp Pulse Resp B/P (MAP) Pulse Ox O2 Delivery O2 Flow Rate FiO2 11/10/17 18:34 99.3 93 16 172/108 (129) 95 Orders Orders Complete Blood Count With Diff (11/10/17 18:36) Comprehensive Metabolic Panel (11/10/17 18:36) Coag Profile (11/10/17 18:36) Foot, Complete ([id number]) (11/10/17 ) Blood Culture (11/10/17 18:36) Westergren Sedimentation Rate (11/10/17 20:44) C-Reactive Protein (Crp) (11/10/17 20:44) Iv Access Insert/Monitor (11/10/17 20:46) Ecg Monitoring (11/10/17 20:46) Oximetry (11/10/17 20:46) Acetaminophen (Tylenol) (11/10/17 21:00) Vancomycin Inj (Vancomycin Inj) (11/10/17 21:00) Aztreonam Inj (Azactam Inj) (11/10/17 20:46) Metronidazole 500 Mg Inj (Flagyl 500 Mg (11/10/17 20:46) Consult Podiatry (11/10/17 ) Mri Lower Leg W/Wo Contrast (11/10/17 ) Admit Order (Ed Use Only) (11/10/17 21:16) Labs Laboratory Tests Test 11/10/17 19:30 White Blood Count 6.2 TH/MM3 Red Blood Count 4.05 MIL/MM3 Hemoglobin 12.5 GM/DL Hematocrit 36.8 % Mean Corpuscular Volume 90.9 FL Mean Corpuscular Hemoglobin 31.0 PG Mean Corpuscular Hemoglobin Concent 34.1 % Red Cell Distribution Width 13.7 % Platelet Count 224 TH/MM3 Mean Platelet Volume 7.4 FL Neutrophils (%) (Auto) 54.3 % Lymphocytes (%) (Auto) 31.0 % Monocytes (%) (Auto) 10.0 % Eosinophils (%) (Auto) 3.8 % Basophils (%) (Auto) 0.9 % Neutrophils # (Auto) 3.4 TH/MM3 Lymphocytes # (Auto) 1.9 TH/MM3 Monocytes # (Auto) 0.6 TH/MM3 Eosinophils # (Auto) 0.2 TH/MM3 Basophils # (Auto) 0.1 TH/MM3 CBC Comment AUTO DIFF Differential Comment AUTO DIFF CONFIRMED Prothrombin Time 13.0 SEC Prothromb Time International Ratio 1.3 RATIO Activated Partial Thromboplast Time 27.9 SEC Blood Urea Nitrogen 9 MG/DL Creatinine 0.81 MG/DL Random Glucose 89 MG/DL Total Protein 8.9 GM/DL Albumin 2.3 GM/DL Calcium Level 8.7 MG/DL Alkaline Phosphatase 133 U/L Aspartate Amino Transf (AST/SGOT) 28 U/L Alanine Aminotransferase (ALT/SGPT) 21 U/L Total Bilirubin 0.7 MG/DL Sodium Level 137 MEQ/L Potassium Level 3.3 MEQ/L Chloride Level 102 MEQ/L Carbon Dioxide Level 28.4 MEQ/L Anion Gap 7 MEQ/L Estimat Glomerular Filtration Rate 117 ML/MIN MDM Medical Decision Making Medical Screen Exam Complete: Yes Emergency Medical Condition: Yes Differential Diagnosis chronic foot wound versus osteomyelitis versus sepsis versus other Narrative Course 62-year-old male with PMH of HTN, chronic lower extremity wounds presents to the ED for evaluation of nonhealing wounds of the right lower extremity. He endorses reduced sensation in the area. He states that he had a failure of home health care which is lead to this visit. He saw his professor of communication arts today who sent him to the ED for admission. Patient afebrile on presentation. On physical exam he does have chronic wounds with serous sanguinous drainage, fell spell and edema of the right lower extremity. No warmth or erythema noted. IV was established. Patient was administered IV vancomycin, aztreonam and Flagyl. Routine MRI ordered. Podiatry consult placed. I discussed the patient with Dr. Barba who is to accept him to the medicine service. Please see podiatry and medicine notes for disposition. Jannette Cobos Nov 10, 2017 20:59
[2017-11-10] MEDS ORDERED: ACETAMINOPHEN 500 MG CPLT PO ONE (21:00)
[2017-11-10] MEDS ORDERED: VANCOMYCIN INJ 1,000 MG in SODIUM CHLOR 0.9% 250 ML INJ 250 ML IV ONE (21:00)
[2017-11-10] MEDS ORDERED: SODIUM CHLOR 0.9% 1000 ML INJ 1,000 ML IV SCH (21:17)
[2017-11-10 21:26] VITALS: BP 141/78; PULSE 79; RESP 16; O2SAT 99
[2017-11-10] MEDS ORDERED: MAGNESIUM HYDROXIDE SUSP 30 ML CUP PO PRN (21:30)
[2017-11-10] MEDS ORDERED: Vancomycin Consult Pharmacy 1 EA OTHER SCH (21:30)
[2017-11-10] MEDS ORDERED: SENNOSIDES 8.6 MG TAB PO PRN (21:30)
[2017-11-10] MEDS ORDERED: ACETAMINOPHEN 325 MG TAB PO PRN (21:30)
[2017-11-10] MEDS ORDERED: SODIUM CHLORIDE 0.9% FLUSH 10 ML FLUSH IV FLUSH PRN (21:30)
[2017-11-10] MEDS ORDERED: LACTULOSE SYRUP 20 GM/30 ML CUP PO PRN (21:30)
[2017-11-10] MEDS ORDERED: BISACODYL 10 MG SUPP RECTAL PRN (21:30)
[2017-11-10] MEDS ORDERED: ONDANSETRON HCL 4 MG/2 ML VIAL IVP PRN (21:30)
[2017-11-10] MEDS ORDERED: NALOXONE HCL 0.4 MG/ML AMP IV PUSH PRN (21:30)
[2017-11-10 21:49] VITALS: BP 141/78; PULSE 62; RESP 16; O2SAT 100
[2017-11-10] MEDS ORDERED: VANCOMYCIN 1,500 MG/NS 500 ML IV ONE ×2 (23:00)
--- NOTE | 2017-11-10 23:25 | HHI.HP ---
[facility] No Primary Care Physician Admission Diagnosis chronic wound RLE r/o osteomyelitis Diagnoses: Travel History International Travel<30 Days: No Contact w/Intl Traveler <30 Da: No Traveled to Known Affected Are: No History of Present Illness 62-year-old male with a past medical history significant for hypertension presents to the emergency department for evaluation of right lower extremity wounds. The patient reports he was sent by his dam tender assistant, Dr. Dwyer, for evaluation of a worsening right heel ulceration. The patient reports he is followed by his dam tender assistant and is supposed to have home health care come and change his dressings although secondary to lack of insurance this has not been arranged. The patient denies any fever/chills. Reports that he has been able to ambulate. Denies any associated pain. Review of Systems Except as stated in HPI: all other systems reviewed are Neg Denies fever or chills Denies blurry vision, otorrhea, rhinorrhea Denies sore throat and cough No chest pain, palpitations No shortness of breath or wheezing No abdominal pain Denies constipation/diarrhea/nausea/vomiting Denies muscle pain Denies focal weakness No rashes Past Family Social History Past Medical History Hypertension Past Surgical History Left wrist surgery Reported Medications Reported Meds & Active Scripts Active Walker with Front Wheels (Device) 1 Mis Mis Ea .XX DIRECTED Gnp Vitamin B-1 (Thiamine HCl) 100 Mg Tab 100 Mg PO DAILY Aspirin (Aspirin) 81 Mg Tabdr 81 Mg PO DAILY Reported Hydrochlorothiazide 12.5 Mg Tab 12.5 Mg PO DAILY Lisinopril 40 Mg Tab 40 Mg PO DAILY Allergies: Coded Allergies: penicillin G (Verified Allergy, Severe, Dizziness, 11/10/17) Family History Both parents with coronary artery disease. Social History Quit alcohol approximately 2 months ago. Denies tobacco and illicit drugs. Physical Exam Vital Signs Vital Signs Date Time Temp Pulse Resp B/P (MAP) Pulse Ox O2 Delivery O2 Flow Rate FiO2 11/10/17 22:25 11/10/17 21:49 62 16 141/78 (99) 100 Room Air 11/10/17 21:26 79 16 141/78 (99) 99 Room Air 11/10/17 18:34 99.3 93 16 172/108 (129) 95 Physical Exam GENERAL: male sitting up in bed SKIN: Multiple, foul smelling wounds with serosanguineous drainage on the plantar aspect of the heel, the second digit and the medial ankle. 2 additional ulcerations on the right barrios. HEAD: Atraumatic. Normocephalic. No temporal or scalp tenderness. EYES: Pupils equal round and reactive. Extraocular motions intact. No scleral icterus. No injection or drainage. ENT: Nose without bleeding, purulent drainage or septal hematoma. Throat without erythema, tonsillar hypertrophy or exudate. Uvula midline. Airway patent. NECK: Trachea midline. No JVD or lymphadenopathy. Supple, nontender, no meningeal signs. CARDIOVASCULAR: Regular rate and rhythm without murmurs, gallops, or rubs. RESPIRATORY: Clear to auscultation. Breath sounds equal bilaterally. No wheezes , rales, or rhonchi. GASTROINTESTINAL: Abdomen soft, non-tender, nondistended. No hepato-splenomegaly , or palpable masses. No guarding. MUSCULOSKELETAL: Right lower extremity with edema to the mid barrios. No calf tenderness. NEUROLOGICAL: Awake and alert. Cranial nerves II through XII intact. Motor and sensory grossly within normal limits. Normal speech. Laboratory Laboratory Tests Test 11/10/17 19:30 11/10/17 21:50 White Blood Count 6.2 Red Blood Count 4.05 Hemoglobin 12.5 Hematocrit 36.8 Mean Corpuscular Volume 90.9 Mean Corpuscular Hemoglobin 31.0 Mean Corpuscular Hemoglobin Concent 34.1 Red Cell Distribution Width 13.7 Platelet Count 224 Mean Platelet Volume 7.4 Neutrophils (%) (Auto) 54.3 Lymphocytes (%) (Auto) 31.0 Monocytes (%) (Auto) 10.0 Eosinophils (%) (Auto) 3.8 Basophils (%) (Auto) 0.9 Neutrophils # (Auto) 3.4 Lymphocytes # (Auto) 1.9 Monocytes # (Auto) 0.6 Eosinophils # (Auto) 0.2 Basophils # (Auto) 0.1 CBC Comment AUTO DIFF Differential Comment AUTO DIFF CONFIRMED Prothrombin Time 13.0 Prothromb Time International Ratio 1.3 Activated Partial Thromboplast Time 27.9 Blood Urea Nitrogen 9 Creatinine 0.81 Random Glucose 89 Total Protein 8.9 Albumin 2.3 Calcium Level 8.7 Alkaline Phosphatase 133 Aspartate Amino Transf (AST/SGOT) 28 Alanine Aminotransferase (ALT/SGPT) 21 Total Bilirubin 0.7 Sodium Level 137 Potassium Level 3.3 Chloride Level 102 Carbon Dioxide Level 28.4 Anion Gap 7 Estimat Glomerular Filtration Rate 117 Erythrocyte Sedimentation Rate 104 C-Reactive Protein 0.71 Date/Time Source Procedure Growth Status 11/10/17 19:25 Blood Peripheral Aerobic Blood Culture Pending Received 11/10/17 19:25 Blood Peripheral Anaerobic Blood Culture Pending Received Result Diagram: 11/10/17192911/10/171929 Caprini VTE Risk Assessment Caprini VTE Risk Assessment: Mod/High Risk (score >= 2) Caprini Risk Assessment Model Point Value = 1 Point Value = 2 Point Value = 3 Point Value = 5 Age 41-60 Minor surgery BMI > 25 kg/m2 Swollen legs Varicose veins or History of unexplained or recurrent spontaneous Oral contraceptives or hormone replacement Sepsis (< 1 month) Serious lung disease, including pneumonia (< 1 month) Abnormal pulmonary function Acute myocardial infarction Congestive heart failure (< 1 month) History of inflammatory bowel disease Medical patient at bed rest Age 61-74 Arthroscopic surgery Major open surgery (> 45 min) Laparoscopic surgery (> 45 min) Malignancy Confined to bed (> 72 hours) Immobilizing plaster cast Central venous access Age >= 75 History of VTE Family history of VTE Factor V Leiden Prothrombin [id number] Lupus anticoagulant Anticardiolipin antibodies Elevated serum homocysteine Heparin-induced thrombocytopenia Other congenital or acquired thrombophilia Stroke (< 1 month) Elective arthroplasty Hip, pelvis, or leg fracture Acute spinal cord injury (< 1 month) Prophylaxis Regimen Total Risk Factor Score Risk Level Prophylaxis Regimen 0-1 Low Early ambulation 2 Moderate Order ONE of the following: *Sequential Compression Device (SCD) *Heparin 5000 units SQ BID 3-4 Higher Order ONE of the following medications: *Heparin 5000 units SQ TID *Enoxaparin/Lovenox 40 mg SQ daily (WT < 150 kg, CrCl > 30 mL/min) *Enoxaparin/Lovenox 30 mg SQ daily (WT < 150 kg, CrCl > 10-29 mL/min) *Enoxaparin/Lovenox 30 mg SQ BID (WT < 150 kg, CrCl > 30 mL/min) AND/OR *Sequential Compression Device (SCD) 5 or more Highest Order ONE of the following medications: *Heparin 5000 units SQ TID (Preferred with Epidurals) *Enoxaparin/Lovenox 40 mg SQ daily (WT < 150 kg, CrCl > 30 mL/min) *Enoxaparin/Lovenox 30 mg SQ daily (WT < 150 kg, CrCl > 10-29 mL/min) *Enoxaparin/Lovenox 30 mg SQ BID (WT < 150 kg, CrCl > 30 mL/min) AND *Sequential Compression Device (SCD) Assessment and Plan Assessment and Plan Assessment/plan: 1. Right lower extremity cellulitis; cannot exclude osteomyelitis Aztreonam/Flagyl/vancomycin (patient allergic to penicillin) Foot x-ray shows osteopenia with no acute fracture, personally reviewed ESR elevated at 104 MRI pending Podiatry consulted, appreciate recommendations Wound care consulted 2. Hypertension Continue home lisinopril, hydrochlorothiazide FEN NPO Electrolytes: Status post by mouth repletion of potassium in the ED, monitor BMP Holding pharmacologic anticoagulation for possible intervention Berta Barba MD Nov 10, 2017 23:25
[2017-11-10] MEDS ORDERED: POTASSIUM CHLORIDE 20 MEQ CONTROLLED RELEASE TAB PO ONE (23:30)
[2017-11-11] MEDS: SODIUM CHLOR 0.9% 1000 ML INJ 1,000 ML IV SCH ×4 (00:36→23:55)
[2017-11-11] MEDS: AZTREONAM INJ 2,000 MG in SODIUM CHLORIDE 0.9% INJ 100 ML IV SCH ×4 (04:00→23:16)
[2017-11-11 04:50] VITALS: BP 162/79; PULSE 65; RESP 14; TEMP 97.8; O2SAT 99
[2017-11-11] MEDS: metroNIDAZOLE 500 MG INJ 100 ML IV SCH ×3 (05:13→23:16)
[2017-11-11 06:05] LABS: BICARBONATE 27.2 MEQ/L (21.0-32.0); CREATININE 0.59 MG/DL (0.60-1.30)
[2017-11-11 06:09] LABS: AUTOMATED NEUTROPHIL # 2.7 TH/MM3 (1.8-7.7); BASOPHIL # 0.1 TH/MM3 (0-0.2); BASOPHIL % 1.1 % (0.0-2.0); EOSINOPHIL # 0.3 TH/MM3 (0-0.4); EOSINOPHIL % 4.9 % (0.0-4.0); HEMATOCRIT 32.7 % (39.0-51.0); HEMOGLOBIN 11.2 GM/DL (13.0-17.0); LYMPH % 31.7 % (9.0-44.0); LYMPHOCYTE # 1.8 TH/MM3 (1.0-4.8); MEAN CELL VOLUME 90.7 FL (80.0-100.0); MEAN CORPUSCULAR HEMOGLOBIN 31.2 PG (27.0-34.0); MEAN CORPUSCULAR HGB CONC 34.4 % (32.0-36.0); MEAN PLATELET VOLUME 7.5 FL (7.0-11.0); MONO % 13.5 % (0.0-8.0); MONOCYTE # 0.8 TH/MM3 (0-0.9); NEUT % 48.8 % (16.0-70.0); PLATELET COUNT 175 TH/MM3 (150-450); RED CELL DISTRIBUTION WIDTH 13.8 % (11.6-17.2); WHITE BLOOD COUNT 5.6 TH/MM3 (4.0-11.0)
[2017-11-11] MEDS ORDERED: VANCOMYCIN INJ 1,000 MG in SODIUM CHLOR 0.9% 250 ML INJ 250 ML IV SCH (09:00)
[2017-11-11] MEDS ORDERED: GADODIAMIDE PF 287 MG/ML 5 ML VIAL (for RAD MRI) IVCONTRAST ONE (09:50)
[2017-11-11] MEDS: HYDROCHLOROTHIAZIDE 12.5 MG CAP PO SCH (10:04)
[2017-11-11] MEDS: LISINOPRIL 20 MG TAB PO SCH (10:04)
[2017-11-11] MEDS: DOCUSATE SODIUM 50 MG/SENNA 8.6 MG TAB PO SCH ×2 (10:05→23:16)
[2017-11-11] MEDS: SODIUM CHLORIDE 0.9% FLUSH 10 ML FLUSH IV FLUSH SCH ×2 (10:05→23:56)
--- NOTE | 2017-11-11 10:08 | RADRPT ---
EXAM DATE/TIME: 11/11/2017 09:02 [facility] COMPARISON: CTA RUNOFF W 3D RECON, October 22, 2017, 20:01. FOOT RIGHT COMPLETE ([id number]), November 10, 2017, 1 9:03. INDICATIONS : Osteomyelitis. Fluid leaking from small wound on anterior right lower leg. CONTRAST: 25 cc Omniscan (gadodiamide) IV MEDICAL HISTORY : Hypertension. SURGICAL HISTORY : Tonsillectomy. Left wrist. ENCOUNTER: Subsequent ACUITY: 1 week PAIN SCORE: 0/10 LOCATION: Right lower leg. TECHNIQUE: Multiplanar multisequence MRI examination of the lower leg was performed with and without contrast. FINDINGS: There is diffuse subcutaneous edema of the right leg. Along the anterolateral aspect there is a subcu taneous rim-enhancing fluid collection measuring approximately 6.4 x 1.2 cm and approximately 20.4 cm in craniocaudal dimension. It is located superficial to the anterior compartment. There is edema wit hin the anterior muscle compartment. However, no abnormal enhancement is seen. The tibia and fibula d emonstrate normal bone marrow signal without enhancement. No venous occlusion is seen. CONCLUSION: 1. There is a subcutaneous rim-enhancing fluid collection suspicious for abscess located along the an terolateral aspect of the proximal and mid leg measuring 6.4 x 1.2 x 20.4 cm. This collection is supe rficial to the anterior muscle compartment. There are no findings to indicate osteomyelitis. 2. Mild intramuscular and fascial edema within the anterior compartment muscles. Phil Villanueva MD on November 11, 2017 at 9:59 Board Certified Radiologist. This report was verified electronically.
[2017-11-11 11:15] VITALS: BP 153/83; PULSE 68; RESP 18; TEMP 97.7; O2SAT 99
[2017-11-11] MEDS: VANCOMYCIN INJ 2,500 MG in SODIUM CHLORID 0.9% 500 ML INJ 500 ML IV SCH (11:48)
--- NOTE | 2017-11-11 13:24 | HHI.PR ---
Subjective Remarks Patient reports he is feeling okay. Wondering when he will get around. Pain is controlled. Afebrile. Objective Vitals Vital Signs Date Time Temp Pulse Resp B/P (MAP) Pulse Ox O2 Delivery O2 Flow Rate FiO2 11/11/17 11:15 97.7 68 18 153/83 (106) 99 11/11/17 04:50 97.8 65 14 162/79 (106) 99 11/10/17 22:25 11/10/17 21:49 62 16 141/78 (99) 100 Room Air 11/10/17 21:26 79 16 141/78 (99) 99 Room Air 11/10/17 18:34 99.3 93 16 172/108 (129) 95 Result Diagram: 11/11/17 0520 11/11/17 0520 Objective Remarks GENERAL: This is a well-nourished, well-developed patient, in no apparent distress. SKIN: Foul smelling wounds draining over the right ankle and upper barrios. serosanguineous drainage on the plantar aspect of the heel, the second digit and the medial ankle. CARDIOVASCULAR: Normal rate and regular rhythm without murmurs, gallops, or rubs. RESPIRATORY: Good respiratory efforts. Breath sounds equal and clear to auscultation bilaterally. GASTROINTESTINAL: Abdomen soft, non-tender, non-distended. Normal active bowel sounds MUSCULOSKELETAL: Extremities without cyanosis, or edema. NEURO: Alert & Oriented x4 to person, place, time, situation. Moves all ext x4 PSYCH: Appropriate mood and affect. A/P Assessment and Plan 62-year-old male with: 1. Right lower extremity cellulitis; cannot exclude osteomyelitis Aztreonam/Flagyl/vancomycin (patient allergic to penicillin) Foot x-ray shows osteopenia with no acute fracture, personally reviewed ESR elevated at 104 MRI pending Podiatry consulted, appreciate recommendations Wound care consulted 2. Hypertension Continue home lisinopril, hydrochlorothiazide FEN NPO Electrolytes: Status post by mouth repletion of potassium in the ED, monitor BMP Holding pharmacologic anticoagulation for possible intervention Anaya Chapa MD Nov 11, 2017 13:23
[2017-11-11 14:23] VITALS: BP 150/78; PULSE 60; RESP 18; TEMP 97.7; O2SAT 99
[2017-11-11] MEDS ORDERED: GADODIAMIDE PF 287 MG/ML 20 ML VIAL (for RAD MRI) IV PUSH ONE (18:53)
[2017-11-11] MEDS ORDERED: GADODIAMIDE PF 287 MG/ML 5 ML VIAL (for RAD MRI) IV PUSH ONE (18:53)
--- NOTE | 2017-11-11 19:39 | RADRPT ---
EXAM DATE/TIME: 11/11/2017 18:27 [facility] COMPARISON: No previous studies available for comparison. INDICATIONS : Osteomyelitis. Osteomyelitis. Fluid leaking from small wound on anterior right lower leg. CONTRAST: 25 cc Omniscan (gadodiamide) IV MEDICAL HISTORY : Hypertension. SURGICAL HISTORY : Tonsillectomy. Left wrist. ENCOUNTER: Subsequent ACUITY: 1 week PAIN SCORE: 0/10 LOCATION: Right ankle. TECHNIQUE: Multiplanar, multisequence MRI examination was performed without contrast and after the intravenous a dministration of gadolinium. FINDINGS: There is extensive cellulitis as well as soft tissue enhancement involving the anterior compartment w ith a focal area of ulceration as well as tenosynovitis involving the extensor tendons. There is a sm all amount of fluid involving the tibiotalar and subtalar joint. The Achilles tendon and flexor tendo ns are intact. There is no evidence of abscess. CONCLUSION: 1. Extensive tenosynovitis and cellulitis involving the anterior compartment without evidence of oste omyelitis. Al Jhaveri MD on November 11, 2017 at 19:34 Board Certified Radiologist. This report was verified electronically.
[2017-11-11 19:52] VITALS: BP 158/83; PULSE 57; RESP 17; TEMP 98.7; O2SAT 98
--- NOTE | 2017-11-11 21:22 | PD.CONS ---
History of Present Illness Service Foot and ankle surgery/podiatry Consult Requested By Reason for Consult Right lower extremity anterior ankle ulcer with tendon exposed, right lower extremity infection Primary Care Physician No Primary Care Physician Diagnoses: History of Present Illness Podiatry consulted for this 62-year-old male with past medical history of hypertension for right anterior ankle ulcer. Patient was last seen in hospital and was encouraged to follow-up outpatient regardless of insurance status. Patient presented for his appointment on Friday 2 weeks status post discharge from hospital secondary to transportation issues with infected right lower extremity with exposed tendon. Upon in office debridement of right plantar posterior heel ulcer purulent drainage was noted. The patient was encouraged to proceed immediately to the ED for admission and IV antibiotics. Patient understands he will need to undergo surgical debridement for right lower extremity ulcer. Review of Systems Constitutional: DENIES: Fatigue, Fever Cardiovascular: DENIES: Chest pain, Claudication Musculoskeletal: DENIES: Joint pain, Muscle aches Neurologic: DENIES: Abnormal gait Psychiatric: DENIES: Anxiety, Confusion Past Family Social History Allergies: Coded Allergies: penicillin G (Verified Allergy, Severe, Dizziness, 11/10/17) Past Medical History As dictated in HPI Active Ordered Medications Current Medications Medications (Trade) Dose Ordered Sig/Rachel Route Start Time Stop Time Status Last Admin Pharmacy Profile Note 0 ml @ 0 mls/hr UNSCH OTHER 11/10/17 21:30 Metronidazole 100 ml @ 100 mls/hr Q8H IV 11/11/17 05:00 11/11/17 14:37 Aztreonam 2000 mg/ Sodium Chloride 100 ml @ 200 mls/hr Q6H IV 11/11/17 03:00 11/11/17 15:09 (NS Flush) 2 ml UNSCH PRN IV FLUSH 11/10/17 21:30 (NS Flush) 2 ml BID IV FLUSH 11/11/17 09:00 11/11/17 10:05 (Tylenol) 650 mg Q4H PRN PO 11/10/17 21:30 (Zofran Inj) 4 mg Q6H PRN IVP 11/10/17 21:30 (Narcan Inj) 0.4 mg UNSCH PRN IV PUSH 11/10/17 21:30 (Monika-Colace) 1 tab BID PO 11/11/17 09:00 (Milk Of Magnesia Liq) 30 ml Q12H PRN PO 11/10/17 21:30 (Senokot) 17.2 mg Q12H PRN PO 11/10/17 21:30 (Dulcolax Supp) 10 mg DAILY PRN RECTAL 11/10/17 21:30 (Lactulose Liq) 30 ml DAILY PRN PO 11/10/17 21:30 (Microzide) 12.5 mg DAILY PO 11/11/17 09:00 11/11/17 10:04 (Prinivil) 40 mg DAILY PO 11/11/17 09:00 11/11/17 10:04 Sodium Chloride 1,000 ml @ 125 mls/hr Q8H IV 11/10/17 23:30 11/11/17 15:09 Vancomycin HCl 2500 mg/Sodium Chloride 525 ml @ 250 mls/hr Q12H IV 11/11/17 12:00 11/11/17 11:48 Miscellaneous Information SPECIFIC LAB TO BE DRAWN:VANCO TROUGH DATE TO... ONCE ONCE .XX 11/12/17 11:45 11/12/17 11:46 Physical Exam Vital Signs Vital Signs Date Time Temp Pulse Resp B/P (MAP) Pulse Ox O2 Delivery O2 Flow Rate FiO2 11/11/17 19:52 98.7 57 17 158/83 (108) 98 11/11/17 14:23 97.7 60 18 150/78 (102) 99 11/11/17 11:15 97.7 68 18 153/83 (106) 99 11/11/17 04:50 97.8 65 14 162/79 (106) 99 11/10/17 22:25 11/10/17 21:49 62 16 141/78 (99) 100 Room Air 11/10/17 21:26 79 16 141/78 (99) 99 Room Air Physical Exam GENERAL: This is a well-nourished, well-developed patient, in no apparent distress. SKIN: Right anterior ankle ulcer HEAD: Atraumatic. EYES: Pupils equal round and reactive. ENT: Airway patent. NECK: Trachea midline. RESPIRATORY: Nonlabored breathing. MUSCULOSKELETAL:. Negative Homans sign bilaterally. NEUROLOGICAL: Awake and alert. Normal speech. Lower extremity physical exam: Vascular: Dorsalis pedis 1/4, posterior tibial diminished. Capillary refill time within normal limits to digits 5 bilateral foot. Edema present right lower extremity Neuro: Gross sensation intact to bilateral lower extremity. Pinpoint sensation decreased. No hyperalgesia noted to bilateral lower extremity Dermatology: Anterior ankle ulcer measuring approximately 12 cm x 6 cm encompassing entire anterior ankle with tibialis anterior tendon exposed and probed to bone, serous drainage noted with fibro-granular ulceration base. Anterior right lower extremity proximal tibia and draining sinus with serous drainage. Right second digit distal ulcer measuring 0.5 cm x 0.5 cm x 0.1 depth with no probe to bone no surrounding erythema. Musculoskeletal: No tenderness on palpation to right lower extremity. Hammertoes noted to right lower extremity 2 through 5. Laboratory Laboratory Tests Test 11/10/17 21:50 11/11/17 05:20 Erythrocyte Sedimentation Rate 104 C-Reactive Protein 0.71 White Blood Count 5.6 Red Blood Count 3.60 Hemoglobin 11.2 Hematocrit 32.7 Mean Corpuscular Volume 90.7 Mean Corpuscular Hemoglobin 31.2 Mean Corpuscular Hemoglobin Concent 34.4 Red Cell Distribution Width 13.8 Platelet Count 175 Mean Platelet Volume 7.5 Neutrophils (%) (Auto) 48.8 Lymphocytes (%) (Auto) 31.7 Monocytes (%) (Auto) 13.5 Eosinophils (%) (Auto) 4.9 Basophils (%) (Auto) 1.1 Neutrophils # (Auto) 2.7 Lymphocytes # (Auto) 1.8 Monocytes # (Auto) 0.8 Eosinophils # (Auto) 0.3 Basophils # (Auto) 0.1 CBC Comment AUTO DIFF Differential Comment AUTO DIFF CONFIRMED Blood Urea Nitrogen 8 Creatinine 0.59 Random Glucose 115 Calcium Level 8.0 Sodium Level 140 Potassium Level 3.5 Chloride Level 106 Carbon Dioxide Level 27.2 Anion Gap 7 Estimat Glomerular Filtration Rate 169 Date/Time Source Procedure Growth Status 11/10/17 19:25 Blood Peripheral Aerobic Blood Culture - Preliminary NO GROWTH IN 1 DAY Resulted 11/10/17 19:25 Blood Peripheral Anaerobic Blood Culture - Preliminary NO GROWTH IN 1 DAY Resulted Result Diagram: 11/11/17 0520 11/11/17 0520 Imaging Last Impressions Lower Extremity MRI 11/11/17 0000 Signed Impressions: Service Date/Time: Saturday, November 11, 2017 09:02 - CONCLUSION: 1. There is a subcutaneous rim-enhancing fluid collection suspicious for abscess located along the anterolateral aspect of the proximal and mid leg measuring 6.4 x 1.2 x 20.4 cm. This collection is superficial to the anterior muscle compartment. There are no findings to indicate osteomyelitis. 2. Mild intramuscular and fascial edema within the anterior compartment muscles. Phil Villanueva MD Foot X-Ray 11/10/17 0000 Signed Impressions: Service Date/Time: Friday, November 10, 2017 19:03 - CONCLUSION: 1. Osteopenia. No acute fracture. Dada Cardona MD Assessment and Plan Assessment and Plan 62-year-old male with right anterior ankle ulcer with exposed tendon and superficial draining sinus to proximal leg Patient examined and evaluated with all questions answered Patient to OR tomorrow for right ankle ulcer debridement and irrigation with wound VAC placement, incision and drainage to right proximal leg Reviewed right lower extremity and right ankle MRI, no osteomyelitis N.p.o. after midnight okay clear liquid diet for breakfast Will place orders for consent Patient understands all alternatives risks benefits and complications associated with procedure Patient understands that he is at high risk for below the knee amputation Monica Dwyer DPM Nov 11, 2017 21:22
[2017-11-11 23:10] VITALS: BP 131/63; PULSE 79; RESP 13; TEMP 97.3; O2SAT 97
[2017-11-12] MEDS: VANCOMYCIN INJ 2,500 MG in SODIUM CHLORID 0.9% 500 ML INJ 500 ML IV SCH ×2 (01:22→12:31)
[2017-11-12 03:34] VITALS: BP 118/65; PULSE 66; RESP 16; TEMP 98.1; O2SAT 96
[2017-11-12] MEDS: AZTREONAM INJ 2,000 MG in SODIUM CHLORIDE 0.9% INJ 100 ML IV SCH ×4 (03:44→23:00)
[2017-11-12] MEDS: metroNIDAZOLE 500 MG INJ 100 ML IV SCH ×3 (05:05→21:00)
[2017-11-12 05:56] LABS: HEMATOCRIT 32.3 % (39.0-51.0); HEMOGLOBIN 10.8 GM/DL (13.0-17.0); MEAN CELL VOLUME 92.9 FL (80.0-100.0); MEAN CORPUSCULAR HGB CONC 33.4 % (32.0-36.0); MEAN PLATELET VOLUME 7.7 FL (7.0-11.0); PLATELET COUNT 176 TH/MM3 (150-450); RED BLOOD COUNT 3.48 MIL/MM3 (4.50-5.90); RED CELL DISTRIBUTION WIDTH 13.7 % (11.6-17.2); WHITE BLOOD COUNT 4.4 TH/MM3 (4.0-11.0)
[2017-11-12 06:28] LABS: CREATININE 0.68 MG/DL (0.60-1.30)
[2017-11-12] MEDS: SODIUM CHLOR 0.9% 1000 ML INJ 1,000 ML IV SCH ×2 (07:30→17:55)
[2017-11-12 07:41] VITALS: BP 164/77; PULSE 59; RESP 18; TEMP 97.9; O2SAT 99
[2017-11-12] MEDS: SODIUM CHLORIDE 0.9% FLUSH 10 ML FLUSH IV FLUSH SCH ×2 (09:00→21:00)
[2017-11-12] MEDS: HYDROCHLOROTHIAZIDE 12.5 MG CAP PO SCH (10:59)
[2017-11-12] MEDS: LISINOPRIL 20 MG TAB PO SCH (10:59)
[2017-11-12] MEDS: DOCUSATE SODIUM 50 MG/SENNA 8.6 MG TAB PO SCH ×2 (11:00→21:00)
[2017-11-12 11:29] VITALS: BP 158/78; PULSE 62; RESP 18; TEMP 98.1; O2SAT 98
[2017-11-12] MEDS ORDERED: PHARMACY ORDERED LAB ONE (11:45)
[2017-11-12] MEDS ORDERED: DEXAMETHASONE SOD PHOS 4 MG/ML VIAL IV ONE (12:00)
[2017-11-12] MEDS ORDERED: LIDOCAINE HCL 1% PF 5 ML SYRINGE OTHER ONE (12:00)
[2017-11-12] MEDS ORDERED: PHENYLEPH/NS 1000 MCG/10 ML SYR IV ONE (12:00)
[2017-11-12] MEDS ORDERED: ONDANSETRON HCL 4 MG/2 ML VIAL IV ONE (12:00)
[2017-11-12] MEDS ORDERED: PROPOFOL 200 MG/20 ML AMP IV ONE (12:00)
--- NOTE | 2017-11-12 14:34 | HHI.PR ---
Subjective Remarks 62-year-old male with a past medical history significant for hypertension presents to the emergency department for evaluation of right lower extremity wounds. The patient reports he was sent by his safety supervisor, Dr. Dwyer, for evaluation of a worsening right heel ulceration. The patient reports he is followed by his safety supervisor and is supposed to have home health care come and change his dressings although secondary to lack of insurance this has not been arranged. The patient denies any fever/chills. Reports that he has been able to ambulate. Denies any associated pain. 11-11 Patient reports he is feeling okay. Wondering when he will get around. Pain is controlled. Afebrile. 11-12 patient to go with podiatry tonight for surgery Currently n.p.o. Scheduled for surgery with podiatry No new complaints Objective Vitals Vital Signs Date Time Temp Pulse Resp B/P (MAP) Pulse Ox O2 Delivery O2 Flow Rate FiO2 11/12/17 11:29 98.1 62 18 158/78 (104) 98 11/12/17 07:41 97.9 59 18 164/77 (106) 99 11/12/17 03:34 98.1 66 16 118/65 (82) 96 11/11/17 23:10 97.3 79 13 131/63 (85) 97 11/11/17 19:52 98.7 57 17 158/83 (108) 98 I/O 11/11/17 11/11/17 11/11/17 11/12/17 11/12/17 11/12/17 07:00 15:00 23:00 07:00 15:00 23:00 Intake Total 1250 ml Output Total 600 ml Balance 650 ml Intake IV Total 1250 ml Output Urine Total 600 ml Result Diagram: 11/12/17 0515 11/12/17 0515 Other Results Laboratory Tests Test 11/10/17 19:30 11/10/17 21:50 11/11/17 05:20 11/12/17 05:15 White Blood Count 6.2 TH/MM3 5.6 TH/MM3 4.4 TH/MM3 Red Blood Count 4.05 MIL/MM3 3.60 MIL/MM3 3.48 MIL/MM3 Hemoglobin 12.5 GM/DL 11.2 GM/DL 10.8 GM/DL Hematocrit 36.8 % 32.7 % 32.3 % Mean Corpuscular Volume 90.9 FL 90.7 FL 92.9 FL Mean Corpuscular Hemoglobin 31.0 PG 31.2 PG 31.0 PG Mean Corpuscular Hemoglobin Concent 34.1 % 34.4 % 33.4 % Red Cell Distribution Width 13.7 % 13.8 % 13.7 % Platelet Count 224 TH/MM3 175 TH/MM3 176 TH/MM3 Mean Platelet Volume 7.4 FL 7.5 FL 7.7 FL Neutrophils (%) (Auto) 54.3 % 48.8 % Lymphocytes (%) (Auto) 31.0 % 31.7 % Monocytes (%) (Auto) 10.0 % 13.5 % Eosinophils (%) (Auto) 3.8 % 4.9 % Basophils (%) (Auto) 0.9 % 1.1 % Neutrophils # (Auto) 3.4 TH/MM3 2.7 TH/MM3 Lymphocytes # (Auto) 1.9 TH/MM3 1.8 TH/MM3 Monocytes # (Auto) 0.6 TH/MM3 0.8 TH/MM3 Eosinophils # (Auto) 0.2 TH/MM3 0.3 TH/MM3 Basophils # (Auto) 0.1 TH/MM3 0.1 TH/MM3 CBC Comment AUTO DIFF AUTO DIFF Differential Comment AUTO DIFF CONFIRMED AUTO DIFF CONFIRMED Prothrombin Time 13.0 SEC Prothromb Time International Ratio 1.3 RATIO Activated Partial Thromboplast Time 27.9 SEC Blood Urea Nitrogen 9 MG/DL 8 MG/DL 7 MG/DL Creatinine 0.81 MG/DL 0.59 MG/DL 0.68 MG/DL Random Glucose 89 MG/DL 115 MG/DL 173 MG/DL Total Protein 8.9 GM/DL Albumin 2.3 GM/DL Calcium Level 8.7 MG/DL 8.0 MG/DL 8.0 MG/DL Alkaline Phosphatase 133 U/L Aspartate Amino Transf (AST/SGOT) 28 U/L Alanine Aminotransferase (ALT/SGPT) 21 U/L Total Bilirubin 0.7 MG/DL Sodium Level 137 MEQ/L 140 MEQ/L 138 MEQ/L Potassium Level 3.3 MEQ/L 3.5 MEQ/L 3.2 MEQ/L Chloride Level 102 MEQ/L 106 MEQ/L 105 MEQ/L Carbon Dioxide Level 28.4 MEQ/L 27.2 MEQ/L 25.0 MEQ/L Anion Gap 7 MEQ/L 7 MEQ/L 8 MEQ/L Estimat Glomerular Filtration Rate 117 ML/MIN 169 ML/MIN 144 ML/MIN Erythrocyte Sedimentation Rate 104 mm/hr C-Reactive Protein 0.71 MG/DL Test 11/12/17 12:15 Vancomycin Level Trough 15.3 MCG/ML Imaging Last Impressions Lower Extremity MRI 11/11/17 0000 Signed Impressions: Service Date/Time: Saturday, November 11, 2017 09:02 - CONCLUSION: 1. There is a subcutaneous rim-enhancing fluid collection suspicious for abscess located along the anterolateral aspect of the proximal and mid leg measuring 6.4 x 1.2 x 20.4 cm. This collection is superficial to the anterior muscle compartment. There are no findings to indicate osteomyelitis. 2. Mild intramuscular and fascial edema within the anterior compartment muscles. Phil Villanueva MD Ankle MRI 11/11/17 0000 Signed Impressions: Service Date/Time: Saturday, November 11, 2017 18:27 - CONCLUSION: 1. Extensive tenosynovitis and cellulitis involving the anterior compartment without evidence of osteomyelitis. Al Jhaveri MD Foot X-Ray 11/10/17 0000 Signed Impressions: Service Date/Time: Friday, November 10, 2017 19:03 - CONCLUSION: 1. Osteopenia. No acute fracture. Dada Cardona MD Objective Remarks GENERAL: Awake alert oriented talkative and cooperative in no acute distress SKIN: Warm and dry. Right ankle and upper barrios wounds with serosanguineous drainage on the plantar aspect of the heel and the second digit and in the medial right ankle HEAD: Atraumatic. Normocephalic. EYES: Pupils equal and round. No scleral icterus. No injection or drainage. Extraocular muscles intact ENT: No nasal bleeding or discharge. Mucous membranes pink and moist. Tongue is midline NECK: Trachea midline. No JVD. Supple CARDIOVASCULAR: Regular rate and rhythm. S1-S2 no S3 or S4 RESPIRATORY: No accessory muscle use. Clear to auscultation. Breath sounds equal bilaterally. GASTROINTESTINAL: Abdomen soft, non-tender, nondistended. Hepatic and splenic margins not palpable. MUSCULOSKELETAL: Extremities without clubbing, cyanosis, or edema. No obvious deformities. NEUROLOGICAL: Awake and alert. No obvious cranial nerve deficits. Motor grossly within normal limits. Five out of 5 muscle strength in the arms and legs. Normal speech. PSYCHIATRIC: Appropriate mood and affect; insight and judgment normal. Medications and IVs Current Medications Acetaminophen (Tylenol) 500 mg ONCE ONCE PO Last administered on 11/10/17at 21: 28; Start 11/10/17 at 21:00; Stop 11/10/17 at 21:01; Status DC Vancomycin HCl 1000 mg/Sodium Chloride 250 ml @ 250 mls/hr ONCE ONCE IV Last administered on 11/10/17at 21:48; Start 11/10/17 at 21:00; Stop 11/10/17 at 22:01 ; Status DC Aztreonam 2000 mg/ Sodium Chloride 100 ml @ 200 mls/hr ONCE STAT IV Last administered on 11/10/17at 22:23; Start 11/10/17 at 20:46; Stop 11/10/17 at 21:15 ; Status DC Metronidazole 100 ml @ 100 mls/hr ONCE STAT IV Last administered on at 21:26; Start 11/10/17 at 20:46; Stop 11/10/17 at 21:45; Status DC Pharmacy Profile Note 0 ml @ 0 mls/hr UNSCH OTHER ; Start 11/10/17 at 21:30 Vancomycin HCl 1000 mg/Sodium Chloride 250 ml @ 250 mls/hr Q12H IV ; Start at 09:00; Status UNV Metronidazole 100 ml @ 100 mls/hr Q8H IV Last administered on 11/12/17at 05:05 ; Start 11/11/17 at 05:00 Aztreonam 2000 mg/ Sodium Chloride 100 ml @ 200 mls/hr Q6H IV Last administered on 11/12/17at 11:00; Start 11/11/17 at 03:00 Sodium Chloride 1,000 ml @ 125 mls/hr Q8H IV ; Start 11/10/17 at 21:17; Stop at 23:27; Status DC Sodium Chloride (NS Flush) 2 ml UNSCH PRN IV FLUSH FLUSH AFTER USING IV ACCESS ; Start 11/10/17 at 21:30 Sodium Chloride (NS Flush) 2 ml BID IV FLUSH Last administered on 11/11/17at 23: 56; Start 11/11/17 at 09:00 Acetaminophen (Tylenol) 650 mg Q4H PRN PO TEMP > 100.4; Start 11/10/17 at 21:30 Ondansetron HCl (Zofran Inj) 4 mg Q6H PRN IVP NAUSEA OR VOMITING; Start at 21:30 Naloxone HCl (Narcan Inj) 0.4 mg UNSCH PRN IV PUSH SEE LABEL COMMENTS; Start at 21:30 Senna/Docusate Sodium (Monika-Colace) 1 tab BID PO Last administered on at 11:00; Start 11/11/17 at 09:00 Magnesium Hydroxide (Milk Of Magnesia Liq) 30 ml Q12H PRN PO Mild constipation ; Start 11/10/17 at 21:30 Sennosides (Senokot) 17.2 mg Q12H PRN PO Moderate constipation; Start 11/10/17 at 21:30 Bisacodyl (Dulcolax Supp) 10 mg DAILY PRN RECTAL SEVERE CONSITIPATION; Start at 21:30 Lactulose (Lactulose Liq) 30 ml DAILY PRN PO SEVERE CONSITIPATION; Start at 21:30 Hydrochlorothiazide (Microzide) 12.5 mg DAILY PO Last administered on at 10:59; Start 11/11/17 at 09:00 Lisinopril (Prinivil) 40 mg DAILY PO Last administered on 11/12/17at 10:59; Start 11/11/17 at 09:00 Vancomycin HCl 1500 mg/Sodium Chloride 515 ml @ 257.5 mls/ hr ONCE ONCE IV Last administered on 11/11/17at 00:34; Start 11/10/17 at 23:00; Stop 11/11/17 at 00:59; Status DC Potassium Chloride (KCl) 40 meq ONCE ONCE PO Last administered on 11/11/17at 00 :37; Start 11/10/17 at 23:30; Stop 11/10/17 at 23:31; Status DC Sodium Chloride 1,000 ml @ 125 mls/hr Q8H IV Last administered on 11/11/17at 23 :55; Start 11/10/17 at 23:30 Vancomycin HCl 2500 mg/Sodium Chloride 525 ml @ 250 mls/hr Q12H IV Last administered on 11/12/17at 12:31; Start 11/11/17 at 12:00 Miscellaneous Information SPECIFIC LAB TO BE DRAWN:VANCO TROUGH DATE TO... ONCE ONCE .XX Last administered on 11/12/17at 12:15; Start 11/12/17 at 11:45; Stop 11/12/17 at 11:46; Status DC Gadodiamide (Omniscan Pf Inj) 25 ml STK-MED ONCE IVCONTRAST Last administered on 11/11/17at 09:50; Start 11/11/17 at 09:50; Stop 11/11/17 at 09:51; Status DC Gadodiamide (Omniscan Pf Inj) 20 ml STK-MED ONCE IV PUSH Last administered on at 18:53; Start 11/11/17 at 18:53; Stop 11/11/17 at 18:56; Status DC Gadodiamide (Omniscan Pf Inj) 5 ml STK-MED ONCE IV PUSH Last administered on at 18:53; Start 11/11/17 at 18:53; Stop 11/11/17 at 18:56; Status DC Miscellaneous Information SPECIFIC LAB TO BE DRAWN:VANCOMYCIN TROUGH DATE TO... ONCE ONCE .XX ; Start 11/14/17 at 11:45; Stop 11/14/17 at 11:46 A/P Assessment and Plan 62-year-old male with: 1. Right lower extremity cellulitis; cannot exclude osteomyelitis Aztreonam/Flagyl/vancomycin (patient allergic to penicillin) Foot x-ray shows osteopenia with no acute fracture, personally reviewed ESR elevated at 104 MRI pending Podiatry consulted, appreciate recommendations Wound care consulted To go for surgery with podiatry today 2. Hypertension Continue home lisinopril, hydrochlorothiazide FEN NPO Electrolytes: Status post by mouth repletion of potassium in the ED, monitor BMP Holding pharmacologic anticoagulation for possible intervention Patient to go for surgery later today Discharge Planning Pending clearance by per day Andriy Reddy DO Nov 12, 2017 14:34
[2017-11-12] MEDS ORDERED: SODIUM CHLORID 0.9% 500 ML IV PRN (15:45)
[2017-11-12] MEDS ORDERED: POVIDONE IODINE 5% (ANTISEPSIS KIT) 4 APPLICATIONS EACH NARE PRN (15:45)
[2017-11-12] MEDS ORDERED: METOPROLOL TARTRATE 25 MG TAB PO PRN (15:45)
[2017-11-12] MEDS ORDERED: LACTATED RINGER'S 1000 ML IV PRN (15:45)
[2017-11-12] MEDS ORDERED: CHLORHEXIDINE GLUCONATE 2 % 1 PACK (2 CLOTHS) TOPICAL PRN (15:45)
[2017-11-12 20:00] VITALS: BP 181/88; PULSE 61; RESP 16; TEMP 97.1; O2SAT 99
[2017-11-12] MEDS ORDERED: GENTAMICIN SULFATE 80 MG/2 ML VIAL ONE ×2 (20:26→22:59)
[2017-11-12] MEDS ORDERED: BUPIVACAINE HCL PF 0.5% 30 ML VIAL ONE (20:26)
[2017-11-12 20:42] VITALS: PULSE 69
--- NOTE | 2017-11-12 22:21 | HHI.PR ---
Subjective Remarks Patient seen bedside in PACU. He is in agreement with planned procedure. Denies any N, V, F, Ch. Objective Vital Signs Date Time Temp Pulse Resp B/P (MAP) Pulse Ox O2 Delivery O2 Flow Rate FiO2 11/12/17 20:42 98.3 69 16 173/89 (117) 97 11/12/17 20:42 69 11/12/17 20:00 97.1 61 16 181/88 (119) 99 11/12/17 11:29 98.1 62 18 158/78 (104) 98 11/12/17 07:41 97.9 59 18 164/77 (106) 99 11/12/17 03:34 98.1 66 16 118/65 (82) 96 11/11/17 23:10 97.3 79 13 131/63 (85) 97 I/O 11/11/17 11/11/17 11/11/17 11/12/17 11/12/17 11/12/17 07:00 15:00 23:00 07:00 15:00 23:00 Intake Total 1250 ml 0 ml Output Total 600 ml 800 ml Balance 650 ml -800 ml Intake Oral 0 ml IV Total 1250 ml Output Urine Total 600 ml 800 ml # Voids 1 # Bowel Movements 0 Result Diagram: 11/12/17 0515 11/12/17 0515 Imaging Last Impressions Lower Extremity MRI 11/11/17 0000 Signed Impressions: Service Date/Time: Saturday, November 11, 2017 09:02 - CONCLUSION: 1. There is a subcutaneous rim-enhancing fluid collection suspicious for abscess located along the anterolateral aspect of the proximal and mid leg measuring 6.4 x 1.2 x 20.4 cm. This collection is superficial to the anterior muscle compartment. There are no findings to indicate osteomyelitis. 2. Mild intramuscular and fascial edema within the anterior compartment muscles. Phil Villanueva MD Ankle MRI 11/11/17 0000 Signed Impressions: Service Date/Time: Saturday, November 11, 2017 18:27 - CONCLUSION: 1. Extensive tenosynovitis and cellulitis involving the anterior compartment without evidence of osteomyelitis. Al Jhaveri MD Foot X-Ray 11/10/17 0000 Signed Impressions: Service Date/Time: Friday, November 10, 2017 19:03 - CONCLUSION: 1. Osteopenia. No acute fracture. Dada Cardona MD Other Results Microbiology Date/Time Source Procedure Growth Status 11/10/17 19:25 Blood Peripheral Aerobic Blood Culture - Preliminary NO GROWTH IN 2 DAYS Resulted 11/10/17 19:25 Blood Peripheral Anaerobic Blood Culture - Preliminary NO GROWTH IN 2 DAYS Resulted Objective Remarks Dressing to right LE clean dry and intact. Edema noted to RLE. Erythema noted to proximal leg and foot. DIVERSIFIED CROPS SUPERVISOR under 3 secs to right LE. Medications and IVs Current Medications Medications (Trade) Dose Ordered Sig/Rachel Route Start Time Stop Time Status Last Admin Pharmacy Profile Note 0 ml @ 0 mls/hr UNSCH OTHER 11/10/17 21:30 Metronidazole 100 ml @ 100 mls/hr Q8H IV 11/11/17 05:00 11/12/17 16:58 Aztreonam 2000 mg/ Sodium Chloride 100 ml @ 200 mls/hr Q6H IV 11/11/17 03:00 11/12/17 17:55 (NS Flush) 2 ml UNSCH PRN IV FLUSH 11/10/17 21:30 (NS Flush) 2 ml BID IV FLUSH 11/11/17 09:00 11/11/17 23:56 (Tylenol) 650 mg Q4H PRN PO 11/10/17 21:30 (Zofran Inj) 4 mg Q6H PRN IVP 11/10/17 21:30 (Narcan Inj) 0.4 mg UNSCH PRN IV PUSH 11/10/17 21:30 (Monika-Colace) 1 tab BID PO 11/11/17 09:00 11/12/17 11:00 (Milk Of Magnesia Liq) 30 ml Q12H PRN PO 11/10/17 21:30 (Senokot) 17.2 mg Q12H PRN PO 11/10/17 21:30 (Dulcolax Supp) 10 mg DAILY PRN RECTAL 11/10/17 21:30 (Lactulose Liq) 30 ml DAILY PRN PO 11/10/17 21:30 (Microzide) 12.5 mg DAILY PO 11/11/17 09:00 11/12/17 10:59 (Prinivil) 40 mg DAILY PO 11/11/17 09:00 11/12/17 10:59 Sodium Chloride 1,000 ml @ 125 mls/hr Q8H IV 11/10/17 23:30 11/12/17 17:55 Vancomycin HCl 2500 mg/Sodium Chloride 525 ml @ 250 mls/hr Q12H IV 11/11/17 12:00 11/12/17 12:31 Miscellaneous Information SPECIFIC LAB TO BE DRAWN:VANCOMYCIN TROUGH DATE TO... ONCE ONCE .XX 11/14/17 11:45 11/14/17 11:46 Lactated Ringer's 1,000 ml @ 30 mls/hr Q24H PRN IV 11/12/17 15:45 11/15/17 15:44 Sodium Chloride 500 ml @ 30 mls/hr [id number] PRN IV 11/12/17 15:45 11/15/17 15:44 (Lopressor) 25 mg TRANSMISSION SYSTEMS OPERATOR PRN PO 11/12/17 15:45 11/15/17 15:44 (Betadine 5% Antisepsis Kit) 1 applic TRANSMISSION SYSTEMS OPERATOR PRN EACH NARE 11/12/17 15:45 11/15/17 15:44 (Chlorhexidine 2% Cloth) 3 pack TRANSMISSION SYSTEMS OPERATOR PRN TOPICAL 11/12/17 15:45 11/15/17 15:44 Assessment and Plan Assessment and Plan 62-year-old male with right anterior ankle ulcer with exposed tendon and superficial draining sinus to proximal leg Patient examined and evaluated with all questions answered Patient to OR today for right ankle ulcer debridement and irrigation with wound VAC placement, incision and drainage to right proximal leg; multiple right LE ulceration debridement and irrigation. Reviewed right lower extremity and right ankle MRI, no osteomyelitis Patient has been NPO Consent reviewed and signed with patient Patient understands he is at high risk for limb loss Patient understands all alternatives risks benefits and complications associated with procedure Monica Dwyer DPM Nov 12, 2017 22:21
--- NOTE | 2017-11-12 23:55 | HHI.PR ---
Immediate Post Op Note Procedure Date: Nov 12, 2017 Pre Op Diagnosis: Right lower extremity infection Post Op Diagnosis: Right lower extremity infection Surgeon: Monica Dwyer Repatcher(s): None Procedure: 1. Incision and drainage of proximal leg abscess 2. Debridement and irrigation of anterior ankle wound 3. Debridement irrigation of plantar posterior heel ulcer Findings: None Additional Information: None Complications: None Specimen(s) removed: Deep culture obtained Estimated blood loss: 5 cc Anesthesia: General Drains: None Patient to: PACU Patient Condition: Good Monica Dwyer DPM Nov 12, 2017 23:55
[2017-11-13] MEDS ORDERED: Post-op Orders (for Pharmacy) XX ONE
[2017-11-13] MEDS ORDERED: DO NOT ADM ANY ANTICOAGULANT DRUGS PRN (00:30)
--- NOTE | 2017-11-13 01:02 | MP ---
cc: Monica Dwyer DPM DATE OF OPERATION: 11/12/2017 SURGEON: Monica Dwyer DPM [employer]ADITIONAL [facility] PRACTITIONER: None. PREOPERATIVE DIAGNOSIS: Right lower extremity infection including anterior ankle ulceration with exposed tendon. POSTOPERATIVE DIAGNOSIS: Right lower extremity infection including anterior ankle ulceration with exposed tendon. PROCEDURE: 1. Debridement and irrigation of anterior ulcer with tendon exposed with wound VAC placement. 2. Incision and drainage of proximal anterior leg abscess. 3. Debridement and irrigation of plantar posterior heel ulcer. ANESTHESIA: General with a local infiltrate of 10 mL infiltrated about the right ankle and 10 mL infiltrated about the proximal leg. HEMOSTASIS: None. ESTIMATED BLOOD LOSS: 50 mL. INJECTABLES: None. COMPLICATIONS: None. INDICATIONS FOR PROCEDURE: The patient is a 62-year-old male who presented to office with extensive swelling and erythema surrounding an anterior ankle ulcer with draining sinus noted to proximal leg. I encouraged the patient to proceed to the ED as soon as possible. The patient was seen in the emergency department and was admitted for IV antibiotics and debridement and irrigation as well as I and D of abscess. The patient understands all risks, complications and benefits of the surgical procedure. He understands that he is at risk for limb loss. DESCRIPTION OF PROCEDURE: The patient was brought back to the operating room, placed on the operating room table in the supine position. General anesthesia was then induced. Local infiltrate of 10 mL of Marcaine plain were infiltrated about the right ankle and 10 mL of Marcaine plain were infiltrated about the proximal leg. Right lower extremity prepped and draped in usual sterile fashion. Attention was then directed to the proximal leg where a 2 cm incision was made with care to retract vital neurovascular structures. Hemostat was utilized to identify pocked of purulent drainage. There was noted to be facial planing proximally and distally. Site was evacuated of all purulent serous drainage and irrigated with 3 liters of normal saline with gentamicin antibiotic irrigant. Site was loosely approximated with 2-0 Prolene. Attention was then directed to right anterior ankle ulcer which was noted to have exposed ____ anterior tendon. Site was sharply debrided with 15 blade. Versajet was utilized to also debride site. Copious irrigation was performed with 3 liters of normal saline and gentamicin. Attention was then directed to plantar posterior heel where an ulceration was noted 3 cm x 3 cm. Site was debrided with Versajet and 15 blade sharply. Wound VAC was placed to anterior ____ ulcer measuring 8 cm x 9.5 cm in length 0.5 cm in depth. No exposed was noted. Wound VAC was placed. Noted to be functioning 125 mmHg. Adaptic was placed over tendon to protect it. Calf ____ Roby were than applied to right lower extremity with ABD pad and gauze to proximal incision and drainage site. Patient tolerated procedure and anesthesia well. He was transferred from the OR to PACU with vital signs stable and neurovascular status intact. We will await deep cultures and continue IV antibiotics. Possible return to OR for graft placement. DAX Rubio/ , 12:03 AM , 01:00 AM
[2017-11-13] MEDS: SODIUM CHLOR 0.9% 1000 ML INJ 1,000 ML IV SCH ×2 (01:11→05:31)
[2017-11-13] MEDS: VANCOMYCIN INJ 2,500 MG in SODIUM CHLORID 0.9% 500 ML INJ 500 ML IV SCH ×2 (01:11→12:01)
[2017-11-13 01:16] VITALS: BP 156/78; PULSE 66; RESP 16; TEMP 96.5; O2SAT 95
[2017-11-13 04:00] VITALS: BP 154/79; PULSE 62; RESP 16; TEMP 97.5; O2SAT 93
[2017-11-13] MEDS: AZTREONAM INJ 2,000 MG in SODIUM CHLORIDE 0.9% INJ 100 ML IV SCH ×4 (04:36→21:49)
[2017-11-13] MEDS: metroNIDAZOLE 500 MG INJ 100 ML IV SCH (05:22)
[2017-11-13 07:00] LABS: ALT (GPT) 19 U/L (12-78); AST (GOT) 31 U/L (15-37); BICARBONATE 24.9 MEQ/L (21.0-32.0); BLOOD UREA NITROGEN 6 MG/DL (7-18); CALCIUM 8.1 MG/DL (8.5-10.1); CHLORIDE 105 MEQ/L (98-107); CREATININE 0.76 MG/DL (0.60-1.30); GLOMERULAR FILTRATION RATE 126 ML/MIN (>89); GLUCOSE,RANDOM 194 MG/DL (74-106); MAGNESIUM 1.7 MG/DL (1.5-2.5); PHOSPHORUS 2.6 MG/DL (2.5-4.9); SODIUM (NA) 137 MEQ/L (136-145)
[2017-11-13 07:02] LABS: AUTOMATED NEUTROPHIL # 3.5 TH/MM3 (1.8-7.7); BASOPHIL % 0.5 % (0.0-2.0); EOSINOPHIL % 0.2 % (0.0-4.0); HEMATOCRIT 34.6 % (39.0-51.0); HEMOGLOBIN 11.8 GM/DL (13.0-17.0); LYMPH % 22.5 % (9.0-44.0); LYMPHOCYTE # 1.1 TH/MM3 (1.0-4.8); MEAN CELL VOLUME 91.8 FL (80.0-100.0); MEAN CORPUSCULAR HEMOGLOBIN 31.3 PG (27.0-34.0); MEAN CORPUSCULAR HGB CONC 34.1 % (32.0-36.0); MEAN PLATELET VOLUME 8.1 FL (7.0-11.0); MONO % 2.7 % (0.0-8.0); MONOCYTE # 0.1 TH/MM3 (0-0.9); NEUT % 74.1 % (16.0-70.0); PLATELET COUNT 190 TH/MM3 (150-450); RED BLOOD COUNT 3.77 MIL/MM3 (4.50-5.90); RED CELL DISTRIBUTION WIDTH 13.9 % (11.6-17.2); WHITE BLOOD COUNT 4.8 TH/MM3 (4.0-11.0)
[2017-11-13 07:09] LABS: ALKALINE PHOSPHATASE 105 U/L (45-117); FREE T4 1.04 NG/DL (0.76-1.46); TOTAL BILIRUBIN ADULT 0.5 MG/DL (0.2-1.0); TOTAL PROTEIN 7.7 GM/DL (6.4-8.2)
[2017-11-13] MEDS: LISINOPRIL 20 MG TAB PO SCH (07:57)
[2017-11-13] MEDS: HYDROCHLOROTHIAZIDE 12.5 MG CAP PO SCH (07:57)
[2017-11-13] MEDS: DOCUSATE SODIUM 50 MG/SENNA 8.6 MG TAB PO SCH ×2 (07:57→21:00)
[2017-11-13] MEDS: SODIUM CHLORIDE 0.9% FLUSH 10 ML FLUSH IV FLUSH SCH ×2 (07:58→21:49)
[2017-11-13 08:00] VITALS: BP 143/80; PULSE 74; RESP 17; TEMP 97.5; O2SAT 93
--- NOTE | 2017-11-13 11:03 | HHI.PR ---
Subjective Remarks Follow-up right lower extremity chronic wounds with superimposed cellulitis status post I&D wound VAC placement 11/13/17-patient seen and examined, denies any significant right lower extremity pain. Currently afebrile. Objective Vitals Vital Signs Date Time Temp Pulse Resp B/P (MAP) Pulse Ox O2 Delivery O2 Flow Rate FiO2 11/13/17 08:00 97.5 74 17 143/80 (101) 93 11/13/17 04:00 97.5 62 16 154/79 (104) 93 11/13/17 01:16 96.5 66 16 156/78 (104) 95 11/13/17 00:45 97.8 58 23 160/81 (107) 97 Nasal Cannula 2 11/13/17 00:30 58 24 161/93 (115) 97 Nasal Cannula 2 11/13/17 00:15 111 24 165/82 (109) 98 Nasal Cannula 2 11/13/17 00:00 66 16 144/73 (96) 97 Nasal Cannula 2 11/12/17 23:50 97.5 73 16 177/90 (119) 99 Nasal Cannula 6 11/12/17 20:42 98.3 69 16 173/89 (117) 97 11/12/17 20:42 69 11/12/17 20:00 97.1 61 16 181/88 (119) 99 11/12/17 11:29 98.1 62 18 158/78 (104) 98 I/O 11/12/17 11/12/17 11/12/17 11/13/17 11/13/17 11/13/17 07:00 15:00 23:00 07:00 15:00 23:00 Intake Total 1250 ml 0 ml 1765 ml Output Total 600 ml 800 ml 1715 ml 50 ml Balance 650 ml -800 ml 50 ml -50 ml Intake Oral 0 ml 540 ml IV Total 1250 ml 725 ml Other 500 ml Output Urine Total 600 ml 800 ml 1700 ml Drainage Total 50 ml Estimated Blood Loss 15 ml # Voids 1 # Bowel Movements 0 1 Result Diagram: 11/13/17 0519 11/13/17 0519 Imaging Last Impressions Lower Extremity MRI 11/11/17 0000 Signed Impressions: Service Date/Time: Saturday, November 11, 2017 09:02 - CONCLUSION: 1. There is a subcutaneous rim-enhancing fluid collection suspicious for abscess located along the anterolateral aspect of the proximal and mid leg measuring 6.4 x 1.2 x 20.4 cm. This collection is superficial to the anterior muscle compartment. There are no findings to indicate osteomyelitis. 2. Mild intramuscular and fascial edema within the anterior compartment muscles. Phil Villanueva MD Ankle MRI 11/11/17 0000 Signed Impressions: Service Date/Time: Saturday, November 11, 2017 18:27 - CONCLUSION: 1. Extensive tenosynovitis and cellulitis involving the anterior compartment without evidence of osteomyelitis. Al Jhaveri MD Foot X-Ray 11/10/17 0000 Signed Impressions: Service Date/Time: Friday, November 10, 2017 19:03 - CONCLUSION: 1. Osteopenia. No acute fracture. Dada Cardona MD Objective Remarks GENERAL: NAD SKIN: Warm and dry. HEAD: Normocephalic. EYES: No scleral icterus. No injection or drainage. NECK: Supple, trachea midline. No JVD or lymphadenopathy. CARDIOVASCULAR: Regular rate and rhythm without murmurs, gallops, or rubs. RESPIRATORY: Breath sounds equal bilaterally. No accessory muscle use. GASTROINTESTINAL: Abdomen soft, non-tender, nondistended. MUSCULOSKELETAL: No cyanosis, or edema. dressing over right foot with wound vac in place BACK: Nontender without obvious deformity. No CVA tenderness. Procedures 1. Incision and drainage of proximal leg abscess 2. Debridement and irrigation of anterior ankle wound 3. Debridement irrigation of plantar posterior heel ulcer A/P Problem List: (1) Abscess of right foot ICD Code: L02.611 - Cutaneous abscess of right foot (2) Cellulitis of foot, right ICD Code: L03.115 - Cellulitis of right lower limb (3) Hypokalemia ICD Code: E87.6 - Hypokalemia (4) Blood glucose elevated ICD Code: R73.9 - Hyperglycemia, unspecified Assessment and Plan 62-year-old man with Right foot abscess with surrounding cellulitis Status post I&D with wound VAC placement Currently on IV antibiotics including aztreonam and change Flagyl to by mouth Wound culture pending Pain management accordingly Management per podiatry Wound VAC change per protocol Hypertension Continue with hydrochlorothiazide and lisinopril Hypokalemia Give potassium 60 mEq 1 now Elevated blood glucose Check hemoglobin A1c and treat accordingly Mauricio Gallardo MD Nov 13, 2017 11:03
[2017-11-13 11:08] LABS: HEMOGLOBIN A1C 4.3 % (4.3-6.0)
[2017-11-13 12:00] VITALS: BP 137/93; PULSE 72; RESP 18; TEMP 97; O2SAT 100
[2017-11-13] MEDS: ENOXAPARIN SODIUM 40 MG/0.4 ML SYRINGE SQ SCH (12:01)
[2017-11-13] MEDS ORDERED: GABAPENTIN 100 MG CAP PO SCH (13:00)
[2017-11-13] MEDS: metroNIDAZOLE 500 MG TAB PO SCH ×2 (13:49→21:49)
[2017-11-13 16:00] VITALS: BP 114/52; PULSE 64; RESP 17; TEMP 97.7; O2SAT 93
[2017-11-13 20:00] VITALS: BP 171/87; PULSE 65; RESP 16; TEMP 97.6; O2SAT 96
[2017-11-13] MEDS ORDERED: cloNIDine HCL 0.1 MG TAB PO ONE (21:30)
[2017-11-14] VITALS: BP 120/59; PULSE 57; RESP 18; TEMP 97.5; O2SAT 99
--- NOTE | 2017-11-14 00:26 | HHI.PR ---
Subjective Remarks Patient seen bedside this evening. Denies nausea, vomiting, fevers, or chills. Denies calf pain. Resting comfortably. Objective Vital Signs Date Time Temp Pulse Resp B/P (MAP) Pulse Ox O2 Delivery O2 Flow Rate FiO2 11/13/17 20:00 97.6 65 16 171/87 (115) 96 11/13/17 16:00 97.7 64 17 114/52 (72) 93 11/13/17 12:00 97.0 72 18 137/93 (108) 100 11/13/17 08:00 97.5 74 17 143/80 (101) 93 11/13/17 04:00 97.5 62 16 154/79 (104) 93 11/13/17 01:16 96.5 66 16 156/78 (104) 95 11/13/17 00:45 97.8 58 23 160/81 (107) 97 Nasal Cannula 2 11/13/17 00:30 58 24 161/93 (115) 97 Nasal Cannula 2 I/O 11/13/17 11/13/17 11/13/17 11/14/17 11/14/17 11/14/17 07:00 15:00 23:00 07:00 15:00 23:00 Intake Total 1765 ml 525 ml 1660 ml 100 ml Output Total 1715 ml 50 ml 2550 ml Balance 50 ml 475 ml -890 ml 100 ml Intake Oral 540 ml 1560 ml IV Total 725 ml 525 ml 100 ml 100 ml Other 500 ml Output Urine Total 1700 ml 2550 ml Drainage Total 50 ml Estimated Blood Loss 15 ml # Bowel Movements 1 2 Result Diagram: 11/13/17 0519 11/13/17 0519 Imaging Last Impressions Lower Extremity MRI 11/11/17 0000 Signed Impressions: Service Date/Time: Saturday, November 11, 2017 09:02 - CONCLUSION: 1. There is a subcutaneous rim-enhancing fluid collection suspicious for abscess located along the anterolateral aspect of the proximal and mid leg measuring 6.4 x 1.2 x 20.4 cm. This collection is superficial to the anterior muscle compartment. There are no findings to indicate osteomyelitis. 2. Mild intramuscular and fascial edema within the anterior compartment muscles. Phil Villanueva MD Ankle MRI 11/11/17 0000 Signed Impressions: Service Date/Time: Saturday, November 11, 2017 18:27 - CONCLUSION: 1. Extensive tenosynovitis and cellulitis involving the anterior compartment without evidence of osteomyelitis. Al Jhaveri MD Foot X-Ray 11/10/17 0000 Signed Impressions: Service Date/Time: Friday, November 10, 2017 19:03 - CONCLUSION: 1. Osteopenia. No acute fracture. Dada Cardona MD Procedures Postop day 1 Patient is status post incision and drainage of right proximal leg abscess Status post debridement and irrigation of anterior leg ulcer with wound VAC placement Status post debridement irrigation of plantar heel wound Other Results Microbiology Date/Time Source Procedure Growth Status 11/10/17 19:25 Blood Peripheral Aerobic Blood Culture - Preliminary NO GROWTH IN 3 DAYS Resulted 11/10/17 19:25 Blood Peripheral Anaerobic Blood Culture - Preliminary NO GROWTH IN 3 DAYS Resulted 11/12/17 22:52 Abscess Leg Fungal Smear - Final NO FUNGAL ELEMENTS SEEN. Resulted 11/12/17 22:52 Abscess Leg Fungal Culture Pending Resulted Objective Remarks Dressing to right lower extremity screen dry and intact with wound VAC functioning at 125 mm per mercury Medications and IVs Current Medications Medications (Trade) Dose Ordered Sig/Rachel Route Start Time Stop Time Status Last Admin Pharmacy Profile Note 0 ml @ 0 mls/hr UNSCH OTHER 11/10/17 21:30 Aztreonam 2000 mg/ Sodium Chloride 100 ml @ 200 mls/hr Q6H IV 11/11/17 03:00 11/13/17 21:49 (NS Flush) 2 ml UNSCH PRN IV FLUSH 11/10/17 21:30 (NS Flush) 2 ml BID IV FLUSH 11/11/17 09:00 11/13/17 21:49 (Tylenol) 650 mg Q4H PRN PO 11/10/17 21:30 (Zofran Inj) 4 mg Q6H PRN IVP 11/10/17 21:30 (Narcan Inj) 0.4 mg UNSCH PRN IV PUSH 11/10/17 21:30 (Monika-Colace) 1 tab BID PO 11/11/17 09:00 11/13/17 07:57 (Milk Of Magnesia Liq) 30 ml Q12H PRN PO 11/10/17 21:30 (Senokot) 17.2 mg Q12H PRN PO 11/10/17 21:30 (Dulcolax Supp) 10 mg DAILY PRN RECTAL 11/10/17 21:30 (Lactulose Liq) 30 ml DAILY PRN PO 11/10/17 21:30 (Microzide) 12.5 mg DAILY PO 11/11/17 09:00 11/13/17 07:57 (Prinivil) 40 mg DAILY PO 11/11/17 09:00 11/13/17 07:57 Vancomycin HCl 2500 mg/Sodium Chloride 525 ml @ 250 mls/hr Q12H IV 11/11/17 12:00 11/13/17 12:01 Miscellaneous Information SPECIFIC LAB TO BE DRAWN:VANCOMYCIN TROUGH DATE TO... ONCE ONCE .XX 11/14/17 11:45 11/14/17 11:46 Lactated Ringer's 1,000 ml @ 30 mls/hr Q24H PRN IV 11/12/17 15:45 11/15/17 15:44 Sodium Chloride 500 ml @ 30 mls/hr [id number] PRN IV 11/12/17 15:45 11/15/17 15:44 (Lopressor) 25 mg CLIENT SERVICES MANAGER PRN PO 11/12/17 15:45 11/15/17 15:44 (Betadine 5% Antisepsis Kit) 1 applic CLIENT SERVICES MANAGER PRN EACH NARE 11/12/17 15:45 11/15/17 15:44 (Chlorhexidine 2% Cloth) 3 pack CLIENT SERVICES MANAGER PRN TOPICAL 11/12/17 15:45 11/15/17 15:44 Miscellaneous Information ALL NURSING DEPARTME... UNSCH PRN .XX 11/13/17 00:30 11/14/17 00:29 (Flagyl) 500 mg Q8HR PO 11/13/17 14:00 11/13/17 21:49 (Lovenox Inj) 40 mg Q24H SQ 11/13/17 12:00 11/13/17 12:01 Assessment and Plan Assessment and Plan 62-year-old male with right anterior ankle ulcer with exposed tendon and superficial draining sinus to proximal leg Patient examined and evaluated with all questions answered Will reevaluate wound tomorrow and takedown back Please continue IV antibiotics We will take a wound culture of anterior ankle ulcer We will evaluate whether patient needs repeat debridement and irrigation of anterior ankle ulcer Recommend infectious disease consult as patient is a readmission for right lower extremity ulceration, recommend Dr. Hopson Patient will need to be discharged on IV antibiotics as well as home health care as he failed discharge on oral antibiotics and self care on last admission Care consult recommended to arrange for appropriate patient care once discharged. Monica Dwyer DPM Nov 14, 2017 00:26
[2017-11-14] MEDS: VANCOMYCIN INJ 2,500 MG in SODIUM CHLORID 0.9% 500 ML INJ 500 ML IV SCH ×2 (00:34→12:18)
[2017-11-14] MEDS: AZTREONAM INJ 2,000 MG in SODIUM CHLORIDE 0.9% INJ 100 ML IV SCH ×4 (03:57→20:27)
[2017-11-14 04:00] VITALS: BP 123/62; PULSE 58; RESP 18; TEMP 98.1; O2SAT 96
[2017-11-14] MEDS: metroNIDAZOLE 500 MG TAB PO SCH ×3 (05:13→20:30)
[2017-11-14 08:00] VITALS: BP 140/84; PULSE 58; RESP 18; TEMP 97.1; O2SAT 98
[2017-11-14] MEDS: HYDROCHLOROTHIAZIDE 12.5 MG CAP PO SCH (08:27)
[2017-11-14] MEDS: LISINOPRIL 20 MG TAB PO SCH (08:27)
[2017-11-14] MEDS: DOCUSATE SODIUM 50 MG/SENNA 8.6 MG TAB PO SCH ×2 (08:27→20:33)
[2017-11-14] MEDS: SODIUM CHLORIDE 0.9% FLUSH 10 ML FLUSH IV FLUSH SCH ×2 (08:27→20:31)
--- NOTE | 2017-11-14 10:00 | HHI.PR ---
Subjective Remarks Follow-up right lower extremity chronic wounds with superimposed cellulitis status post I&D wound VAC placement 11/13/17-patient seen and examined, denies any significant right lower extremity pain. Currently afebrile. 11/14/17-patient seen and examined, afebrile, no acute event overnight, taking by mouth without any complication nausea and vomiting. Objective Vitals Vital Signs Date Time Temp Pulse Resp B/P (MAP) Pulse Ox O2 Delivery O2 Flow Rate FiO2 11/14/17 08:00 97.1 58 18 140/84 (102) 98 11/14/17 04:00 98.1 58 18 123/62 (82) 96 11/14/17 00:00 97.5 57 18 120/59 (79) 99 11/13/17 20:00 97.6 65 16 171/87 (115) 96 11/13/17 16:00 97.7 64 17 114/52 (72) 93 11/13/17 12:00 97.0 72 18 137/93 (108) 100 I/O 11/13/17 11/13/17 11/13/17 11/14/17 11/14/17 11/14/17 07:00 15:00 23:00 07:00 15:00 23:00 Intake Total 1765 ml 525 ml 1660 ml 725 ml Output Total 1715 ml 50 ml 2575 ml 925 ml Balance 50 ml 475 ml -915 ml -200 ml Intake Oral 540 ml 1560 ml IV Total 725 ml 525 ml 100 ml 725 ml Other 500 ml Output Urine Total 1700 ml 2550 ml 900 ml Drainage Total 50 ml 25 ml 25 ml Estimated Blood Loss 15 ml # Bowel Movements 1 2 1 Result Diagram: 11/13/1751811/13/17518 Objective Remarks GENERAL: NAD SKIN: Warm and dry. HEAD: Normocephalic. EYES: No scleral icterus. No injection or drainage. NECK: Supple, trachea midline. No JVD or lymphadenopathy. CARDIOVASCULAR: Regular rate and rhythm without murmurs, gallops, or rubs. RESPIRATORY: Breath sounds equal bilaterally. No accessory muscle use. GASTROINTESTINAL: Abdomen soft, non-tender, nondistended. MUSCULOSKELETAL: No cyanosis, or edema. dressing over right foot with wound vac in place BACK: Nontender without obvious deformity. No CVA tenderness. Procedures 1. Incision and drainage of proximal leg abscess 2. Debridement and irrigation of anterior ankle wound 3. Debridement irrigation of plantar posterior heel ulcer A/P Problem List: (1) Abscess of right foot ICD Code: L02.611 - Cutaneous abscess of right foot (2) Cellulitis of foot, right ICD Code: L03.115 - Cellulitis of right lower limb (3) Hypokalemia ICD Code: E87.6 - Hypokalemia (4) Blood glucose elevated ICD Code: R73.9 - Hyperglycemia, unspecified Assessment and Plan 62-year-old man with Right foot abscess with surrounding cellulitis Status post I&D with wound VAC placement Currently on IV antibiotics including aztreonam and Flagyl PO Wound culture pending Pain management accordingly Management per podiatry Wound VAC change per protocol Consult infectious disease specialist as patient may need IV antibiotic on discharge Hypertension Continue with hydrochlorothiazide and lisinopril Hypokalemia s/p potassium 60 mEq 1 Elevated blood glucose Hemoglobin A1c 4.3 Mauricio Gallardo MD Nov 14, 2017 10:00
[2017-11-14] MEDS ORDERED: PHARMACY ORDERED LAB ONE (11:45)
[2017-11-14 12:00] VITALS: BP 133/65; PULSE 60; RESP 20; TEMP 97.2; O2SAT 99
[2017-11-14] MEDS: ENOXAPARIN SODIUM 40 MG/0.4 ML SYRINGE SQ SCH (12:18)
--- NOTE | 2017-11-14 12:57 | PD.ID.CON ---
History of Present Illness Service ID Consult Requested By Dr Gallardo Reason for Consult R foot abscess Primary Care Physician No Primary Care Physician Diagnoses: History of Present Illness Pt is a 62-year-old non diabetic male with past medical history of hypertension and right anterior ankle ulcer x few weeks with purulent drainage and exposed tendon Reports preexisting BLE edema, mor e prominent on ipsilateral lower extremety He presetned with above symprtoms to ER dsenies fever, fchills. No toher complaints MRI showed a subcutaneous rim-enhancing fluid collection suspicious for abscess located along the anterolateral aspect of the proximal and mid leg measuring 6.4 x 1.2 x 20.4 cm superficial to the anterior muscle compartment with no findings to indicate osteomyelitis and Mild intramuscular and fascial edema within the anterior compartment muscles. Ankle MRI showed extensive tenosynovitis and cellulitis involving the anterior compartment without evidence of osteomyelitis. He was treated by podiatry and is s/p debridement and VAC placement No prior abx use Clx are negative @ 24 hrs Review of Systems Except as stated in HPI: all other systems reviewed are Neg Past Family Social History Allergies: Coded Allergies: penicillin G (Verified Allergy, Severe, Dizziness, 11/10/17) Past Medical History Hypertension Past Surgical History Left wrist surgery Active Ordered Medications Medications where reviewed in EMR Antibiotics Include: azactam flagyl vanco Family History Both parents with coronary artery disease. Social History Quit alcohol approximately 2 months ago. Denies tobacco and illicit drugs. Physical Exam Vital Signs Vital Signs Date Time Temp Pulse Resp B/P (MAP) Pulse Ox O2 Delivery O2 Flow Rate FiO2 11/14/17 12:00 97.2 60 20 133/65 (87) 99 11/14/17 08:00 97.1 58 18 140/84 (102) 98 11/14/17 04:00 98.1 58 18 123/62 (82) 96 11/14/17 00:00 97.5 57 18 120/59 (79) 99 11/13/17 20:00 97.6 65 16 171/87 (115) 96 11/13/17 16:00 97.7 64 17 114/52 (72) 93 Physical Exam CONSTITUTIONAL/GENERAL: This is an adequately nourished patient, in no apparent distress. TUBES/LINES/DRAINS: SKIN: No jaundice, rashes, or lesions. Skin temperature appropriate. Not diaphoretic. HEAD: Atraumatic. Normocephalic. EYES: Pupils equal and round and reactive. Extraocular motions intact. No scleral icterus. No injection or drainage. Fundi not examined. ENT: Hearing grossly normal. Nose without bleeding or purulent drainage. Throat without visible erythema, exudates, masses, or lesions. poor dentition NECK: Trachea midline. Supple, nontender. No palpable thyroid enlargement or nodularity. CARDIOVASCULAR: Regular rate and rhythm without murmurs, gallops, or rubs. No JVD. Peripheral pulses symmetric. RESPIRATORY/CHEST: Symmetric, unlabored respirations. Clear to auscultation. Breath sounds equal bilaterally. No wheezes, rales, or rhonchi. GASTROINTESTINAL: Abdomen soft, non-tender, nondistended. No hepato-splenomegaly , or palpable masses. No guarding. Bowel sounds present. GENITOURINARY: Without palpable bladder distension. MUSCULOSKELETAL: Extremities without clubbing, cyanosis, Minimla LLE edema. Prominent RLE with tree bark gillespie surgical dressing and VAC in palce with serosang dc No joint tenderness or effusion noted. No calf tenderness. No mottling or clubbing. Toes with extensive onychomychosis visualised skin is very dry and peeling NEUROLOGICAL: Awake and alert. Motor and sensory grossly within normal limits. Follows commands. Clear speech. Moves all extremities. PSYCHIATRIC: No obvious anxiety/depression. no apparent hallucinations or other psychotic thought process. Laboratory Date/Time Source Procedure Growth Status 11/10/17 19:25 Blood Peripheral Aerobic Blood Culture - Preliminary NO GROWTH IN 4 DAYS Resulted 11/10/17 19:25 Blood Peripheral Anaerobic Blood Culture - Preliminary NO GROWTH IN 4 DAYS Resulted 11/12/17 22:52 Abscess Leg Fungal Smear - Final NO FUNGAL ELEMENTS SEEN. Resulted 11/12/17 22:52 Abscess Leg Fungal Culture Pending Resulted Result Diagram: 11/13/17 0519 11/13/17 0519 Imaging Last Impressions Lower Extremity MRI 11/11/17 0000 Signed Impressions: Service Date/Time: Saturday, November 11, 2017 09:02 - CONCLUSION: 1. There is a subcutaneous rim-enhancing fluid collection suspicious for abscess located along the anterolateral aspect of the proximal and mid leg measuring 6.4 x 1.2 x 20.4 cm. This collection is superficial to the anterior muscle compartment. There are no findings to indicate osteomyelitis. 2. Mild intramuscular and fascial edema within the anterior compartment muscles. Phil Villanueva MD Ankle MRI 11/11/17 0000 Signed Impressions: Service Date/Time: Saturday, November 11, 2017 18:27 - CONCLUSION: 1. Extensive tenosynovitis and cellulitis involving the anterior compartment without evidence of osteomyelitis. Al Jhaveri MD Foot X-Ray 11/10/17 0000 Signed Impressions: Service Date/Time: Friday, November 10, 2017 19:03 - CONCLUSION: 1. Osteopenia. No acute fracture. Dada Cardona MD Assessment and Plan Assessment and Plan R ankle abscess, sp surgical debridement and VAC NO osteo Infection developped in chronic venostasis settings PCN allergy - severe; unawake of post Keflex use - follow up op clx - will adjust abx per clx report Ursula Salas MD Nov 14, 2017 12:57
[2017-11-14 14:42] LABS: HEMOGLOBIN A1C 4.4 % (4.3-6.0)
[2017-11-14 16:00] VITALS: BP 153/72; PULSE 65; RESP 18; TEMP 98.2; O2SAT 97
--- NOTE | 2017-11-14 18:31 | HHI.PR ---
Subjective Remarks Patient seen bedside this evening. Denies nausea, vomiting, fevers, or chills. Denies calf pain. Resting comfortably. Objective Vital Signs Date Time Temp Pulse Resp B/P (MAP) Pulse Ox O2 Delivery O2 Flow Rate FiO2 11/14/17 16:00 98.2 65 18 153/72 (99) 97 11/14/17 12:00 97.2 60 20 133/65 (87) 99 11/14/17 08:00 97.1 58 18 140/84 (102) 98 11/14/17 04:00 98.1 58 18 123/62 (82) 96 11/14/17 00:00 97.5 57 18 120/59 (79) 99 11/13/17 20:00 97.6 65 16 171/87 (115) 96 I/O 11/13/17 11/13/17 11/13/17 11/14/17 11/14/17 11/14/17 07:00 15:00 23:00 07:00 15:00 23:00 Intake Total 1765 ml 525 ml 1660 ml 725 ml 480 ml 1700 ml Output Total 1715 ml 50 ml 2575 ml 925 ml 1550 ml Balance 50 ml 475 ml -915 ml -200 ml 480 ml 150 ml Intake Oral 540 ml 1560 ml 1600 ml IV Total 725 ml 525 ml 100 ml 725 ml 480 ml 100 ml Other 500 ml Output Urine Total 1700 ml 2550 ml 900 ml 1550 ml Drainage Total 50 ml 25 ml 25 ml Estimated Blood Loss 15 ml # Bowel Movements 1 2 1 0 Result Diagram: 11/13/17 0519 11/13/17 0519 Imaging Last Impressions Lower Extremity MRI 11/11/17 0000 Signed Impressions: Service Date/Time: Saturday, November 11, 2017 09:02 - CONCLUSION: 1. There is a subcutaneous rim-enhancing fluid collection suspicious for abscess located along the anterolateral aspect of the proximal and mid leg measuring 6.4 x 1.2 x 20.4 cm. This collection is superficial to the anterior muscle compartment. There are no findings to indicate osteomyelitis. 2. Mild intramuscular and fascial edema within the anterior compartment muscles. Phil Villanueva MD Ankle MRI 11/11/17 0000 Signed Impressions: Service Date/Time: Saturday, November 11, 2017 18:27 - CONCLUSION: 1. Extensive tenosynovitis and cellulitis involving the anterior compartment without evidence of osteomyelitis. Al Jhaveri MD Foot X-Ray 11/10/17 0000 Signed Impressions: Service Date/Time: Friday, November 10, 2017 19:03 - CONCLUSION: 1. Osteopenia. No acute fracture. Dada Cardona MD Procedures Postop day 2 Patient is status post incision and drainage of right proximal leg abscess Status post debridement and irrigation of anterior leg ulcer with wound VAC placement Status post debridement irrigation of plantar heel wound Other Results Microbiology Date/Time Source Procedure Growth Status 11/10/17 19:25 Blood Peripheral Aerobic Blood Culture - Preliminary NO GROWTH IN 4 DAYS Resulted 11/10/17 19:25 Blood Peripheral Anaerobic Blood Culture - Preliminary NO GROWTH IN 4 DAYS Resulted 11/12/17 22:52 Abscess Leg Fungal Smear - Final NO FUNGAL ELEMENTS SEEN. Resulted 11/12/17 22:52 Abscess Leg Fungal Culture Pending Resulted Objective Remarks Lower extremity physical exam: Vascular: Dorsalis pedis 1/4, posterior tibial diminished. Capillary refill time within normal limits to digits 5 bilateral foot. Edema present right lower extremity Neuro: Gross sensation intact to bilateral lower extremity. Pinpoint sensation decreased. No hyperalgesia noted to bilateral lower extremity Dermatology: Anterior ankle ulcer measuring approximately 12 cm x 6 cm encompassing entire anterior ankle with tibialis anterior tendon exposed and probed to bone, granular base. Improvement noted to anterior ankle ulcer. Anterior right lower extremity proximal tibia with no active drainage incision to anterior proximal leg skin well coapted and sutures intact. Right second digit distal ulcer resolving and epithelialization present. Musculoskeletal: No tenderness on palpation to right lower extremity. Hammertoes noted to right lower extremity 2 through 5. Medications and IVs Current Medications Medications (Trade) Dose Ordered Sig/Rachel Route Start Time Stop Time Status Last Admin Pharmacy Profile Note 0 ml @ 0 mls/hr UNSCH OTHER 11/10/17 21:30 Aztreonam 2000 mg/ Sodium Chloride 100 ml @ 200 mls/hr Q6H IV 11/11/17 03:00 11/14/17 14:54 (NS Flush) 2 ml UNSCH PRN IV FLUSH 11/10/17 21:30 (NS Flush) 2 ml BID IV FLUSH 11/11/17 09:00 11/14/17 08:27 (Tylenol) 650 mg Q4H PRN PO 11/10/17 21:30 (Zofran Inj) 4 mg Q6H PRN IVP 11/10/17 21:30 (Narcan Inj) 0.4 mg UNSCH PRN IV PUSH 11/10/17 21:30 (Monika-Colace) 1 tab BID PO 11/11/17 09:00 11/14/17 08:27 (Milk Of Magnesia Liq) 30 ml Q12H PRN PO 11/10/17 21:30 (Senokot) 17.2 mg Q12H PRN PO 11/10/17 21:30 (Dulcolax Supp) 10 mg DAILY PRN RECTAL 11/10/17 21:30 (Lactulose Liq) 30 ml DAILY PRN PO 11/10/17 21:30 (Microzide) 12.5 mg DAILY PO 11/11/17 09:00 11/14/17 08:27 (Prinivil) 40 mg DAILY PO 11/11/17 09:00 11/14/17 08:27 Lactated Ringer's 1,000 ml @ 30 mls/hr Q24H PRN IV 11/12/17 15:45 11/15/17 15:44 Sodium Chloride 500 ml @ 30 mls/hr [id number] PRN IV 11/12/17 15:45 11/15/17 15:44 (Lopressor) 25 mg GROUND HAND PRN PO 11/12/17 15:45 11/15/17 15:44 (Betadine 5% Antisepsis Kit) 1 applic GROUND HAND PRN EACH NARE 11/12/17 15:45 11/15/17 15:44 (Chlorhexidine 2% Cloth) 3 pack GROUND HAND PRN TOPICAL 11/12/17 15:45 11/15/17 15:44 (Flagyl) 500 mg Q8HR PO 11/13/17 14:00 11/14/17 12:18 (Lovenox Inj) 40 mg Q24H SQ 11/13/17 12:00 11/14/17 12:18 Vancomycin HCl 2300 mg/Sodium Chloride 523 ml @ 250 mls/hr Q12H IV 11/15/17 00:00 Miscellaneous Information SPECIFIC LAB TO BE DRAWN:[facility] DATE TO BE DROneal.. ONCE ONCE .XX 11/16/17 11:45 11/16/17 11:46 Assessment and Plan Assessment and Plan 62-year-old male with right anterior ankle ulcer with exposed tendon and superficial draining sinus to proximal leg; postop day 2 Status post incision and drainage of right proximal leg abscess Status post debridement and irrigation of anterior leg ulcer with wound VAC placement Status post debridement irrigation of plantar heel wound Patient examined and evaluated with all questions answered Wound VAC removed with improvement noted to anterior ankle ulcer Deep wound culture obtained of anterior ankle Please continue IV antibiotics Will reevaluate anterior ankle wound Friday before discharge planning Appreciate ID consult Patient will need to be discharged on IV antibiotics as well as home health care as he failed discharge on oral antibiotics and self care on last admission Care consult recommended to arrange for appropriate patient care once discharged Monica Dwyer DPM Nov 14, 2017 18:31
[2017-11-14 20:00] VITALS: BP 110/78; PULSE 73; RESP 20; TEMP 97.8; O2SAT 98
[2017-11-15] VITALS: BP 172/82; PULSE 65; RESP 20; TEMP 98; O2SAT 95
[2017-11-15] MEDS: VANCOMYCIN INJ 2,300 MG in SODIUM CHLORID 0.9% 500 ML INJ 500 ML IV SCH ×3 (00:14→23:55)
[2017-11-15] MEDS: metroNIDAZOLE 500 MG TAB PO SCH ×3 (04:54→20:50)
[2017-11-15] MEDS: AZTREONAM INJ 2,000 MG in SODIUM CHLORIDE 0.9% INJ 100 ML IV SCH ×4 (04:57→20:50)
[2017-11-15 08:00] VITALS: BP 133/81; PULSE 58; RESP 17; TEMP 96.7; O2SAT 96
[2017-11-15] MEDS: DOCUSATE SODIUM 50 MG/SENNA 8.6 MG TAB PO SCH ×2 (09:00→20:50)
[2017-11-15 09:27] LABS: CREATININE 0.74 MG/DL (0.60-1.30)
[2017-11-15] MEDS: HYDROCHLOROTHIAZIDE 12.5 MG CAP PO SCH (09:29)
[2017-11-15] MEDS: LISINOPRIL 20 MG TAB PO SCH (09:30)
[2017-11-15] MEDS: SODIUM CHLORIDE 0.9% FLUSH 10 ML FLUSH IV FLUSH SCH ×2 (09:32→20:50)
[2017-11-15] MEDS: COLLAGENASE OINT 30 GM TUBE TOPICAL SCH (10:52)
[2017-11-15] MEDS: ENOXAPARIN SODIUM 40 MG/0.4 ML SYRINGE SQ SCH (11:31)
--- NOTE | 2017-11-15 11:36 | HHI.PR ---
Subjective Remarks Follow-up right lower extremity chronic wounds with superimposed cellulitis status post I&D wound VAC placement 11/13/17-patient seen and examined, denies any significant right lower extremity pain. Currently afebrile. 11/14/17-patient seen and examined, afebrile, no acute event overnight, taking by mouth without any complication nausea and vomiting. 11/15/17-patient seen and examined, stable, continue by mouth without any confusion nausea vomiting. Afebrile. Objective Vitals Vital Signs Date Time Temp Pulse Resp B/P (MAP) Pulse Ox O2 Delivery O2 Flow Rate FiO2 11/15/17 08:00 96.7 58 17 133/81 (98) 96 11/15/17 00:00 98.0 65 20 172/82 (112) 95 11/14/17 20:00 97.8 73 20 110/78 (89) 98 11/14/17 16:00 98.2 65 18 153/72 (99) 97 11/14/17 12:00 97.2 60 20 133/65 (87) 99 I/O 11/14/17 11/14/17 11/14/17 11/15/17 11/15/17 11/15/17 07:00 15:00 23:00 07:00 15:00 23:00 Intake Total 725 ml 480 ml 1700 ml 723 ml Output Total 925 ml 1550 ml 1200 ml Balance -200 ml 480 ml 150 ml -477 ml Intake Oral 1600 ml IV Total 725 ml 480 ml 100 ml 723 ml Output Urine Total 900 ml 1550 ml 1200 ml Drainage Total 25 ml 0 ml # Bowel Movements 1 0 1 Result Diagram: 11/13/17 0519 11/15/17 0830 Objective Remarks GENERAL: NAD SKIN: Warm and dry. HEAD: Normocephalic. EYES: No scleral icterus. No injection or drainage. NECK: Supple, trachea midline. No JVD or lymphadenopathy. CARDIOVASCULAR: Regular rate and rhythm without murmurs, gallops, or rubs. RESPIRATORY: Breath sounds equal bilaterally. No accessory muscle use. GASTROINTESTINAL: Abdomen soft, non-tender, nondistended. MUSCULOSKELETAL: No cyanosis, or edema. dressing over right foot with wound vac in place BACK: Nontender without obvious deformity. No CVA tenderness. Procedures 1. Incision and drainage of proximal leg abscess 2. Debridement and irrigation of anterior ankle wound 3. Debridement irrigation of plantar posterior heel ulcer A/P Problem List: (1) Abscess of right foot ICD Code: L02.611 - Cutaneous abscess of right foot (2) Cellulitis of foot, right ICD Code: L03.115 - Cellulitis of right lower limb (3) Hypokalemia ICD Code: E87.6 - Hypokalemia (4) Blood glucose elevated ICD Code: R73.9 - Hyperglycemia, unspecified Assessment and Plan 62-year-old man with Right foot abscess with surrounding cellulitis Status post I&D with wound VAC placement Currently on IV antibiotics including aztreonam and Flagyl PO Wound culture NTD Pain management accordingly Management per podiatry Wound VAC change per protocol Infectious disease specialist consultation pending as patient may need IV antibiotic on discharge Hypertension Continue with hydrochlorothiazide and lisinopril Hypokalemia s/p potassium 60 mEq 1 Elevated blood glucose Hemoglobin A1c 4.3 Mauricio Gallardo MD Nov 15, 2017 11:36
[2017-11-15 12:00] VITALS: BP 127/69; PULSE 69; RESP 17; TEMP 97.2; O2SAT 95
[2017-11-15 16:00] VITALS: BP 150/81; PULSE 62; RESP 16; TEMP 97.6; O2SAT 98
[2017-11-15 20:00] VITALS: BP 135/82; PULSE 69; RESP 19; TEMP 97; O2SAT 95
[2017-11-16] VITALS: BP 151/82; PULSE 61; RESP 19; TEMP 97.9; O2SAT 98
[2017-11-16] MEDS: AZTREONAM INJ 2,000 MG in SODIUM CHLORIDE 0.9% INJ 100 ML IV SCH ×4 (04:24→20:14)
[2017-11-16] MEDS: metroNIDAZOLE 500 MG TAB PO SCH ×3 (06:36→20:14)
[2017-11-16 07:00] LABS: AUTOMATED NEUTROPHIL # 1.7 TH/MM3 (1.8-7.7); BASOPHIL # 0.1 TH/MM3 (0-0.2); BASOPHIL % 1.5 % (0.0-2.0); EOSINOPHIL # 0.2 TH/MM3 (0-0.4); EOSINOPHIL % 3.7 % (0.0-4.0); HEMATOCRIT 34.9 % (39.0-51.0); HEMOGLOBIN 11.9 GM/DL (13.0-17.0); LYMPH % 45.9 % (9.0-44.0); LYMPHOCYTE # 2.1 TH/MM3 (1.0-4.8); MEAN CELL VOLUME 91.6 FL (80.0-100.0); MEAN CORPUSCULAR HEMOGLOBIN 31.4 PG (27.0-34.0); MEAN CORPUSCULAR HGB CONC 34.2 % (32.0-36.0); MEAN PLATELET VOLUME 7.8 FL (7.0-11.0); MONO % 13.3 % (0.0-8.0); MONOCYTE # 0.6 TH/MM3 (0-0.9); NEUT % 35.6 % (16.0-70.0); PLATELET COUNT 168 TH/MM3 (150-450); RED BLOOD COUNT 3.81 MIL/MM3 (4.50-5.90); RED CELL DISTRIBUTION WIDTH 14.2 % (11.6-17.2); WHITE BLOOD COUNT 4.6 TH/MM3 (4.0-11.0)
[2017-11-16 07:24] LABS: CALCIUM 8.7 MG/DL (8.5-10.1); CREATININE 0.72 MG/DL (0.60-1.30)
[2017-11-16 08:00] VITALS: BP 142/67; PULSE 58; RESP 17; TEMP 97.4; O2SAT 100
[2017-11-16] MEDS: DOCUSATE SODIUM 50 MG/SENNA 8.6 MG TAB PO SCH ×2 (08:59→20:14)
[2017-11-16] MEDS: LISINOPRIL 20 MG TAB PO SCH (08:59)
[2017-11-16] MEDS: COLLAGENASE OINT 30 GM TUBE TOPICAL SCH (09:00)
[2017-11-16] MEDS: SODIUM CHLORIDE 0.9% FLUSH 10 ML FLUSH IV FLUSH SCH ×2 (09:00→20:14)
[2017-11-16] MEDS: HYDROCHLOROTHIAZIDE 12.5 MG CAP PO SCH (09:00)
--- NOTE | 2017-11-16 10:34 | HHI.PR ---
Subjective Remarks Follow-up right lower extremity chronic wounds with superimposed cellulitis status post I&D wound VAC placement 11/13/17-patient seen and examined, denies any significant right lower extremity pain. Currently afebrile. 11/14/17-patient seen and examined, afebrile, no acute event overnight, taking by mouth without any complication nausea and vomiting. 11/15/17-patient seen and examined, stable, continue by mouth without any confusion nausea vomiting. Afebrile. 11/16/17-patient seen and examined, no complaint and afebrile Objective Vitals Vital Signs Date Time Temp Pulse Resp B/P (MAP) Pulse Ox O2 Delivery O2 Flow Rate FiO2 11/16/17 08:00 97.4 58 17 142/67 (92) 100 11/16/17 00:00 97.9 61 19 151/82 (105) 98 11/15/17 20:00 97.0 69 19 135/82 (99) 95 11/15/17 16:00 97.6 62 16 150/81 (104) 98 11/15/17 12:00 97.2 69 17 127/69 (88) 95 I/O 11/15/17 11/15/17 11/15/17 11/16/17 11/16/17 11/16/17 07:00 15:00 23:00 07:00 15:00 23:00 Intake Total 723 ml 100 ml 1823 ml 120 ml Output Total 1200 ml 3950 ml 600 ml Balance -477 ml 100 ml -2127 ml -480 ml Intake Oral 1200 ml 120 ml IV Total 723 ml 100 ml 623 ml Output Urine Total 1200 ml 3950 ml 600 ml Drainage Total 0 ml # Bowel Movements 1 2 0 Result Diagram: 11/16/17 0608 11/16/17 0608 Objective Remarks GENERAL: NAD SKIN: Warm and dry. HEAD: Normocephalic. EYES: No scleral icterus. No injection or drainage. NECK: Supple, trachea midline. No JVD or lymphadenopathy. CARDIOVASCULAR: Regular rate and rhythm without murmurs, gallops, or rubs. RESPIRATORY: Breath sounds equal bilaterally. No accessory muscle use. GASTROINTESTINAL: Abdomen soft, non-tender, nondistended. MUSCULOSKELETAL: No cyanosis, or edema. dressing over right foot with wound vac in place BACK: Nontender without obvious deformity. No CVA tenderness. Procedures 1. Incision and drainage of proximal leg abscess 2. Debridement and irrigation of anterior ankle wound 3. Debridement irrigation of plantar posterior heel ulcer A/P Problem List: (1) Abscess of right foot ICD Code: L02.611 - Cutaneous abscess of right foot (2) Cellulitis of foot, right ICD Code: L03.115 - Cellulitis of right lower limb (3) Hypokalemia ICD Code: E87.6 - Hypokalemia (4) Blood glucose elevated ICD Code: R73.9 - Hyperglycemia, unspecified Assessment and Plan 62-year-old man with Right foot abscess with surrounding cellulitis Status post I&D with wound VAC placement Currently on IV antibiotics including aztreonam and Flagyl PO Wound culture NTD Pain management accordingly Management per podiatry Wound VAC change per protocol Infectious disease specialist appreciated Hypertension Continue with hydrochlorothiazide and lisinopril Hypokalemia s/p potassium 60 mEq 1 Elevated blood glucose Hemoglobin A1c 4.3 Mauricio Gallardo MD Nov 16, 2017 10:34
[2017-11-16] MEDS ORDERED: POTASSIUM CHLORIDE 10 MEQ CONTROLLED RELEASE TAB PO ONE (10:45)
[2017-11-16] MEDS ORDERED: PHARMACY ORDERED LAB ONE (11:45)
[2017-11-16 12:00] VITALS: BP 146/92; PULSE 75; RESP 17; TEMP 97.4; O2SAT 92
[2017-11-16] MEDS: ENOXAPARIN SODIUM 40 MG/0.4 ML SYRINGE SQ SCH (12:50)
--- NOTE | 2017-11-16 12:55 | HHI.FF ---
Face to Face Verification Diagnosis: (1) Abscess of right foot (2) Cellulitis of foot, right Home Health Nursing Order: Wound care and dressing changes Instructions: Please change wound vac every 48 hours to right anterior ankle ulcer. OK to see patient 3xs per week. Please Apply santyl and DSD to plantar heel eschar, right foot. Please apply adaptic and dry sterile dressing to proximal leg, right leg. I have seen patient Denny Lanier on 11/16/17. My clinical findings support the need for the requested home health care services because: Deconditioned w/ increased weakness Limited ability to care for self Infection w/ risk of complications I certify that my clinical findings support that this patient is homebound because: Post-op weakness Unsteady gait/balance Unable to use public transportation Monica Dwyer DPM Nov 16, 2017 12:55
--- NOTE | 2017-11-16 12:57 | HHI.PR ---
Subjective Remarks Patient seen bedside this morning. Denies nausea, vomiting, fevers, or chills. Denies calf pain. Resting comfortably. States he was told he would be able to have home health care come in to take care of wound VAC changes. Objective Vital Signs Date Time Temp Pulse Resp B/P (MAP) Pulse Ox O2 Delivery O2 Flow Rate FiO2 11/16/17 12:00 97.4 75 17 146/92 (110) 92 11/16/17 08:00 97.4 58 17 142/67 (92) 100 11/16/17 00:00 97.9 61 19 151/82 (105) 98 11/15/17 20:00 97.0 69 19 135/82 (99) 95 11/15/17 16:00 97.6 62 16 150/81 (104) 98 I/O 11/15/17 11/15/17 11/15/17 11/16/17 11/16/17 11/16/17 07:00 15:00 23:00 07:00 15:00 23:00 Intake Total 723 ml 100 ml 1823 ml 120 ml Output Total 1200 ml 3950 ml 600 ml Balance -477 ml 100 ml -2127 ml -480 ml Intake Oral 1200 ml 120 ml IV Total 723 ml 100 ml 623 ml Output Urine Total 1200 ml 3950 ml 600 ml Drainage Total 0 ml # Bowel Movements 1 2 0 Result Diagram: 11/16/17 0608 11/16/17 0608 Imaging Last Impressions Lower Extremity MRI 11/11/17 0000 Signed Impressions: Service Date/Time: Saturday, November 11, 2017 09:02 - CONCLUSION: 1. There is a subcutaneous rim-enhancing fluid collection suspicious for abscess located along the anterolateral aspect of the proximal and mid leg measuring 6.4 x 1.2 x 20.4 cm. This collection is superficial to the anterior muscle compartment. There are no findings to indicate osteomyelitis. 2. Mild intramuscular and fascial edema within the anterior compartment muscles. Phil Villanueva MD Ankle MRI 11/11/17 0000 Signed Impressions: Service Date/Time: Saturday, November 11, 2017 18:27 - CONCLUSION: 1. Extensive tenosynovitis and cellulitis involving the anterior compartment without evidence of osteomyelitis. Al Jhaveri MD Foot X-Ray 11/10/17 0000 Signed Impressions: Service Date/Time: Friday, November 10, 2017 19:03 - CONCLUSION: 1. Osteopenia. No acute fracture. Dada Cardona MD Procedures Postop day 4 Patient is status post incision and drainage of right proximal leg abscess Status post debridement and irrigation of anterior leg ulcer with wound VAC placement Status post debridement irrigation of plantar heel wound Other Results Microbiology Date/Time Source Procedure Growth Status 11/10/17 19:25 Blood Peripheral Aerobic Blood Culture - Final NO GROWTH IN 5 DAYS Complete 11/10/17 19:25 Blood Peripheral Anaerobic Blood Culture - Final NO GROWTH IN 5 DAYS Complete 11/14/17 18:40 Wound Ankle Gram Stain - Final Resulted 11/14/17 18:40 Wound Culture - Preliminary Group D Enterococcus Resulted Objective Remarks Lower extremity physical exam: Vascular: Dorsalis pedis 1/4, posterior tibial diminished. Capillary refill time within normal limits to digits 5 bilateral foot. Edema present right lower extremity Neuro: Gross sensation intact to bilateral lower extremity. Pinpoint sensation decreased. No hyperalgesia noted to bilateral lower extremity Dermatology: Anterior ankle ulcer measuring approximately 12 cm x 6 cm encompassing entire anterior ankle with tibialis anterior tendon exposed and probed to bone, granular base. Improvement noted to anterior ankle ulcer, epithelialization present to wound bed edges. Anterior right lower extremity proximal tibia with no active drainage incision to anterior proximal leg skin well coapted and sutures intact. Right second digit distal ulcer resolving and epithelialization present. Right plantar heel ulcer measuring 2 cm x 2 cm with 0.1 depth with eschar present and active sanguinous drainage. Musculoskeletal: No tenderness on palpation to right lower extremity. Hammertoes noted to right lower extremity 2 through 5. Medications and IVs Current Medications Medications (Trade) Dose Ordered Sig/Rachel Route Start Time Stop Time Status Last Admin Pharmacy Profile Note 0 ml @ 0 mls/hr UNSCH OTHER 11/10/17 21:30 Aztreonam 2000 mg/ Sodium Chloride 100 ml @ 200 mls/hr Q6H IV 11/11/17 03:00 11/16/17 12:49 (NS Flush) 2 ml UNSCH PRN IV FLUSH 11/10/17 21:30 (NS Flush) 2 ml BID IV FLUSH 11/11/17 09:00 11/16/17 09:00 (Tylenol) 650 mg Q4H PRN PO 11/10/17 21:30 (Zofran Inj) 4 mg Q6H PRN IVP 11/10/17 21:30 (Narcan Inj) 0.4 mg UNSCH PRN IV PUSH 11/10/17 21:30 (Monika-Colace) 1 tab BID PO 11/11/17 09:00 11/16/17 08:59 (Milk Of Magnesia Liq) 30 ml Q12H PRN PO 11/10/17 21:30 (Senokot) 17.2 mg Q12H PRN PO 11/10/17 21:30 (Dulcolax Supp) 10 mg DAILY PRN RECTAL 11/10/17 21:30 (Lactulose Liq) 30 ml DAILY PRN PO 11/10/17 21:30 (Microzide) 12.5 mg DAILY PO 11/11/17 09:00 11/16/17 09:00 (Prinivil) 40 mg DAILY PO 11/11/17 09:00 11/16/17 08:59 (Flagyl) 500 mg Q8HR PO 11/13/17 14:00 11/16/17 12:50 (Lovenox Inj) 40 mg Q24H SQ 11/13/17 12:00 11/16/17 12:50 Vancomycin HCl 2300 mg/Sodium Chloride 523 ml @ 250 mls/hr Q12H IV 11/15/17 00:00 11/15/17 23:55 (Santyl Oint) 1 applic DAILY TOPICAL 11/15/17 09:00 11/16/17 09:00 Assessment and Plan Assessment and Plan 62-year-old male with right anterior ankle ulcer with exposed tendon and superficial draining sinus to proximal leg; postop day 4 Status post incision and drainage of right proximal leg abscess Status post debridement and irrigation of anterior leg ulcer with wound VAC placement Status post debridement irrigation of plantar heel wound Patient examined and evaluated with all questions answered Wound VAC removed and replaced, continued improvement noted to anterior ankle ulcer Dry sterile dressing placed to proximal incision and drainage site, Santyl with moistened dry dressing placed to plantar heel Wound care/nursing to continue dressing changes while patient is in-house Anterior ankle ulcer wound culture growing enterococcus group D Patient okay to [place] para podiatry as long as appropriate outpatient management is available; patient will absolutely need home health care to perform wound VAC changes every 48 hours Secondary to degree of infection as well as readmission due to failing oral antibiotics for right lower extremity infection recommend at least 2 weeks of IV antibiotics Infectious disease to determine final outpatient antibiotics Appreciate ID consult Spoke with shoe parts caser who assured me patient would be able to go home with home health care to manage wound dressing as well as IV antibiotics Patient to follow-up with me, Dr. Monica Dwyer within 3-5 days of discharge Monica Dwyer DPM Nov 16, 2017 12:57
[2017-11-16] MEDS: VANCOMYCIN INJ 2,300 MG in SODIUM CHLORID 0.9% 500 ML INJ 500 ML IV SCH (12:59)
--- NOTE | 2017-11-16 15:34 | HHI.PR ---
Addendum to Inpatient Note Addendum Reason: Additional Documentation Additional Information Recd call from RN Jessica wound cultures with VRE. Patient on Vanco IV: will DC and start Dapto IV. to resume care in am. Josephine Hopson MD Nov 16, 2017 15:34
[2017-11-16 16:00] VITALS: BP 139/72; PULSE 63; RESP 16; TEMP 98.2; O2SAT 98
[2017-11-16] MEDS: SODIUM CHLORIDE 0.9% IV SCH (18:01)
[2017-11-16] MEDS: DAPTOMYCIN IV SCH (18:01)
[2017-11-16 20:00] VITALS: BP 140/69; PULSE 70; RESP 16; TEMP 98.9; O2SAT 98
[2017-11-17] VITALS: BP 142/65; PULSE 71; RESP 16; TEMP 98.6; O2SAT 97
[2017-11-17] MEDS: AZTREONAM INJ 2,000 MG in SODIUM CHLORIDE 0.9% INJ 100 ML IV SCH ×4 (04:10→21:45)
[2017-11-17] MEDS: metroNIDAZOLE 500 MG TAB PO SCH ×3 (04:10→21:46)
[2017-11-17 08:00] VITALS: BP 143/79; PULSE 77; RESP 18; TEMP 98; O2SAT 100
[2017-11-17] MEDS: DOCUSATE SODIUM 50 MG/SENNA 8.6 MG TAB PO SCH ×2 (09:00→21:00)
[2017-11-17] MEDS: COLLAGENASE OINT 30 GM TUBE TOPICAL SCH (09:00)
[2017-11-17] MEDS: SODIUM CHLORIDE 0.9% FLUSH 10 ML FLUSH IV FLUSH SCH ×2 (09:12→21:45)
[2017-11-17] MEDS: LISINOPRIL 20 MG TAB PO SCH (09:13)
[2017-11-17] MEDS: HYDROCHLOROTHIAZIDE 12.5 MG CAP PO SCH (09:13)
[2017-11-17 09:46] LABS: CREATININE 0.65 MG/DL (0.60-1.30)
--- NOTE | 2017-11-17 10:57 | HHI.PR ---
Subjective Remarks Follow-up right lower extremity chronic wounds with superimposed cellulitis status post I&D wound VAC placement 11/13/17-patient seen and examined, denies any significant right lower extremity pain. Currently afebrile. 11/14/17-patient seen and examined, afebrile, no acute event overnight, taking by mouth without any complication nausea and vomiting. 11/15/17-patient seen and examined, stable, continue by mouth without any confusion nausea vomiting. Afebrile. 11/16/17-patient seen and examined, no complaint and afebrile 11/17/17-patient seen and examined, doing well. No acute event overnight. Afebrile Objective Vitals Vital Signs Date Time Temp Pulse Resp B/P (MAP) Pulse Ox O2 Delivery O2 Flow Rate FiO2 11/17/17 08:00 98.0 77 18 143/79 (100) 100 11/17/17 00:00 98.6 71 16 142/65 (90) 97 11/16/17 20:00 98.9 70 16 140/69 (92) 98 11/16/17 16:00 98.2 63 16 139/72 (94) 98 11/16/17 12:00 97.4 75 17 146/92 (110) 92 I/O 11/16/17 11/16/17 11/16/17 11/17/17 11/17/17 11/17/17 07:00 15:00 23:00 07:00 15:00 23:00 Intake Total 120 ml 2023 ml 300 ml Output Total 600 ml 4100 ml 1300 ml Balance -480 ml -2077 ml -1000 ml Intake Oral 120 ml 1200 ml 200 ml IV Total 823 ml 100 ml Output Urine Total 600 ml 4100 ml 1300 ml Drainage Total 0 ml 0 ml # Bowel Movements 0 2 0 Result Diagram: 11/16/17 0608 11/17/17 0800 Imaging Last Impressions Lower Extremity MRI 11/11/17 0000 Signed Impressions: Service Date/Time: Saturday, November 11, 2017 09:02 - CONCLUSION: 1. There is a subcutaneous rim-enhancing fluid collection suspicious for abscess located along the anterolateral aspect of the proximal and mid leg measuring 6.4 x 1.2 x 20.4 cm. This collection is superficial to the anterior muscle compartment. There are no findings to indicate osteomyelitis. 2. Mild intramuscular and fascial edema within the anterior compartment muscles. Phil Villanueva MD Ankle MRI 11/11/17 0000 Signed Impressions: Service Date/Time: Saturday, November 11, 2017 18:27 - CONCLUSION: 1. Extensive tenosynovitis and cellulitis involving the anterior compartment without evidence of osteomyelitis. Al Jhaveri MD Foot X-Ray 11/10/17 0000 Signed Impressions: Service Date/Time: Friday, November 10, 2017 19:03 - CONCLUSION: 1. Osteopenia. No acute fracture. Dada Cardona MD Objective Remarks GENERAL: NAD SKIN: Warm and dry. HEAD: Normocephalic. EYES: No scleral icterus. No injection or drainage. NECK: Supple, trachea midline. No JVD or lymphadenopathy. CARDIOVASCULAR: Regular rate and rhythm without murmurs, gallops, or rubs. RESPIRATORY: Breath sounds equal bilaterally. No accessory muscle use. GASTROINTESTINAL: Abdomen soft, non-tender, nondistended. MUSCULOSKELETAL: No cyanosis, or edema. dressing over right foot with wound vac in place BACK: Nontender without obvious deformity. No CVA tenderness. Procedures 1. Incision and drainage of proximal leg abscess 2. Debridement and irrigation of anterior ankle wound 3. Debridement irrigation of plantar posterior heel ulcer Status post debridement irrigation of plantar heel wound A/P Problem List: (1) Abscess of right foot ICD Code: L02.611 - Cutaneous abscess of right foot (2) Cellulitis of foot, right ICD Code: L03.115 - Cellulitis of right lower limb (3) Hypokalemia ICD Code: E87.6 - Hypokalemia (4) Blood glucose elevated ICD Code: R73.9 - Hyperglycemia, unspecified Assessment and Plan 62-year-old man with Right foot abscess with surrounding cellulitis Status post I&D with wound VAC placement Currently on IV antibiotics including aztreonam and Cubicin Wound culture +Faecalis VRE Pain management accordingly Management per podiatry Wound VAC change per protocol Infectious disease specialist appreciated Hypertension Continue with hydrochlorothiazide and lisinopril Hypokalemia s/p potassium 60 mEq 1 Elevated blood glucose Hemoglobin A1c 4.3 Mauricio Gallardo MD Nov 17, 2017 10:57
[2017-11-17 12:00] VITALS: BP 127/72; PULSE 75; RESP 18; TEMP 97.1; O2SAT 98
[2017-11-17] MEDS: ENOXAPARIN SODIUM 40 MG/0.4 ML SYRINGE SQ SCH (13:49)
[2017-11-17 16:00] VITALS: BP 110/80; PULSE 69; RESP 18; TEMP 98.2; O2SAT 97
[2017-11-17] MEDS: DAPTOMYCIN IV SCH (18:27)
[2017-11-17] MEDS: SODIUM CHLORIDE 0.9% IV SCH (18:27)
[2017-11-17 20:00] VITALS: BP 162/80; PULSE 58; RESP 18; TEMP 98.1; O2SAT 97
[2017-11-18] VITALS: BP 127/77; PULSE 71; RESP 18; TEMP 97.6; O2SAT 96
[2017-11-18] MEDS: AZTREONAM INJ 2,000 MG in SODIUM CHLORIDE 0.9% INJ 100 ML IV SCH ×2 (03:33→09:16)
[2017-11-18] MEDS: metroNIDAZOLE 500 MG TAB PO SCH (06:09)
[2017-11-18 08:00] VITALS: BP 125/73; PULSE 68; RESP 17; TEMP 97.9; O2SAT 95
[2017-11-18] MEDS: DOCUSATE SODIUM 50 MG/SENNA 8.6 MG TAB PO SCH (09:00)
[2017-11-18] MEDS: COLLAGENASE OINT 30 GM TUBE TOPICAL SCH (09:00)
[2017-11-18] MEDS: LISINOPRIL 20 MG TAB PO SCH (09:15)
[2017-11-18] MEDS: HYDROCHLOROTHIAZIDE 12.5 MG CAP PO SCH (09:16)
[2017-11-18] MEDS: SODIUM CHLORIDE 0.9% FLUSH 10 ML FLUSH IV FLUSH SCH (09:16)
--- NOTE | 2017-11-18 10:49 | HHI.PR ---
Subjective Remarks Follow-up right lower extremity chronic wounds with superimposed cellulitis status post I&D wound VAC placement 11/13/17-patient seen and examined, denies any significant right lower extremity pain. Currently afebrile. 11/14/17-patient seen and examined, afebrile, no acute event overnight, taking by mouth without any complication nausea and vomiting. 11/15/17-patient seen and examined, stable, continue by mouth without any confusion nausea vomiting. Afebrile. 11/16/17-patient seen and examined, no complaint and afebrile 11/17/17-patient seen and examined, doing well. No acute event overnight. Afebrile 11/18/17-patient seen and examined, no complaint. No pain to RLE Objective Vitals Vital Signs Date Time Temp Pulse Resp B/P (MAP) Pulse Ox O2 Delivery O2 Flow Rate FiO2 11/18/17 08:00 97.9 68 17 125/73 (90) 95 11/18/17 00:00 97.6 71 18 127/77 (94) 96 11/17/17 20:00 98.1 58 18 162/80 (107) 97 11/17/17 16:00 98.2 69 18 110/80 (90) 97 11/17/17 12:00 97.1 75 18 127/72 (90) 98 I/O 11/17/17 11/17/17 11/17/17 11/18/17 11/18/17 11/18/17 07:00 15:00 23:00 07:00 15:00 23:00 Intake Total 300 ml 2000 ml 340 ml Output Total 1300 ml 1450 ml 850 ml Balance -1000 ml 550 ml -510 ml Intake Oral 200 ml 1800 ml 240 ml IV Total 100 ml 200 ml 100 ml Output Urine Total 1300 ml 1450 ml 850 ml Drainage Total 0 ml # Bowel Movements 0 2 Result Diagram: 11/16/17 0608 11/17/17 0800 Imaging Last Impressions Lower Extremity MRI 11/11/17 0000 Signed Impressions: Service Date/Time: Saturday, November 11, 2017 09:02 - CONCLUSION: 1. There is a subcutaneous rim-enhancing fluid collection suspicious for abscess located along the anterolateral aspect of the proximal and mid leg measuring 6.4 x 1.2 x 20.4 cm. This collection is superficial to the anterior muscle compartment. There are no findings to indicate osteomyelitis. 2. Mild intramuscular and fascial edema within the anterior compartment muscles. Phil Villanueva MD Ankle MRI 11/11/17 0000 Signed Impressions: Service Date/Time: Saturday, November 11, 2017 18:27 - CONCLUSION: 1. Extensive tenosynovitis and cellulitis involving the anterior compartment without evidence of osteomyelitis. Al Jhaveri MD Foot X-Ray 11/10/17 0000 Signed Impressions: Service Date/Time: Friday, November 10, 2017 19:03 - CONCLUSION: 1. Osteopenia. No acute fracture. Dada Cardona MD Objective Remarks GENERAL: NAD SKIN: Warm and dry. HEAD: Normocephalic. EYES: No scleral icterus. No injection or drainage. NECK: Supple, trachea midline. No JVD or lymphadenopathy. CARDIOVASCULAR: Regular rate and rhythm without murmurs, gallops, or rubs. RESPIRATORY: Breath sounds equal bilaterally. No accessory muscle use. GASTROINTESTINAL: Abdomen soft, non-tender, nondistended. MUSCULOSKELETAL: No cyanosis, or edema. dressing over right foot with wound vac in place BACK: Nontender without obvious deformity. No CVA tenderness. Procedures 1. Incision and drainage of proximal leg abscess 2. Debridement and irrigation of anterior ankle wound 3. Debridement irrigation of plantar posterior heel ulcer Status post debridement irrigation of plantar heel wound A/P Problem List: (1) Abscess of right foot ICD Code: L02.611 - Cutaneous abscess of right foot (2) Cellulitis of foot, right ICD Code: L03.115 - Cellulitis of right lower limb (3) Hypokalemia ICD Code: E87.6 - Hypokalemia (4) Blood glucose elevated ICD Code: R73.9 - Hyperglycemia, unspecified Assessment and Plan 62-year-old man with Right foot abscess with surrounding cellulitis Status post I&D with wound VAC placement Currently on IV antibiotics including aztreonam and Cubicin Wound culture +Faecalis VRE Pain management accordingly Management per podiatry Wound VAC change per protocol Infectious disease specialist input appreciated Hypertension Continue with hydrochlorothiazide and lisinopril Hypokalemia s/p potassium 60 mEq 1 Elevated blood glucose Hemoglobin A1c 4.3 Mauricio Gallardo MD Nov 18, 2017 10:49
[2017-11-18] MEDS ORDERED: COLL30T TOPICAL (10:53)
--- NOTE | 2017-11-18 10:55 | HHI.DS ---
Discharge Summary Admission Date Nov 10, 2017 at 21:18 Discharge Date: Nov 18, 2017 Admitting Diagnosis chronic wound RLE r/o osteomyelitis (1) Abscess of right foot ICD Code: L02.611 - Cutaneous abscess of right foot (2) Cellulitis of foot, right ICD Code: L03.115 - Cellulitis of right lower limb (3) Hypokalemia ICD Code: E87.6 - Hypokalemia (4) Blood glucose elevated ICD Code: R73.9 - Hyperglycemia, unspecified Procedures 1. Incision and drainage of proximal leg abscess 2. Debridement and irrigation of anterior ankle wound 3. Debridement irrigation of plantar posterior heel ulcer Status post debridement irrigation of plantar heel wound Brief History - From Admission 62-year-old male with a past medical history significant for hypertension presents to the emergency department for evaluation of right lower extremity wounds. The patient reports he was sent by his potash flaker, Dr. Dwyer, for evaluation of a worsening right heel ulceration. The patient reports he is followed by his potash flaker and is supposed to have home health care come and change his dressings although secondary to lack of insurance this has not been arranged. The patient denies any fever/chills. Reports that he has been able to ambulate. Denies any associated pain. CBC/BMP: 11/16/17 0608 11/17/17 0800 Significant Findings Laboratory Tests Test 11/16/17 06:08 11/16/17 12:18 11/17/17 08:00 Red Blood Count 3.81 MIL/MM3 (4.50-5.90) Hemoglobin 11.9 GM/DL (13.0-17.0) Hematocrit 34.9 % (39.0-51.0) Lymphocytes (%) (Auto) 45.9 % (9.0-44.0) Monocytes (%) (Auto) 13.3 % (0.0-8.0) Neutrophils # (Auto) 1.7 TH/MM3 (1.8-7.7) Blood Urea Nitrogen 4 MG/DL (7-18) Random Glucose 113 MG/DL (74-106) Potassium Level 3.4 MEQ/L (3.5-5.1) Vancomycin Level Trough 17.2 MCG/ML (5.0-10.0) Imaging Last Impressions Lower Extremity MRI 11/11/17 0000 Signed Impressions: Service Date/Time: Saturday, November 11, 2017 09:02 - CONCLUSION: 1. There is a subcutaneous rim-enhancing fluid collection suspicious for abscess located along the anterolateral aspect of the proximal and mid leg measuring 6.4 x 1.2 x 20.4 cm. This collection is superficial to the anterior muscle compartment. There are no findings to indicate osteomyelitis. 2. Mild intramuscular and fascial edema within the anterior compartment muscles. Phil Villanueva MD Ankle MRI 11/11/17 0000 Signed Impressions: Service Date/Time: Saturday, November 11, 2017 18:27 - CONCLUSION: 1. Extensive tenosynovitis and cellulitis involving the anterior compartment without evidence of osteomyelitis. Al Jhaveri MD Foot X-Ray 11/10/17 0000 Signed Impressions: Service Date/Time: Friday, November 10, 2017 19:03 - CONCLUSION: 1. Osteopenia. No acute fracture. Dada Cardona MD PE at Discharge GENERAL: NAD SKIN: Warm and dry. HEAD: Normocephalic. EYES: No scleral icterus. No injection or drainage. NECK: Supple, trachea midline. No JVD or lymphadenopathy. CARDIOVASCULAR: Regular rate and rhythm without murmurs, gallops, or rubs. RESPIRATORY: Breath sounds equal bilaterally. No accessory muscle use. GASTROINTESTINAL: Abdomen soft, non-tender, nondistended. MUSCULOSKELETAL: No cyanosis, or edema. dressing over right foot with wound vac in place BACK: Nontender without obvious deformity. No CVA tenderness. Hospital Course While in the hospital, patient was treated for: Right foot abscess with surrounding cellulitis Status post I&D with wound VAC placement by Podiatry He was on IV antibiotics including aztreonam and Cubicin as well as PO Flagyl Wound culture +Faecalis VRE Pain management accordingly Wound VAC change per protocol Infectious disease specialist was consulted Hypertension Treated with hydrochlorothiazide and lisinopril Hypokalemia s/p potassium 60 mEq 1 Elevated blood glucose Hemoglobin A1c 4.3 Pt Condition on Discharge: Good Discharge Disposition: Disch w/ Home Health Serv Discharge Time: > 30 minutes Discharge Instructions DIET: Follow Instructions for: Heart Healthy Diet Activities you can perform: Non Weight Bearing Mauricio Gallardo MD Nov 18, 2017 10:55
[2017-11-18 12:00] VITALS: BP 127/77; PULSE 66; RESP 18; TEMP 98.2; O2SAT 96
[2017-11-18] MEDS: ENOXAPARIN SODIUM 40 MG/0.4 ML SYRINGE SQ SCH (12:37)
[2017-11-18] MEDS ORDERED: LINEZOLID 600 MG TAB PO SCH (13:00)
[2017-11-18] MEDS ORDERED: BACT800T5 PO (15:37)
[2017-11-18] MEDS ORDERED: ZYVO600T PO (15:37)
--- NOTE | 2017-11-18 15:49 | HHI.IDPN ---
Subjective Subjective Remarks pt was seen during dreissin change No c/o grew VRE, Stenotrophomonas from the wound He is on daptomycin Antibiotics daptomycin Allergies: Coded Allergies: penicillin G (Verified Allergy, Severe, Dizziness, 11/10/17) Objective . Vital Signs Date Time Temp Pulse Resp B/P (MAP) Pulse Ox O2 Delivery O2 Flow Rate FiO2 11/18/17 12:00 98.2 66 18 127/77 (94) 96 11/18/17 08:00 97.9 68 17 125/73 (90) 95 11/18/17 00:00 97.6 71 18 127/77 (94) 96 11/17/17 20:00 98.1 58 18 162/80 (107) 97 11/17/17 16:00 98.2 69 18 110/80 (90) 97 . Laboratory Tests Test 11/17/17 08:00 Creatinine 0.65 MG/DL Estimat Glomerular Filtration Rate 151 ML/MIN Imaging Last Impressions Lower Extremity MRI 11/11/17 0000 Signed Impressions: Service Date/Time: Saturday, November 11, 2017 09:02 - CONCLUSION: 1. There is a subcutaneous rim-enhancing fluid collection suspicious for abscess located along the anterolateral aspect of the proximal and mid leg measuring 6.4 x 1.2 x 20.4 cm. This collection is superficial to the anterior muscle compartment. There are no findings to indicate osteomyelitis. 2. Mild intramuscular and fascial edema within the anterior compartment muscles. Phil Villanueva MD Ankle MRI 11/11/17 0000 Signed Impressions: Service Date/Time: Saturday, November 11, 2017 18:27 - CONCLUSION: 1. Extensive tenosynovitis and cellulitis involving the anterior compartment without evidence of osteomyelitis. Al Jhaveri MD Foot X-Ray 11/10/17 0000 Signed Impressions: Service Date/Time: Friday, November 10, 2017 19:03 - CONCLUSION: 1. Osteopenia. No acute fracture. Dada Cardona MD Physical Exam CONSTITUTIONAL/GENERAL: This is an adequately nourished patient, in no apparent distress. TUBES/LINES/DRAINS: SKIN: No jaundice, rashes, or lesions. Skin temperature appropriate. Not diaphoretic. MUSCULOSKELETAL: Extremities without clubbing, cyanosis, Minimla LLE edema. + still quite prominent RLE with tree bark gillespie darge full thickness skin defect over anterior surface of fooo, ankle + visible tendon in wound bed No joint tenderness or effusion noted. No calf tenderness. No mottling or clubbing. Toes with extensive onychomychosis visualised skin is very dry and peeling Assessment & Plan Remarks Assessment and Plan Assessment and Plan R ankle abscess, MR, stenotrophomonas sp surgical debridement and VAC NO osteo Infection developped in chronic venostasis settings PCN allergy - severe; unawake of post Keflex use - OK to dc home change abx to zyvox, bactrim x 2 weeks fu CBC, CMP weekly on those abx - will adjust abx per clx report Ursula Salas MD Nov 18, 2017 15:49
--- NOTE | 2017-11-18 15:55 | PD.WCN.NOT ---
Neg Pressure Wound Therapy Wound Location Wound Location: Right Dorsal foot Wound Description Wound bed appearance: ~75% beefy red granular tissue ~25% moist tendon Periwound appearance: Unremarkable Settings Suction: 125 mmHg, Continuous Intensity: Low Other Information: Bridged, Windowpaned, Mushroomed Foam type: Black Number of pieces: 1 Additonal Information Patient seen on [facility] by brief writer and Dung RN for Wound vac change.Patient alert and oriented x3 in bed with lower extremities elevated.Dressing removed from RLE sponge soaked and removed without difficulty.Wound cleansed with normal saline pat dry adaptic gauze placed over exposed tendon.Skin prep applied to periwound then drape applied.Sponge applied to wound base and bridged to anterior tibial area.Track pad applied and connected to home wound VAC settings at 125mmHg with no leaks noted.Patient teaching on Wound VAC and alarms.Removing sponge if VAC is not remaining with continuous suction.Sponge can only remain in place for max of 2 hours if vac malfunctions then sponge must be removed and wet to dry dressing applied.Patient demonstrated understanding. Livier Billy [facility] Nov 18, 2017 15:55
[2017-11-18 16:00] VITALS: BP 129/75; PULSE 71; RESP 18; TEMP 98.4; O2SAT 96
[2017-11-18] MEDS ORDERED: SULFAMETHOXAZOLE-TRIMETHOPRIM DS 800-160 MG TAB PO SCH (21:00)
== END 2017-11-18 17:36 | disposition home health service (06) | DRG 580 ==
LOC: NEPC 18:29 → NEDA 21:18 → NEPGCP 22:20 → N07B 11-12 16:31
PROVIDERS: ADMIT Hospitalist; ATTEND Hospitalist
PROC: 0KBS0ZZ Excision of Right Lower Leg Muscle, Open Approach (ICD-10-PCS; 2017-11-12)
PROC: 0J9N0ZX Drainage of Right Lower Leg Subcutaneous Tissue and Fascia, Open Approach, Diagnostic (ICD-10-PCS; principal; 2017-11-12 22:22)
DX: L97.419 Non-pressure chronic ulcer of right heel and midfoot with unspecified severity (principal); L02.415 Cutaneous abscess of right lower limb; I10 Essential (primary) hypertension; L02.611 Cutaneous abscess of right foot; L03.115 Cellulitis of right lower limb; L97.319 Non-pressure chronic ulcer of right ankle with unspecified severity; L97.819 Non-pressure chronic ulcer of other part of right lower leg with unspecified severity; Z82.49 Family history of ischemic heart disease and other diseases of the circulatory system; M65.871 Other synovitis and tenosynovitis, right ankle and foot; M85.80 Other specified disorders of bone density and structure, unspecified site; E78.00 Pure hypercholesterolemia, unspecified; F10.20 Alcohol dependence, uncomplicated; M20.41 Other hammer toe(s) (acquired), right foot; E87.6 Hypokalemia; Z88.0 Allergy status to penicillin; R73.9 Hyperglycemia, unspecified
CPT/HCPCS: 73630; 73720; 73723; 80048; 80053; 80202; 82565; 83036; 83735; 84100; 84439; 84443; 85025; 85027; 85610; 85652; 85730; 86140; 87015; 87040; 87070; 87077; 87102; 87116; 87186; 87205; 87206; 94150; A9579; J0878; J1100; J1580; J1650; J2370; J2405; J3010; J3370; J7030; J7040; J7050